=== PATIENT | male | born 1940 | race Caucasian/White ===

== ENCOUNTER → 2016-11-13 | Outpatient (CLI) | payer BC ==
[~2016-11-13] MED LIST: ASPI325T39 PO; CLOP1TAB15 PO; FLM4 PO; METO25TA3 PO; NIAC750T2 PO; NTRGSL/4 UT; TIOTCAP INH
[2016-11-13 12:23] LABS: BASO % 0.4 %; BASO ABS # 0.02 K/uL (0-0.2); COMPLETE YES; EOS % 4.5 %; HEMATOCRIT 44.8 % (42-52); IG% 0.4 %; LYMPH % 27.8 %; LYMPH ABS # 1.41 K/uL (1.2-3.4); MEAN CELL VOLUME 98.9 fL (80-100); MEAN CORPUSCULAR HGB CONC 32.4 g/dl (32-36); MEAN PLATELET VOLUME 11.2 fL (7.4-10.4); MONO % 9.3 %; NEUT % 57.6 %; PLATELET COUNT 185 K/uL (130-400); RED BLOOD COUNT 4.53 M/uL (4.7-6.1); WHITE BLOOD COUNT 5.07 K/uL (4.8-10.8)
[2016-11-13 12:37] LABS: URINE APPEARANCE CLEAR (CLEAR); URINE BILIRUBIN NEG (NEG); URINE COLOR YELLOW; URINE EPITHELIAL CELL AUTO 0-5 /lpf (0-5); URINE NITRITE NEG (NEG); UROBILINOGEN NEG (NEG); ZZUR CULT IF INDIC CLEAN CATCH NO
[2016-11-13 12:43] LABS: MANUAL MICROSCOPIC REQUIRED? NO; REVIEW REQ? YES
[2016-11-13 13:17] LABS: ESTIMATED AVERAGE GLUCOSE 114 mg/dl; HA1C FLAG Normal (Normal)
[2016-11-13 14:19] LABS: ALT/SGPT 17 U/L (12-78); AST/SGOT 17 U/L (15-37); BLOOD UREA NITROGEN 26 mg/dl (7-18); BUN/CREATININE RATIO 18.8 (10-20); CARBON DIOXIDE 30 mmol/L (21-32); CHLORIDE 106 mmol/L (98-107); GLUCOSE 97 mg/dl (70-99); POTASSIUM 4.8 mmol/L (3.5-5.1); SODIUM 140 mmol/L (136-145)
[2016-11-13 14:21] LABS: CALCIUM 9.5 mg/dl (8.5-10.1)
[2016-11-13 14:24] LABS: ALB/GLOB RATIO 1.1 (0.9-2); ALKALINE PHOSPHATASE 41 U/L (45-117)
== END | disposition home or self-care (01) ==
LOC: C.LABBFT 08:22
PROVIDERS: ATTEND Internal Medicine
DX: I25.10 Atherosclerotic heart disease of native coronary artery without angina pectoris (principal); R73.01 Impaired fasting glucose

== ENCOUNTER 2018-09-20 08:54 | Inpatient (IN) ==
--- OUTSIDE RECORDS SUMMARY | 2018-09-20 08:57 | External Medical Summary | Continuity of Care Document ---
:1940 Author Name Seymour Cortes, Provider Address Unavailable Unavailable , Care Team Providers Name Role Phone Perry Zee M.D. Unavailable [email or web address] Nazario M.D. Unavailable [email or web address] [email or web address] HOWARD M.D. 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) Cataract (366.9) (H26.9) Preoperative clearance (V72.84) (Z01.818) Atypical chest pain (786.59) (R07.89) Generalized osteoarthritis of unspecified site (715.00) (M15 .9) Inflamed seborrheic keratosis (702.11) (L82.0) Hearing loss (389.9) (H91.90) Anemia (285.9) (D64.9) Nocturia (788.43) (R35.1) Sleep apnea (780.57) (G47.30) Hypercholesterolemia (272.0) (E78.00) Chronic obstructive pulmonary disease (496) (J44.9) Carotid artery plaque (433.10) (I65.29) Atherosclerosis of [place] coronary arter y without angina pectoris (414.01) (I25.10) Aortic stenosis, moderate (424.1) (I35.0) Hypertension (401.9) (I10) Impaired fasting glucose (790.21) (R73.01) Chronic kidney disease, stage 3 (585.3) (N18.3) Functional Status Hearing loss Allergies and Adverse Reactions irbesartan (Allergy) Reaction: Fatigue Iron (Allergy) Lipitor TABS (Allergy) Niacin TABS (Allergy) Reaction: Other Penicillins (Allergy) Pravachol TABS (Allergy) Zetia TABS (Allergy) Zinc (Allergy) Zocor TABS (Allergy) Medications Aspirin Low Dose 81 MG TABS; TAKE 1 TABLET DAILY. Sophia Nazario Refills: 0 Tamsulosin HCl - 0.4 MG Oral Capsule; TAKE 1 CAPSULE Daily Sophia Bardales Start: 07-Apr-2012 Quantity: 90 Refills: 3 Nitrostat 0.4 MG Sublingual Tablet Subli ngual; TAKE DIRECTED NEEDED FOR CHEST PAIN Sophia Nazario Start: 10-Sep-2011 Quantity: 25 Refills: 6 Metoprolol Succinate ER 50 MG Oral Table t Extended Release 24 Hour; TAKE 1 AND 1/2 TABLETS DAILY. Sophia Nazario Start: 18-Feb-2018 Quantity: 135 Refills: 3 Ventolin HFA 108 (90 Base) MCG/ACT Inhal ation Aerosol Solution; Two puffs every 4-6 hours as needed for shortness of breath. You may take 2 puffs prior to activity. Sophia Howard Start: 02-May-2017 Quantity: 3 18 GM Inhaler Refills: 3 Stiolto Respimat 2.5-2.5 MCG/ACT Inhalat ion Aerosol Solution; USE 2 INHALATIONS DAILY DIRECTED Sophia Howard Start: 26-May-2018 Quantity: 48 Refills: 0 Procedures History of Thoracotomy Status: Completed History of Appendectomy Status: Complete d History of Wrist Surgery Status: Complet ed History of Hernia Repair Status: Complet ed History of Rotator Cuff Repair Status: C ompleted Immunizations Diphtheria-Tetanus Toxoids 2-5 LFU Intramuscular Injectable On: 01-May-2000 Pneumococcal polysaccharide vaccine, 23 valent On: 2006 Influenza On: 24-Feb-2009 0:00 Influenza On: 09-May-2011 13:13 Lot #: [id number], [employer] Fluzone INJ On: 16-Apr-2012 10:41 Lot #: [id number], [employer] Influenza On: 05-May-2013 13:42 Lot #: [id number], [employer] Influenza On: 30-Mar-2014 12:35 Lot #: [id number], [employer] Prevnar 13 Intramuscular Suspension On: 04-Nov-2014 9:12 Lot #: [id number], [employer] Fluzone High-Dose Intramuscular Suspension On: 29-Mar-2015 1 0:53 Lot #: [id number], [employer] Influenza On: 09-May-2016 15:03 Lot #: [id number], [employer] Fluzone High-Dose Intramuscular Suspension On: 12-Mar-2017 1 0:35 Lot #: [id number], [employer] Fluzone High-Dose 0.5 ML Intramuscular Suspension Pref illed Syringe On: 10-Mar-2018 11:23 Lot #: [id number], [employer] Family History Unknown Family Member Family history of Colon Cancer (V16.0) Status: Active C omments: Family History Family history of Hypertension (V17.49) Status: Active Comments: Family History Mother No pertinent family history (V49.89) (Z78.9) Status: Active Brother Family history of cerebrovascular accident (CVA) (V17.1) (Z8 2.3) Status: Active Social History - Smoking Status Unknown if ever smoked Former smoker Plan of Treatment Planned Encounters Appointment; Stephon Nazario M.D. Start: 06-Oct-2018 9:45 Requ est Planned Observations Planned Goals not documented Results No Known Results Results not documented Encounters Appointment; Jak Howard M.D. 07-May-2018 8:30 Encounter Diagnosis: Problem not documented Appointment; Perry Zee M.D. 02-Apr-2018 9:15 Encounter Diagnosis: Problem not documented Appointment; Stephon Nazario M.D. 10-Mar-2018 10:00 Encounter Diagnosis: Problem not documented Appointment; MANISH OLSON 10-Mar-2018 9:30 Encounter Diagnosis: Problem not documented Appointment; Ava Aguilar PA-C 18-Feb-2018 11:00 Encounter Diagnosis: Problem not documented Appointment; Ava Aguilar PA-C 10-Feb-2018 10:00 Encounter Diagnosis: Problem not documented Appointment; Ava Aguilar PA-C 24-Jan-2018 14:30 Encounter Diagnosis: Problem not documented Appointment; Ethel Nunes PA-C 26-Dec-2017 9:00 Encounter Diagnosis: Problem not documented Appointment; Ava Aguilar PA-C 19-Dec-2017 10:30 Encounter Diagnosis: Problem not documented Appointment; Ava Aguilar PA-C 18-Nov-2017 9:00 Encounter Diagnosis: Problem not documented Appointment; Jak Howard M.D. 04-Nov-2017 13:10 Encounter Diagnosis: Problem not documented Appointment; Wellness, Nurse 04-Nov-2017 12:30 Encounter Diagnosis: Problem not documented Appointment; Vascular, Studies SC1 01-Oct-2017 14:00 Encounter Diagnosis: Problem not documented Appointment; Echo/Stress, Echo/Stress 30-Sep-2017 13:00 Encounter Diagnosis: Problem not documented Appointment; Perry Zee M.D. 26-Sep-2017 9:30 Encounter Diagnosis: Problem not documented Appointment; Pulmonary, Funct Testing 26-Sep-2017 8:30 Encounter Diagnosis: Problem not documented Appointment; Stephon Nazario M.D. 09-Sep-2017 10:30 Encounter Diagnosis: Problem not documented Appointment; Jak Howard M.D. 02-May-2017 8:10 Encounter Diagnosis: Problem not documented Appointment; Perry Zee M.D. 28-Mar-2017 10:30 Encounter Diagnosis: Problem not documented Appointment; Stephon Nazario M.D. 12-Mar-2017 10:00 Encounter Diagnosis: Problem not documented Appointment; Jak Howard M.D. 13-Nov-2016 7:50 Encounter Diagnosis: Problem not documented Appointment; Perry Zee M.D. 25-Sep-2016 10:15 Encounter Diagnosis: Problem not documented Appointment; Pulmonary, Funct Testing 25-Sep-2016 9:00 Encounter Diagnosis: Problem not documented Appointment; Stephon Nazario M.D. 20-Sep-2016 11:30 Encounter Diagnosis: Problem not documented Appointment; Stephon Nazario M.D. 06-Oct-2018 9:45 Encounter Diagnosis: Problem not documented
[2018-09-20] MEDS ORDERED: ASPIRIN CHEW 324 MG PO STA (09:20)
[2018-09-20 09:29] LABS: Basophils # (auto) 0.02 K/uL (0-0.2); Basophils % (auto) 0.4 %; Eosinophils # (auto) 0.41 K/uL (0-0.5); Eosinophils % (auto) 7.3 %; Hematocrit (blood only) 42.6 % (42-52); Hemoglobin 14.3 g/dL (14.0-18.0); Immature Granulocytes # (auto) 0.02 K/uL (0.00-0.02); Immature Granulocytes % (auto) 0.4 %; Lymphocytes # (auto) 1.24 K/uL (1.2-3.4); Lymphocytes % (auto) 22.1 %; Mean Corpuscular Hgb Conc 33.6 g/dL (32-36); Mean Platelet Volume 10.7 fL (7.4-10.4); Monocytes # (auto) 0.55 K/uL (0.11-0.59); Monocytes % (auto) 9.8 %; Neutrophils # (auto) 3.36 K/uL (1.4-6.5); Platelet Count 145 K/uL (130-400); RDW Coefficient of Variation 14.2 % (11.5-14.5); RDW Standard Deviation 50.6 fL (36.4-46.3); Red Blood Count 4.39 M/uL (4.7-6.1)
--- NOTE | 2018-09-20 09:42 | XRay Report ---
XR chest 1V portable CLINICAL HISTORY: Chest Pain COMPARISON STUDY: Chest radiograph February 05, 2011. FINDINGS: There is no pneumothorax or pleural effusion. Linear left lung opacity favors atelectasis o r scarring. There is no evidence for pulmonary edema. Note is made of mild cardiomegaly. Mediastinal contours are otherwise unremarkable. IMPRESSION: No acute cardiopulmonary findings. No significant change in appearance of the chest. Electronically signed by: Fletcher Rose M.D. 09/20/2018 9:41 AM
[2018-09-20 09:44] LABS: Albumin Level 3.6 gm/dl (3.4-5.0); Calcium 9.4 mg/dl (8.5-10.1); Creatinine Clr Calc Pharmacy 47.5 ml/min; Est GFR (African American) 51.8; Est GFR (Non-African American) 44.7; Potassium 4.6 mmol/L (3.5-5.1)
[2018-09-20 10:01] LABS: Bilirubin,Total 0.6 mg/dl (0.2-1); Globulin 3.5 gm/dl (2.5-4.0); Total Protein 7.1 gm/dl (6.4-8.2); Troponin I 2.6 ng/ml (0-0.045)
--- NOTE | 2018-09-20 10:34 | History & Physical Report ---
Date of Service September 20, 2018 Assessment & Plan (1) NSTEMI (non-ST elevated myocardial infarction): admit telemetry Stat consult cardiology - Dr. Richardson and Dr. Diaz discussed patient's case - recommends plavix, ASA, heparin gtt. ED discussed case with Dr. Conway who will see patient Patient currently without chest pain since nitro this morning EKG with infero lateral ST changes Patient unable to tolerate statins due to myalgias, Patient did not take his morning metoprolol today - will order dose now. Troponin 2.6 initially, will trend (2) Coronary artery disease: History DUC to circ treatment as above (3) Hypertension: continue metoprolol (4) COPD (chronic obstructive pulmonary disease): Continue tiotropium - olodaterol inhaler (5) Sleep apnea: may use own CPAP (6) CKD (chronic kidney disease), stage III: Baseline creatinine 1.4 - at baseline Renally dose medications where possible (7) DVT prophylaxis: heparin gtt, SCDs History of Present Illness Mr. Guzman presents today for chest pain. Pain started yesterday with pressure under right armpit. This morning at 0700 he had extension of pain across chest to left shoulder and shoulder blades. Took a nitro at that time which relieved his pain and then he presented to the ED. He had associated sob, lightheadedness, denies diaphoresis or nausea. No chest pain or sob now. He has had increased cough since August with small amount of sputum but it really . 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 [employer] Famhx: Mother of old age, father had cancer Primary Care Provider: Jak Howard MD Allergies Allergy/AdvReac Type Severity Reaction Status Date / Time iron Allergy Mild CHEST PAIN Verified 09/20/18 10:30 Penicillins Allergy Mild RASH Unverified 09/20/18 10:30 zinc Allergy Mild CHEST PAIN Verified 09/20/18 10:30 ezetimibe Allergy Unknown ACHE AND Verified 09/20/18 10:30 JOINT PAIN metoprolol Allergy Unknown AT HIGHER Verified 09/20/18 10:30 DOSAGE - MUSCLES ACHES irbesartan [From Avapro] Allergy Unknown Unverified 09/20/18 10:31 atorvastatin AdvReac Mild INTOLERANT Verified 09/20/18 10:30 simvastatin AdvReac Mild INTOLERANT Verified 09/20/18 10:30 Home Medications Home Medications Medication Instructions Recorded Confirmed Type aspirin 81 mg PO DAILY 09/20/18 09/20/18 History metoprolol succinate [Toprol XL] 50 mg PO DAILY 09/20/18 09/20/18 History nitroglycerin [Nitrostat] 0.4 mg SUBLINGUAL DAILY 09/20/18 09/20/18 History tamsulosin 0.4 mg PO DAILY 09/20/18 09/20/18 History tiotropium-olodaterol [Stiolto 1 puff INHALATION DAILY 09/20/18 09/20/18 History Respimat] Past Med/Surg History Medical History Coronary artery disease (Chronic) Surgical History History of coronary artery stent placement Family History Other Family history non-contributory Social History Preferred Language: Spanish Hydrotherapist Required: No Beliefs That Will Affect Care: None marital status: Current Living Situation: Alone current occupational status: retired Other Information That Helps Us Care for You: No Feels Safe at Home: Yes Smoking Status: Former smoker Hx Alcohol Use: Yes Alcohol type: beer and wine Hx Substance Use: No Review of Systems Review of Systems: All systems reviewed & are unremarkable except as noted in HPI & below Physical Exam Physical Exam: General: no distress Eyes: normal inspection, PERLL Respiratory: chest non tender, clear to auscultation, normal breath sounds, no respiratory distress, no accessory muscle use Cardiac: regular rate and rhythm, no rub or gallop, systolic murmur LLSB II/, no edema, no jvd GI/: active bowel sounds, no abd pain or tenderness, soft, non distended Extremities: normal range of motion, normal strength, non tender Neuro/Psych: alert and oriented x 3, normal mood and affect Skin: normal color, dry Results & Data Vital Signs (Past 12 Hours) Vital Signs Temp Pulse Pulse Resp BP BP Pulse Ox 09/20/18 10:02 53 L 16 112/90 95 09/20/18 09:04 36.8 C 56 L 18 174/88 H 98 Code Status & VTE Plan Code Status full code Supervising Physician Co-Signing Physician Notes I supervised Aniyah Durbin NP on this admission. I interviewed and examined the patient independently of her, and we discussed the plan together. The plan is as written in her note except for any following changes/exceptions: 78yo M w/ hx of CAD with stent ~10 years ago now presents with chest pain convincing for ischemia. Resolved after single nitro. Troponin elevated to [address] Richardson. - Initiate DAPT - Heparin gtt - Continue beta-christelle - Trend troponins and EKGs - Echo - Plan for cath on Saturday
[2018-09-20] MEDS ORDERED: CLOPIDOGREL BISULFATE 300 MG TAB PO STA (10:58)
[2018-09-20 11:18] LABS: Partial Thromboplastin Ratio 0.9; Partial Thromboplastin Time 25.2 Seconds (21.0-31.0); Prothrombin Time 9.9 Seconds (9.0-12.0)
[2018-09-20] MEDS ORDERED: HEPARIN SOD (PORCINE) 1000 UNIT/ML 10 ML VIAL ONE (11:19)
[2018-09-20] MEDS ORDERED: HEPARIN 25000 UNIT/500 ML D5W IV ONE (11:19)
[2018-09-20] MEDS ORDERED: ONDANSETRON INJ 2 MG/ML 2 ML VIAL IV PRN (11:27)
[2018-09-20] MEDS ORDERED: ACETAMINOPHEN 325 MG TAB PO PRN (11:27)
[2018-09-20] MEDS ORDERED: POLYETHYLENE (MIRALAX) 17 GM PACK PO PRN (11:27)
--- NOTE | 2018-09-20 11:32 | Emergency Department Note ---
Entered by Clarissa Franco acting as a scribe for Rodrigo Farias MD History of Present Illness General Chief complaint: Chest Pain Stated complaint: CHEST PAIN/CARDIAC HX Time Seen by Provider: 09/20/18 09:15 Source: patient History of Present Illness Onset (ago): hour(s) (this morning) Location: chest Pain Consistency: + now resolved and + other (episode) Maximum Pain Intensity: 0 Quality: + other (chest pressure) Relieved By: + medication (nitro) Associated symptoms: + shortness of breath and + other (pain in left arm/shoulder) The patient is a 78 year old male that is presenting to the Emergency Room with complaints of an episode of chest pain that occurred this morning around 0700. The patient reports that he woke up and noticed some discomfort in his left shoulder/arm that was not resolved by a change in position. He states that he had shortness of breath when he got up and walked around. He notes that he started experiencing pressure in his chest that radiated to his right shoulder blade. He reports that he took a nitroglycerin at that time. He states that he started having a tingly and warm feeling in his bilateral arms along with a ri ght-sided headache after taking the nitro. He notes that these symptoms have since resolved and that he feels well now. He denies any pain at present. He states that the episode lasted for around 30-45 minutes. He notes that he was experiencing some chest discomfort yesterday on the right side that radiated to his right armpit. The patient reports that he has a history of heart disease and had stents placed about 10 years. He notes that he has not had to take nitro since this time and he denies that his current symptoms resemble his symptoms at that time. He states that he takes aspirin daily but notes that he has not taken any of his medications today. He denies taking any blood thinners as he was taken off Plavix one year ago. He denies any rashes or any overuse of his arms. He notes that he is scheduled to have stress tests and an EKG in 2 days. Home Medications Home Medications Medication Instructions Recorded Confirmed Type aspirin 81 mg PO DAILY 09/20/18 09/20/18 History metoprolol succinate [Toprol XL] 50 mg PO DAILY 09/20/18 09/20/18 History nitroglycerin [Nitrostat] 0.4 mg SUBLINGUAL DAILY 09/20/18 09/20/18 History tamsulosin 0.4 mg PO DAILY 09/20/18 09/20/18 History tiotropium-olodaterol [Stiolto 1 puff INHALATION DAILY 09/20/18 09/20/18 History Respimat] Allergies Allergy/AdvReac Type Severity Reaction Status Date / Time iron Allergy Mild CHEST PAIN Verified 09/20/18 10:30 Penicillins Allergy Mild RASH Unverified 09/20/18 10:30 zinc Allergy Mild CHEST PAIN Verified 09/20/18 10:30 ezetimibe Allergy Unknown ACHE AND Verified 09/20/18 10:30 JOINT PAIN metoprolol Allergy Unknown AT HIGHER Verified 09/20/18 10:30 DOSAGE - MUSCLES ACHES irbesartan [From Avapro] Allergy Unknown Unverified 09/20/18 10:31 atorvastatin AdvReac Mild INTOLERANT Verified 09/20/18 10:30 simvastatin AdvReac Mild INTOLERANT Verified 09/20/18 10:30 Past Med/Surg History Medical History Coronary artery disease (Chronic) Surgical History History of coronary artery stent placement Family History Other Family history non-contributory Social History Preferred Language: [place] 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 and A total of 10 systems reviewed and were otherwise negative Physical Exam Vital Signs Vital Signs - 24 hr 09/20/18 09:04 09/20/18 10:02 09/20/18 10:57 Temperature 36.8 C Temperature Source Oral Sepsis Recent Fever Within 48 Hours No Sepsis New/Unexplained Change in Mental Status No Sepsis Action Taken by Nursing No Action Required Pulse Rate 56 L Pulse Rate [Apical] 53 L 50 L Pulse Rhythm [Apical] Pulse Strength [Apical] Respiratory Rate 18 16 16 Respiratory Effort / Characteristics Respiratory Depth Respiratory Pattern Blood Pressure 174/88 H Blood Pressure [Right Arm] 112/90 149/87 H Blood Pressure Mean 116 Blood Pressure Mean [Right Arm] 97 107 Blood Pressure Position Sitting Blood Pressure Position [Right Arm] Pulse Oximetry 98 95 95 Oxygen Delivery Method Room Air Room Air Room Air 09/20/18 12:06 09/20/18 12:08 09/20/18 12:10 Temperature 36.8 C 36.8 C Temperature Source Oral Oral Sepsis Recent Fever Within 48 Hours Sepsis New/Unexplained Change in Mental Status Sepsis Action Taken by Nursing Pulse Rate 50 L Pulse Rate [Apical] 51 L 51 L Pulse Rhythm [Apical] Regular Regular Pulse Strength [Apical] Normal Normal Respiratory Rate 18 Respiratory Effort / Characteristics Non-Labored Non-Labored Respiratory Depth Normal Normal Respiratory Pattern Regular Regular Blood Pressure Blood Pressure [Right Arm] 177/87 H 177/87 H Blood Pressure Mean Blood Pressure Mean [Right Arm] 117 117 Blood Pressure Position Blood Pressure Position [Right Arm] Sitting Pulse Oximetry 96 96 Oxygen Delivery Method Room Air Room Air 09/20/18 15:20 Temperature 36.5 C Temperature Source Oral Sepsis Recent Fever Within 48 Hours Sepsis New/Unexplained Change in Mental Status Sepsis Action Taken by Nursing Pulse Rate Pulse Rate [Apical] 50 L Pulse Rhythm [Apical] Pulse Strength [Apical] Respiratory Rate 18 Respiratory Effort / Characteristics Respiratory Depth Respiratory Pattern Blood Pressure Blood Pressure [Right Arm] 173/91 H Blood Pressure Mean Blood Pressure Mean [Right Arm] 118 Blood Pressure Position Blood Pressure Position [Right Arm] Lying Pulse Oximetry 96 Oxygen Delivery Method Room Air General: Non-ill appearing older male in no acute distress. HEENT: Normal cephalic atraumatic. Pupils are equal round and reactive to light. Extraocular movements are intact. Oropharynx is pink with moist mucous membranes. No swelling of the mouth lips or tongue. Neck: Supple with a midline trachea. No meningeal signs or stiffness, no JVD or bruits. No Stridor. Chest: Clear to auscultation bilaterally. No wheezes or rhonchi. No increased work of breathing. Heart: regular rate and rhythm. Abdomen: Soft nontender, nondistended without rebound guarding or rigidity. Extremities: No cyanosis clubbing or edema. No calf tenderness or asymmetry Spine/Back. Non tender to palpation. No CVA tenderness Skin: Good turgor without rashes. Neurologic exam: Cranial nerves two through 12 are intact. Motor and sensation are intact and symmetrical throughout. Course 0917:The patient was evaluated in room B10. A complete history and physical examination was performed. 0949: I discussed the patient's case with Dr. Wynn, Cardiology, who will evaluate the patient and determine a treatment plan. 1006: I discussed the patient's case with Dr. Diaz, [facility] Hospitalist, who will evaluate the patient for further care. 1015: Upon reevaluation, the patient is resting comfortably. I discussed laboratory and radiographic results with the patient. He verbalized agreement of the treatment plan. The patient will be evaluated for further management and care. Consultations Consultation #1: I discussed the patient's case with Dr. Wynn, Cardiology, who will evaluate the patient and determine a treatment plan. Time: 09:49 Consultation #2: I discussed the patient's case with Dr. Diaz [facility] Hospitalis t, who will evaluate the patient for further care. Time: 10:06 Administered Medications Heparin Sodium/Dextrose (Heparin Sodium/Dextrose) 25,000 units in 500 mls @ 29 mls/hr IV .[id number] [facility]; Protocol Stop: 10/20/18 12:29 Last Admin: 09/20/18 12:32 Dose: 1,450 units/hr, 29 mls/hr Documented by: [id number] Cosigned by: [id number] Metoprolol Succinate (Toprol Xl) 75 mg PO DAILY [facility] Stop: 10/20/18 11:59 Last Admin: 09/20/18 13:21 Dose: 75 mg Documented by: [id number] Discontinued Medications Aspirin (Aspirin) 324 mg PO NOW STA Stop: 09/20/18 09:21 Last Admin: 09/20/18 10:00 Dose: 324 mg Documented by: [id number] Clopidogrel Bisulfate (Plavix) 300 mg PO NOW STA Stop: 09/20/18 10:59 Last Admin: 09/20/18 11:26 Dose: 300 mg Documented by: [id number] Heparin Sodium (Porcine) (Heparin Iv Bolus) Confirm Administered Dose 10,000 units .ROUTE .[facility] Stop: 09/20/18 11:20 Last Admin: 09/20/18 11:28 Dose: 7,000 units Documented by: [id number] Cosigned by: [id number] Heparin Sodium/Dextrose () 1 ea IV NOW STA; Protocol Stop: 09/20/18 10:55 Last Admin: 09/20/18 12:31 Dose: 1 ea Documented by: [id number] Heparin Sodium/Dextrose (Heparin Sodium/Dextrose) Confirm Administered Dose 25,000 units IV .[facility]-MED ONE Stop: 09/20/18 11:20 Last Admin: 09/20/18 11:28 Dose: 1,450 units Documented by: [id number] Cosigned by: [id number] Perflutren Lipid Microsphere (Definity) 2 ml IV ONCE ONE Stop: 09/20/18 13:45 Last Admin: 09/20/18 13:44 Dose: 2 ml Documented by: [id number] Medical Decision Making Differential Diagnosis Differential Diagnosis: Etiologies such as acute coronary syndrome, PE, musculoskeletal, electrolyte or metabolic abnormalities as well as others were considered. Medical Records Attestation: I reviewed the patient's medical records. Home Medications Current Medication List: was personally reviewed by me Laboratory Data Attestation: I reviewed the patient's lab results. Result diagrams: 09/20/18 09:14 09/20/18 09:14 Lab Results 09/20/18 09/20/18 09/20/18 Range/Units 09:14 09:14 09:14 WBC 5.60 (4.8-10.8) K/uL RBC 4.39 L (4.7-6.1) M/uL Hgb 14.3 (14.0-18.0) g/dL Hct 42.6 (42-52) % MCV 97.0 (80-100) fL MCH 32.6 (25-34) pg MCHC 33.6 (32-36) g/dL RDW Std Deviation 50.6 H (36.4-46.3) fL RDW Coeff of Yolande 14.2 (11.5-14.5) % Plt Count 145 (130-400) K/uL MPV 10.7 H (7.4-10.4) fL Immature Gran % (Auto) 0.4 % Neut % (Auto) 60.0 % Lymph % (Auto) 22.1 % [place] % (Auto) 9.8 % Eos % (Auto) 7.3 % Baso % (Auto) 0.4 % Immature Gran # (Auto) 0.02 (0.00-0.02) K/uL Neut # (Auto) 3.36 (1.4-6.5) K/uL Lymph # (Auto) 1.24 (1.2-3.4) K/uL [place] # (Auto) 0.55 (0.11-0.59) K/uL Eos # (Auto) 0.41 (0-0.5) K/uL Baso # (Auto) 0.02 (0-0.2) K/uL PT 9.9 (9.0-12.0) Seconds INR 1.0 (0.9-1.1) APTT 25.2 (21.0-31.0) Seconds PTT Ratio 0.9 Sodium 142 (136-145) mmol/L Potassium 4.6 (3.5-5.1) mmol/L Chloride 110 H (98-107) mmol/L Carbon Dioxide 27 (21-32) mmol/L Anion Gap 5.0 (3-11) BUN 19 H (7-18) mg/dl Creatinine 1.48 H (0.6-1.4) mg/dl Est Cr Clr Drug Dosing 47.5 ml/min Est GFR ( Amer) 51.8 Est GFR (Non-Af Amer) 44.7 BUN/Creatinine Ratio 13.0 (10-20) Glucose 101 H (70-99) mg/dl Calcium 9.4 (8.5-10.1) mg/dl Total Bilirubin 0.6 (0.2-1) mg/dl AST 30 (15-37) U/L ALT 19 (12-78) U/L Alkaline Phosphatase 41 L (45-117) U/L POC Troponin I (0-0.045) ng/ml Troponin I 2.600 H* (0-0.045) ng/ml Total Protein 7.1 (6.4-8.2) gm/dl Albumin 3.6 (3.4-5.0) gm/dl Globulin 3.5 (2.5-4.0) gm/dl Albumin/Globulin Ratio 1.0 (0.9-2) Lipase 165 (73-393) U/L 09/20/18 Range/Units 09:25 WBC (4.8-10.8) K/uL RBC (4.7-6.1) M/uL Hgb (14.0-18.0) g/dL Hct (42-52) % MCV (80-100) fL MCH (25-34) pg MCHC (32-36) g/dL RDW Std Deviation (36.4-46.3) fL RDW Coeff of Yolande (11.5-14.5) % Plt Count (130-400) K/uL MPV (7.4-10.4) fL Immature Gran % (Auto) % Neut % (Auto) % Lymph % (Auto) % [place] % (Auto) % Eos % (Auto) % Baso % (Auto) % Immature Gran # (Auto) (0.00-0.02) K/uL Neut # (Auto) (1.4-6.5) K/uL Lymph # (Auto) (1.2-3.4) K/uL [place] # (Auto) (0.11-0.59) K/uL Eos # (Auto) (0-0.5) K/uL Baso # (Auto) (0-0.2) K/uL PT (9.0-12.0) Seconds INR (0.9-1.1) APTT (21.0-31.0) Seconds PTT Ratio Sodium (136-145) mmol/L Potassium (3.5-5.1) mmol/L Chloride (98-107) mmol/L Carbon Dioxide (21-32) mmol/L Anion Gap (3-11) BUN (7-18) mg/dl Creatinine (0.6-1.4) mg/dl Est Cr Clr Drug Dosing ml/min Est GFR ( Amer) Est GFR (Non-Af Amer) BUN/Creatinine Ratio (10-20) Glucose (70-99) mg/dl Calcium (8.5-10.1) mg/dl Total Bilirubin (0.2-1) mg/dl AST (15-37) U/L ALT (12-78) U/L Alkaline Phosphatase (45-117) U/L POC Troponin I 2.08 H (0-0.045) ng/ml Troponin I (0-0.045) ng/ml Total Protein (6.4-8.2) gm/dl Albumin (3.4-5.0) gm/dl Globulin (2.5-4.0) gm/dl Albumin/Globulin Ratio (0.9-2) Lipase (73-393) U/L Imaging Data Radiologist's Impression: Radiology results as stated below per my review and the radiologist's interpretation: XR chest 1V portable CLINICAL HISTORY: Chest Pain COMPARISON STUDY: Chest radiograph February 05, 2011. FINDINGS: There is no pneumothorax or pleural effusion. Linear left lung opacity favors atelectasis or scarring. There is no evidence for pulmonary edema. Note is made of mild cardiomegaly. Mediastinal contours are otherwise unremarkable. IMPRESSION: No acute cardiopulmonary findings. No significant change in appearance of the chest. Electronically signed by: Fletcher Rose M.D. 09/20/2018 9:41 AM ECG Data Attestation: I personally reviewed and interpreted this ECG as follows: Indication: chest pain Rhythm: normal sinus Findings: + other (inferior biphasic t waves) Comparison ECG Date: from (04/27/2011) Change: the following changes noted (biphasic t waves) Blood Pressure Blood Pressure Findings: Normal blood pressure MDM Narrative This patient comes in as described above. He was placed in room B 10. he has a history of coronary disease and has not had nitroglycerin usage for many years comes in after having an episode of chest pain that was severe this morning. it lasted about 20 to 30 minutes and he took a nitro felt sick for a minute and got better. There is associated nausea and shortness of breath when he had the chest pain. he also had some vague right-sided chest pain last evening. Today was bilateral. He is asymptomatic at present and looks well. IV access established was ordered aspirin 324 mg chewable. he has not yet taken his aspirin today. he did come in by private vehicle. His initial EKG shows some nonspecific ST abnormality with biphasic T waves inferiorly and some possible mild depression in V3 and 4. I did a subsequent EKG is no change or progression compared to EKG #1. his troponin was elevated to greater than 2 however he is been asymptomatic and pain-free during his entire visit. chest x-ray was unremarkable. he has some chronic renal insufficiency seen on his blood work. I did consult Dr. Flores and as I was concerned that the patient had an elevated troponin and some EKG changes but at this point he does not meet criteria for acute STEMI or acute cath and again is asymptomatic. I also consulted the [facility] hospitalist to see him for these measures. He will be admitted for further cardiac evaluation and work-up. Impression & Plan Unstable angina, Chest pain, Elevated troponin Discharge Plan Visit Data *Final* Discharge Date/Time: 09/20/18 11:13 Chief Complaint: Chest Pain Stated Complaint: CHEST PAIN/CARDIAC HX ED Provider: Rodrigo Farias Discharge Problem: Unstable angina, Chest pain, Elevated troponin Patient Disposition: Admitted As Inpatient Discharge Instructions Interventions: ED Discharge Assessment Last Done: 09/20/18 11:13 Discharge Problem: Chest pain Qualifiers: Chest pain type: unspecified Qualified Code(s): R07.9 - Chest pain, unspecified The scribe's documentation has been prepared under my direction and personally reviewed by me in its entirety. I confirm that the note above accurately reflects all work, treatment, procedures, and medical decision making performed by me.
--- NOTE | 2018-09-20 12:10 | Cardiology Consultation ---
Date of Consultation September 20, 2018 Assessment & Plan (1) Chest pain: He presents with several episodes of chest discomfort this morning which are highly suspicious for angina, they occurred at rest which would be consistent with unstable angina. He has not had these symptoms since stent placement, he did take a nitroglycerin which she has never used before. Ultimately the discomfort resolved before he came into the emergency room but was present for perhaps several hours including when he first got up at 430 or 5 in the morning and initially had the discomfort. Additionally he had some atypical discomfort the evening before, it does not sound anginal but it is unusual for him to have that discomfort. I believe the discomfort this morning was ischemic. (2) Elevated troponin: His troponin is elevated to 2.8 on arrival this morning. He does not have an ST segment elevation myocardial infarction, so this could be demand ischemia or a non-ST segment elevation myocardial infarction. Since his pain was relieved following the nitroglycerin he was admitted for conservative management for the weekend, including increase in his platelet inhibitors in addition of an anticoagulant. I would like to see the trend of his troponin but almost certainly this represents some type of progression of coronary artery disease. (3) Coronary artery disease: He has known coronary artery disease and stent placement but has not had problems with angina and has not had exertional symptoms recently. Most likely he has progression of disease. He has been treated for it with aspirin, he lists intolerances to most of the statin agents so he is not on a statin. As long as he does not have recurrent symptoms to suggest an unstable pattern we will plan on catheterization on Saturday. History of Present Illness Reason for Consultation: Chest discomfort Attending Physician: Willi Diaz MD History of Present Illness This is a very pleasant 78-year-old gentleman who has a history of hypercholesterolemia, hypertension, moderate aortic stenosis as well as atherosclerosis involving the carotid arteries (although not severe), subclavian artery and coronary artery disease. His coronary artery disease history includes a non-ST elevation myocardial infarction March 2010 where he had a stent placed in the proximal circumflex for a 95% stenosis. Subsequently his left ventricular function was slightly diminished at about 50%. By September 2017 he had normal left ventricular function, moderate aortic stenosis with a valve area 1.2 cm. He is actually scheduled for routine echocardiography September 22, 2018 to follow his valve. He presented to the emergency room today with chest discomfort starting at around 430 or 5:00 AM this morning, he woke up not feeling right, walked out to the kitchen and was quite short of breath and had to go back to his room and put on his BiPAP machine. This was unusual for him. This happened again at 7 AM this morning. He describes discomfort in his left shoulder and arm, associated with shortness of breath and a pressure sensation in his chest. He took a nitroglycerin, that did not resolve the symptoms immediately although they did resolve before he came into the emergency room. He did have some atypical discomfort the day before, this was right-sided with radiation to his right arm. In the emergency room his troponin was elevated to 2.6, his electrocardiogram showed some ST depression which is more nonspecific than diagnostic of ischemia and no ST elevation. By then his symptoms had resolved however. Allergies Allergy/AdvReac Type Severity Reaction Status Date / Time iron Allergy Mild CHEST PAIN Verified 09/20/18 10:30 Penicillins Allergy Mild RASH Unverified 09/20/18 10:30 zinc Allergy Mild CHEST PAIN Verified 09/20/18 10:30 ezetimibe Allergy Unknown ACHE AND Verified 09/20/18 10:30 JOINT PAIN metoprolol Allergy Unknown AT HIGHER Verified 09/20/18 10:30 DOSAGE - MUSCLES ACHES irbesartan [From Avapro] Allergy Unknown Unverified 09/20/18 10:31 atorvastatin AdvReac Mild INTOLERANT Verified 09/20/18 10:30 simvastatin AdvReac Mild INTOLERANT Verified 09/20/18 10:30 Home Medications Home Medications Medication Instructions Recorded Confirmed Type aspirin 81 mg PO DAILY 09/20/18 09/20/18 History metoprolol succinate [Toprol XL] 50 mg PO DAILY 09/20/18 09/20/18 History nitroglycerin [Nitrostat] 0.4 mg SUBLINGUAL DAILY 09/20/18 09/20/18 History tamsulosin 0.4 mg PO DAILY 09/20/18 09/20/18 History tiotropium-olodaterol [Stiolto 1 puff INHALATION DAILY 09/20/18 09/20/18 History Respimat] Patient History Medical History Coronary artery disease (Chronic) Surgical History History of coronary artery stent placement Family History Other Family history non-contributory Social History Preferred Language: Welsh marital status: Current Living Situation: Spouse current occupational status: retired Feels Safe at Home: Yes Review of Systems Review of Systems: All systems reviewed & are unremarkable except as noted in HPI & below Physical Exam Physical Exam: Constitutional: Alert, cooperative and in no distress. HEENT: Unremarkable Neck: No jugular venous distention, carotid pulses are normal and equal bilaterally without bruits. Pulmonary: Clear to auscultation bilaterally. Cardiac: Regular rhythm with a grade 3/6 crescendo decrescendo murmur at the base, no gallop or rub. Abdomen: Soft, nontender with normal bowel sounds. Extremities: No edema. Distal pulses intact. Neurologic: No focal findings. Gait is steady. Skin: No rash, ecchymoses or petechiae. Results & Data Vital Signs (Past 12 Hours) Vital Signs Temp Pulse Pulse Resp BP BP Pulse Ox 09/20/18 12:06 36.8 C 51 L 18 177/87 H 96 09/20/18 10:57 50 L 16 149/87 H 95 09/20/18 10:02 53 L 16 112/90 95 09/20/18 09:04 36.8 C 56 L 18 174/88 H 98 Diagnostic Findings His electrocardiogram on arrival shows sinus bradycardia at 50 bpm with LVH and some ST-T abnormalities which could be from LVH or possibly ischemic but there is no consistent ST depression and there is no ST elevation. (1) Chest pain Chest pain type: unspecified Qualified Code(s): R07.9 - Chest pain, unspecified
[2018-09-20] MEDS: Heparin Adult STANDARD Wt-Based Dextrose 5% 25,000 units/500 mL IV SCH (12:32)
[2018-09-20] MEDS: METOPROLOL SUCC 50MG EXT REL TAB PO SCH (13:21)
[2018-09-20] MEDS ORDERED: PERFLUTREN LIPID MICROSPHERE (DEFINITY) IV ONE (13:44)
[2018-09-20 17:58] LABS: Partial Thromboplastin Ratio 3.9
[2018-09-20 18:03] LABS: Partial Thromboplastin Time 105.6 Seconds (21.0-31.0)
[2018-09-21 00:21] LABS: Partial Thromboplastin Ratio 2.1
[2018-09-21 00:32] LABS: Partial Thromboplastin Time 57.8 Seconds (21.0-31.0)
[2018-09-21] MEDS: Heparin Adult STANDARD Wt-Based Dextrose 5% 25,000 units/500 mL IV SCH (06:40)
[2018-09-21 06:41] LABS: Hematocrit (blood only) 41.2 % (42-52); Hemoglobin 13.9 g/dL (14.0-18.0); Mean Corpuscular Hgb Conc 33.7 g/dL (32-36); Mean Corpuscular Volume 95.8 fL (80-100); Mean Platelet Volume 11.2 fL (7.4-10.4); Platelet Count 150 K/uL (130-400); RDW Coefficient of Variation 14.4 % (11.5-14.5); RDW Standard Deviation 50.5 fL (36.4-46.3); White Blood Count 6.15 K/uL (4.8-10.8)
[2018-09-21 07:02] LABS: Partial Thromboplastin Ratio 2.3
[2018-09-21 07:07] LABS: Partial Thromboplastin Time 61.2 Seconds (21.0-31.0)
[2018-09-21 07:16] LABS: BUN Creatinine Ratio 14.9 (10-20); Calcium 9.2 mg/dl (8.5-10.1); Creatinine Clr Calc Pharmacy 50.2 ml/min; Est GFR (African American) 55.4; Est GFR (Non-African American) 47.8
[2018-09-21] MEDS: METOPROLOL SUCC 50MG EXT REL TAB PO SCH ×3 (07:20→09:26)
[2018-09-21] MEDS: CLOPIDOGREL BISULFATE 75 MG TAB PO SCH (08:31)
[2018-09-21] MEDS: TAMSULOSIN HCL 0.4 MG CAP PO SCH (08:32)
[2018-09-21] MEDS: ASPIRIN 81 MG ECTAB PO SCH (08:32)
[2018-09-21] MEDS ORDERED: NITROGLYCERIN SL 0.4 MG/TAB TAB SL SCH (09:00)
[2018-09-21] MEDS ORDERED: NITROGLYCERIN SL 0.4 MG/TAB TAB SL PRN (09:06)
--- NOTE | 2018-09-21 09:14 | Cardiology Progress Note ---
Date of Service September 21, 2018 Assessment & Plan (1) Chest pain: He presents with several episodes of chest discomfort this morning which are highly suspicious for angina, they occurred at rest which would be consistent with unstable angina. He had not had these symptoms since stent placement, he did take a nitroglycerin which he has never used before. Ultimately the discomfort resolved before he came into the emergency room but was present for perhaps several hours including when he first got up at 430 or 5 in the morning and initially had the discomfort. Additionally he had some atypical discomfort the evening before, it does not sound anginal but it is unusual for him to have that discomfort. His troponin has climbed consistent with a non-ST segment elevation myocardial infarction. I believe the discomfort was due to myocardial ischemia. (2) Elevated troponin: His troponin was elevated to 2.8 on arrival yesterday, that has climbed to 11.3 late last evening. He does not have an ST segment elevation myocardial infarction, so this could be demand ischemia but seems more consistent with a non-ST segment elevation myocardial infarction. Since his pain was relieved following the nitroglycerin he was admitted for conservative management for the weekend, including increase in his platelet inhibitors and addition of an anticoagulant. He will need catheterization for coronary evaluation and probable intervention. (3) Coronary artery disease: He has known coronary artery disease and stent placement but has not had problems with angina and has not had exertional symptoms until the day before admission. Most likely he has progression of disease. He has been maintained on aspirin, he lists intolerances to most of the statin agents so he is not on a statin. As long as he does not have recurrent symptoms to suggest an unstable pattern we will plan on catheterization on Saturday. I discussed this with him and he is agreeable. (4) Bradycardia: He has sinus bradycardia with a heart rate which is often in the 40s. He is on metoprolol succinate, 75 mg daily, and has been on 50 mg at home for some time I believe. I am going to reduce it back to 50 mg even though may be beneficial for his angina, we can give him additional doses if needed for recurrent symptoms but bradycardia may not be beneficial either to that extent. Subjective He is feeling well this morning, he has had no further chest discomfort since admission. He is bradycardic but has no complaints of lightheadedness or dizziness. No shortness of breath. Physical Exam Physical Exam: Constitutional: Alert, cooperative and in no distress. Pulmonary: Clear to auscultation bilaterally. Cardiac: Regular rhythm with a grade 2/6 crescendo decrescendo murmur, no gallop or rub. Abdomen: Soft, nontender with normal bowel sounds. Extremities: No edema. Skin: No rash, ecchymoses or petechiae. Results & Data Vital Signs (Past 12 Hours) Vital Signs Temp Pulse Pulse Resp BP Pulse Ox 09/21/18 06:50 36.8 C 52 L 18 162/69 H 96 09/21/18 03:20 37 C 54 L 16 177/82 H 96 09/21/18 00:30 53 L 09/20/18 23:19 37.1 C 52 L 19 179/94 H 92 Diagnostic Findings Telemetry: Sinus rhythm and sinus bradycardia, heart rates in the 40s at times. No tachycardia. (1) Chest pain Chest pain type: unspecified Qualified Code(s): R07.9 - Chest pain, unspecified
--- NOTE | 2018-09-21 10:57 | Hospitalist Progress Note ---
Date of Service September 21, 2018 Assessment & Plan (1) NSTEMI (non-ST elevated myocardial infarction): Consulted cardiology - will have cath Saturday, npo after mn Patient currently without chest pain since nitro this morning EKG with infero lateral ST changes on admission Patient unable to tolerate statins due to myalgias, Troponin 2.6 on presentation to ED, peaked at 11 and trended down Continue heparin gtt, plavix, asa, metoprolol (2) Coronary artery disease: History DUC to circ treatment as above (3) Hypertension: continue metoprolol (4) COPD (chronic obstructive pulmonary disease): Continue tiotropium - olodaterol inhaler (5) Sleep apnea: may use own CPAP (6) CKD (chronic kidney disease), stage III: Baseline creatinine 1.4 - at baseline Renally dose medications where possible (7) DVT prophylaxis: heparin gtt, SCDs Subjective Mr. Guzman did well over the night, no chest pain. He has no complaints this morning Review of Systems Review of Systems: All systems reviewed & are unremarkable except as noted in HPI & below Physical Exam Physical Exam: General: no distress Eyes: normal inspection, PERLL Respiratory: chest non tender, clear to auscultation, normal breath sounds, no respiratory distress, no accessory muscle use Cardiac: regular rate and rhythm, no rub or gallop, systolic murmur, no edema, no jvd GI/: active bowel sounds, no abd pain or tenderness, soft, non distended Extremities: normal range of motion, normal strength, non tender Neuro/Psych: alert and oriented x 3, normal mood and affect Skin: normal color, dry Results & Data Vital Signs (Past 12 Hours) Vital Signs Temp Pulse Pulse Resp BP Pulse Ox 09/21/18 06:50 36.8 C 52 L 18 162/69 H 96 09/21/18 03:20 37 C 54 L 16 177/82 H 96 09/21/18 00:30 53 L 09/20/18 23:19 37.1 C 52 L 19 179/94 H 92
[2018-09-21] MEDS ORDERED: HydrALAZINE HCL 20 MG/ML VIAL IV STA (21:58)
[2018-09-22] MEDS: Heparin Adult STANDARD Wt-Based Dextrose 5% 25,000 units/500 mL IV SCH (01:43)
[2018-09-22 05:34] LABS: Hematocrit (blood only) 44.5 % (42-52); Hemoglobin 15.2 g/dL (14.0-18.0); Mean Corpuscular Hgb Conc 34.2 g/dL (32-36); Mean Corpuscular Volume 95.1 fL (80-100); Platelet Count 166 K/uL (130-400); RDW Coefficient of Variation 14.2 % (11.5-14.5); RDW Standard Deviation 49.7 fL (36.4-46.3); Red Blood Count 4.68 M/uL (4.7-6.1)
[2018-09-22 05:57] LABS: Partial Thromboplastin Time 55.5 Seconds (21.0-31.0)
[2018-09-22 06:03] LABS: BUN Creatinine Ratio 13.8 (10-20); Calcium 9.1 mg/dl (8.5-10.1); Creatinine Clr Calc Pharmacy 43.5 ml/min; Est GFR (African American) 48.6; Est GFR (Non-African American) 41.9
[2018-09-22] MEDS: CLOPIDOGREL BISULFATE 75 MG TAB PO SCH (08:15)
[2018-09-22] MEDS: METOPROLOL SUCC 50MG EXT REL TAB PO SCH (08:15)
[2018-09-22] MEDS: TAMSULOSIN HCL 0.4 MG CAP PO SCH (08:15)
[2018-09-22] MEDS: ASPIRIN 81 MG ECTAB PO SCH (08:15)
[2018-09-22] MEDS ORDERED: NiCARDipine HCL INJ 2.5 MG/ML 10 ML AMP ONE (12:02)
[2018-09-22] MEDS ORDERED: fentaNYL citrate 100 MCG/2 ML VIAL ONE ×2 (12:02→14:38)
[2018-09-22] MEDS ORDERED: NITROGLYCERIN/D5W 100MCG/ML 20ML SYR ONE (12:02)
[2018-09-22] MEDS ORDERED: HEPARIN (PORCINE) 1000 UNIT/ML 10 ML (CATH LAB USE ONLY) ONE (12:02)
[2018-09-22] MEDS ORDERED: MIDAZOLAM HCL 1 MG/ML 2ML VIAL ONE ×3 (12:02→14:40)
[2018-09-22] MEDS ORDERED: ATROPINE SULFATE 0.1 MG/ML 10ML SYR IV ONE (14:08)
[2018-09-22] MEDS ORDERED: NOREPINEPHRINE BITARTRATE 1 MG/ML 4 ML VIAL (CATH LAB USE ONLY) ONE (14:13)
[2018-09-22] MEDS ORDERED: EPTIFIBATIDE 2 MG/ML 10 ML VIAL (CATH LAB USE ONLY) ONE (14:35)
[2018-09-22] MEDS ORDERED: ONDANSETRON INJ 2 MG/ML 2 ML VIAL ONE (14:45)
[2018-09-22] MEDS ORDERED: ADENOSINE IV SOLN 3 MG/ML 2 ML VIAL IV ONE (15:01)
[2018-09-22] MEDS ORDERED: EPTIFIBATIDE 0.75 MG/ML 75MG VIAL (CATH LAB USE ONLY) ONE (15:08)
[2018-09-22] MEDS ORDERED: CLOPIDOGREL BISULFATE 300 MG TAB ONE (15:14)
--- NOTE | 2018-09-22 15:27 | Cardiology Progress Note ---
Date of Service September 22, 2018 Assessment & Plan (1) NSTEMI (non-ST elevated myocardial infarction): 2. Chronic renal insufficiency 3. COPD Discussed cardiac catheterization with patient including risk, benefits, alternatives and patient willing to proceed. Plan to perform via right radial artery. Further recommendations pending study findings. Subjective Feeling well. No chest pain. Review of Systems Review of Systems: All systems reviewed & are unremarkable except as noted in HPI & below Physical Exam Physical Exam: General: Comfortable, no acute distress Eyes: Sclerae anicteric, extraocular movements intact HENT: Oropharynx clear mucous membranes moist Lungs: Clear to auscultation bilaterally, no rhonchi or wheezes Cardiac: Regular rate and rhythm, no murmurs, rubs or gallops. Vascular: 2+ radial Abdomen: Soft, nontender, nondistended, positive bowel sounds. Extremities: Well perfused, no peripheral edema Skin: No rashes or lesions. Neuro: Nonfocal Psych: Alert orient x3, normal affect and mood Results & Data Vital Signs (Past 12 Hours) Vital Signs Temp Pulse Resp BP BP Pulse Ox 09/22/18 11:49 36.7 C 62 16 176/90 H 96 09/22/18 07:01 37.1 C 62 18 133/80 95 09/22/18 03:43 36.9 C 69 18 122/83 96
--- NOTE | 2018-09-22 15:28 | Pre Anesthesia Assessment ---
Date of Service September 22, 2018 Pre Sedation Assessment Vital Signs Temp Pulse Resp BP BP Pulse Ox 09/22/18 11:49 36.7 C 62 16 176/90 H 96 09/22/18 07:01 37.1 C 62 18 133/80 95 09/22/18 03:43 36.9 C 69 18 122/83 96 09/21/18 23:04 36.8 C 63 18 183/91 H 95 09/21/18 21:50 60 211/101 H 09/21/18 19:07 36.9 C 58 L 18 198/89 H 93 09/21/18 16:14 169/91 H Cardiovascular RRR, no murmur, no edema Respiratory normal respiratory effort, lungs clear to auscultation Pre-Sedation Airway Assessment Smoking Status: Former smoker Hx Sleep Apnea: No Hx Difficult Intubation: No Short, Thick Neck: No Thyromental Distance: > or= 3.5 Finger Breadths Oral Cavity: + WNL Mallampati Class: III ASA: ASA3 NPO Status Date of Last Intake of Fluids: 09/21/18 Time of Last Intake of Fluids: 19:00 Date of Last Intake of Solid Food: 09/21/18 Time of Last Intake of Solid Foods: 19:00 Procedure Planning Contraindications for Sedation: none Current Medications Reviewed: Yes Notes The planned sedation has been discussed with the patient. Informed Consent was obtained. I have identified the patient, determined the appropriateness of sedation and have assessed the patient immediately prior to the procedure. All medicine(s) and interventions are by my order.
--- NOTE | 2018-09-22 15:28 | Post Anesthesia Assessment ---
Date of Service September 22, 2018 Post Sedation Assessment Vital Signs Temp Pulse Resp BP BP Pulse Ox 09/22/18 11:49 36.7 C 62 16 176/90 H 96 09/22/18 07:01 37.1 C 62 18 133/80 95 09/22/18 03:43 36.9 C 69 18 122/83 96 09/21/18 23:04 36.8 C 63 18 183/91 H 95 09/21/18 21:50 60 211/101 H 09/21/18 19:07 36.9 C 58 L 18 198/89 H 93 09/21/18 16:14 169/91 H Recovery Score Activity: Moves 4 extremities Respiration: Deep Breath/Cough Circulation: +/-20% PreAnes Value Consciousness: Fully Awake Oxygen Saturation: O2 needed for >90% Discharge Sedation Level of Care: Fast Track Phase II Post Sedation Plan On clinical assessment, the patient appears to have tolerated the sedation without complications. Patient is recovering as anticipated. Patient will continue to be monitored by nursing and may be discharged when sedation discharge criteria are met per below protocol. Upon Completions of procedure and additional 15 minutes continue every 5 minute vital signs and the P.A.R. score; then discharge to a Phase I or Fast Track to Phase II per the following guidelines: * Discharge Patient to appropriate Phase II area if PAR is 8 or greater or return to pre- procedure baseline. The post - procedure orders will be as directed. * If PAR score is less than 8 or not return to pre-procedure baseline then patient will follow Phase I monitoring till PAR is reached for Phase II. The Phase I may be done in procedure room or may call to secure a Phase I area. * If naloxone or flumazenil are used for reversal, hold in Phase I for continued monitoring from when last reversal dose was given for a minimum of 60 minutes or longer pending the nurse and/or physician discretion of patient condition before discharge to Phase II. Please call the Sedation Physician to re-evaluate and complete post-note for discharge to Phase II area. Do NOT discharge from procedure sedation or Phase 1 until post- sedation evaluation note is complete by procedure /sedation MD Sedation Discharge Instructions to be given to the patient at discharge to home.
[2018-09-22] MEDS ORDERED: EPTIFIBATIDE BOLUS/DRIP IV STA (15:47)
[2018-09-22] MEDS ORDERED: ONDANSETRON INJ 2 MG/ML 2 ML VIAL IV PRN (15:47)
--- NOTE | 2018-09-22 15:47 | Cardiac Catheterization ---
Cardiac Cath Procedure Full Procedure Date September 22, 2018 Pre-Procedure Diagnosis Pre-Procedure Diagnosis: Non STEMI AUC Score AUC Score: 8 Post-Procedure Diagnosis Post-Procedure Diagnosis: Severe CAD, Successful PCI and Normal Intracardiac Pressures Procedure(s) Performed Procedure(s) Performed: Coronary Angiography, Left Heart Cath, Drug Eluting Stent and IVUS Machinery Rigger Jak Richardson MD Statistical Geneticist(s) [place] Estimated Blood Loss Estimated Blood Loss: 10 Medication(s) Medication(s): Adenosine, Atropine, Clopidogrel, Fentanyl, Heparin, Integrilin, Lidocaine 1%, Nicardipine, Nitroglycerin, Norepinephrine and Versed Summary of Findings Indication: High risk NSTEMI Access: 6 Fr right radial artery Catheters: [place], AR-1 guide Findings: LM -Short, no significant disease LAD -moderate caliber, calcified, mild diffuse proximal disease, focal 90% earlymid segment disease, late mid to distal diffuse mild disease prior to vessel wraps around apex Circumflex -moderate caliber, proximal mid luminal irregularities OM 2 with diffuse 30% proximal disease RCA -large caliber vessel, 30% proximal disease ectatic mid segment disease before 40 to 50% stenosis, distal RCA with 99% stenosis, right PDA with 30% ostial stenosis LVEDP -2 -- PCI -- Antithrombotic therapy: Heparin, clopidogrel, Integrilin Procedure: RCA cannulated with AR-1 guide Cotton Machine Operator 50 wire passed across lesion into right PDA Distal RCA lesion predilated with 2.5 compliant balloon Post balloon inflation dissection noted and distal vessel extending to PDA Wire position lost and rewired into PDA with intraluminal position confirmed via injection through OTW balloon Initial distal RCA lesion stented with 3.5 x 22 mm Dion DUC Compromised flow, with resulting chest pain, ST elevations. Second DUC (2.5 x 26 [place]) placed from distal aspect of first stent into right PDA Flow still limited and concern for dissection extending into PDA. Third DUC placed from distal aspect of second stent into mid PDA (2.25 x 15 [place]). Persistent symptomatic EMMANUEL I flow Midsegment with hazy stenosis and stented with 4.0 x 18 mm Dion IVUS used to assess stent expansion and for residual dissection. No residual dissection in right PDA or proximal to mid segment stent. Distal RCA stent in the PDA underexpanded. PDA, distal RCA stents postdilated with 3.0 NC. IC vasodilators administered including nitro, nicardipine, adenosine. Also given IC Integrilin. Post procedure stents well expanded, EMMANUEL II-III flow in PDA and PLB. Residual ST elevations on monitoring but chest pain-free. Arterial Closure: TR band Summary: 1. Severe 2 vessel coronary artery disease -99% distal RCA stenosis 90% mid LAD 2. Normal intracardiac filling pressure 3. Successful PCI of distal RCA complicated by vessel dissection after initial angioplasty eventually requiring 4 overlapping drug-eluting stents (4.0 x 18, 3.5 x 22, 2.5 x 26, 2.25 x 15 [place]). 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 Cardiac Status Clinical evaluation leading to the procedure CAD Presenation: Non STEMI Anginal Classification: CCS IV Heart Failure: No Cardiogenic Shock within 24 Hours: No Cardiac Arrest within 24 Hours: No Imaging Studies Past 6 Months: Yes Stress Studies Past 6 Months: No Diagnostic Physicians Name: Jak Richardson MD Status: Elective Closure Device Percutaneous Entry Location: Radial Closure Device: Radial Band Recommendations: PCI without planned CABG PCI Indication: PCI for high risk Non-ELIZABETH Lesion Segment Name: distal RCA Culprit Artery: Yes Stenosis Prior to Rx (%): 99 Chronic Total Occlusion: No IVUS: No FFR: No Pre-Procedure EMMANUEL Flow: 3 Previously Treated Lesion: No Lesion Complexity: Non-High/Non-C Lesion Length (mm): 18 Thrombus Present: Yes Bifurcation Lesion: No Guidewire Across Lesion: Stenosis Post-Procedure (%): 0 Post-Procedure EMMANUEL Flow: 3 Devices(s) Deployed: Yes Yes Intraprocedure Events Significant Disection: No Perforation: No
--- NOTE | 2018-09-22 15:58 | Hospitalist Progress Note ---
Date of Service September 22, 2018 Assessment & Plan (1) NSTEMI (non-ST elevated myocardial infarction): Consulted cardiology - cardiac cath findings: 1. Severe 2 vessel coronary artery disease -99% distal RCA stenosis 90% mid LAD 2. Normal intracardiac filling pressure 3. Successful PCI of distal RCA complicated by vessel dissection after initial angioplasty eventually requiring 4 overlapping drug-eluting stents (4.0 x 18, 3.5 x 22, 2.5 x 26, 2.25 x 15 [place]). 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 Continue Integrilin for 3 hours Continue dual-antiplatelet therapy for at least one year Continue statin, and ASCVD risk factor modification Plan for staged PCI of mid LAD likely as an outpatient next week Troponin 2.6 on presentation to ED, peaked at 11 and trended down (2) Coronary artery disease: History DUC to circ treatment as above (3) Hypertension: continue metoprolol (4) COPD (chronic obstructive pulmonary disease): Continue tiotropium - olodaterol inhaler (5) Sleep apnea: may use own CPAP (6) CKD (chronic kidney disease), stage III: Baseline creatinine 1.4 - at baseline Renally dose medications where possible (7) DVT prophylaxis: , SCDs Spent 35 minutes in management, this included chart review Subjective 78 yo male reports feeling better. He has no complaints. He denies any feeling of palpatations, nausea, vomiting, chest pain. Patient reports that he had cardiac cath and is just tired. Review of Systems Review of Systems: All systems reviewed & are unremarkable except as noted in HPI & below Physical Exam Physical Exam: General: no distress Eyes: normal inspection, PERLL Respiratory: chest non tender, clear to auscultation, normal breath sounds, no respiratory distress, no accessory muscle use Cardiac: regular rate and rhythm, no rub or gallop, systolic murmur, no edema, no jvd GI/: active bowel sounds, no abd pain or tenderness, soft, non distended Extremities: normal range of motion, normal strength, non tender Neuro/Psych: alert and oriented x 3, normal mood and affect Skin: normal color, dry Results & Data Vital Signs (Past 12 Hours) Vital Signs Temp Pulse Resp BP Pulse Ox 09/22/18 11:49 36.7 C 62 16 176/90 H 96 09/22/18 07:01 37.1 C 62 18 133/80 95
[2018-09-22] MEDS ORDERED: SODIUM CHLORIDE 0.9% 1000ML 1,000 ML IV SCH (16:00)
[2018-09-22] MEDS ORDERED: EPTIFIBATIDE 75 MG/100 ML VIAL IV SCH (16:15)
[2018-09-22] MEDS ORDERED: SODIUM CHLORIDE 0.65% NA SOLN 45 ML (OCEAN) PRN (20:19)
[2018-09-23 06:05] LABS: Hematocrit (blood only) 39.4 % (42-52); Hemoglobin 13.8 g/dL (14.0-18.0); Mean Corpuscular Volume 94.3 fL (80-100); Mean Platelet Volume 10.8 fL (7.4-10.4); Platelet Count 165 K/uL (130-400); RDW Coefficient of Variation 14.3 % (11.5-14.5); Red Blood Count 4.18 M/uL (4.7-6.1); White Blood Count 9.31 K/uL (4.8-10.8)
[2018-09-23 06:26] LABS: BUN Creatinine Ratio 17.3 (10-20); Calcium 8.5 mg/dl (8.5-10.1); Creatinine Clr Calc Pharmacy 47.1 ml/min; Est GFR (African American) 52.6; Est GFR (Non-African American) 45.4; Potassium 3.9 mmol/L (3.5-5.1)
[2018-09-23] MEDS: CLOPIDOGREL BISULFATE 75 MG TAB PO SCH (08:11)
[2018-09-23] MEDS: METOPROLOL SUCC 50MG EXT REL TAB PO SCH (08:11)
[2018-09-23] MEDS: TAMSULOSIN HCL 0.4 MG CAP PO SCH (08:11)
[2018-09-23] MEDS: ASPIRIN 81 MG ECTAB PO SCH (08:12)
--- NOTE | 2018-09-23 09:00 | Cardiology Progress Note ---
Date of Service September 23, 2018 Assessment & Plan (1) NSTEMI (non-ST elevated myocardial infarction): 2. Chronic renal insufficiency 3. COPD 4. NSVT Patient post procedure day 1 post PCI to RCA complicated by coronary dissection/slow reflow requiring 4 DUC. He is chest pain free today and feeling well walking halls. NSVT on monitor this morning. BP above goal. Renal function stable With new NSVT this morning would continue to watch overnight and increase beta- christelle. If continued NSVT would plan to intervene on LAD tomorrow. If electrically stable than could go home tomorrow and schedule staged PCI of LAD next week. -- Continue DAPT with ASA/Clopidogrel -- Increase toprol to 100mg daily -- start losartan 25mg daily -- discuss PCSK9 inhibitor as an outpatient. ADDENDUM: Electrically stable during day. No recurrent chest pain. Discussed with patient and family and they would like to proceed with staged PCI of LAD tomorrow assuming renal funciton remains stable. Please keep patient NPO past midnight. Subjective Up walking halls this morning. Some shortness of breath after finishing walking. No chest pain. Tele reviewed -- NSVT 8-10 beats this morning. Review of Systems Review of Systems: All systems reviewed & are unremarkable except as noted in HPI & below Physical Exam Eyes: PERRL, conjunctivae normal, anicteric sclerae ENMT: Mallampati Class: III Respiratory: normal respiratory effort, lungs clear to auscultation Cardiovascular: RRR, no murmur, no edema right radial artery - no hematoma, ecchymosis. intact pulses Skin: no rashes, warm and dry Neurologic: no focal motor deficits Psychiatric: A+Ox3, euthymic affect Results & Data Vital Signs (Past 12 Hours) Vital Signs Temp Pulse Pulse Pulse Resp BP Pulse Ox 09/23/18 06:57 37.0 C 72 16 155/93 H 94 09/23/18 04:31 36.6 C 69 21 152/92 H 93 09/23/18 02:10 63 09/22/18 23:18 36.8 C 71 17 160/83 H 92
[2018-09-23] MEDS ORDERED: METOPROLOL SUCC 50MG EXT REL TAB PO ONE (09:04)
[2018-09-23] MEDS: LOSARTAN POTASSIUM 25 MG TAB PO SCH (11:06)
--- NOTE | 2018-09-23 21:33 | Hospitalist Progress Note ---
Date of Service September 23, 2018 Assessment & Plan (1) NSTEMI (non-ST elevated myocardial infarction): Consulted cardiology - cardiac cath findings: 1. Severe 2 vessel coronary artery disease -99% distal RCA stenosis 90% mid LAD 2. Normal intracardiac filling pressure 3. Successful PCI of distal RCA complicated by vessel dissection after initial angioplasty eventually requiring 4 overlapping drug-eluting stents (4.0 x 18, 3.5 x 22, 2.5 x 26, 2.25 x 15 [place]). Recommendations: To PCU for continued monitoring Continue dual-antiplatelet therapy for at least one year Continue statin, and ASCVD risk factor modification Plan for staged PCI of mid LAD likely in AM if patient continues to have NSVT. Will continue to monitor. Troponin 2.6 on presentation to ED, peaked at 11 and trended down (2) Coronary artery disease: History DUC to circ treatment as above (3) Hypertension: continue metoprolol (4) COPD (chronic obstructive pulmonary disease): Continue tiotropium - olodaterol inhaler (5) Sleep apnea: may use own CPAP (6) CKD (chronic kidney disease), stage III: Baseline creatinine 1.4 - at baseline Renally dose medications where possible (7) DVT prophylaxis: , SCDs Spent 25 minutes in management, this included chart review Subjective Patient reports feeling well. PATIENT HAS NO NEW COMPLAINTS. Overnight, patient appeared to have episodes of NSVT. Patient currently asymptomatic. Review of Systems Review of Systems: All systems reviewed & are unremarkable except as noted in HPI & below Physical Exam Physical Exam: General: no distress Eyes: normal inspection, PERLL Respiratory: chest non tender, clear to auscultation, normal breath sounds, no respiratory distress, no accessory muscle use Cardiac: regular rate and rhythm, no rub or gallop, systolic murmur, no edema, no jvd GI/: active bowel sounds, no abd pain or tenderness, soft, non distended Extremities: normal range of motion, normal strength, non tender Neuro/Psych: alert and oriented x 3, normal mood and affect Skin: normal color, dry Results & Data Vital Signs (Past 12 Hours) Vital Signs Temp Pulse Resp BP Pulse Ox 09/23/18 19:28 36.7 C 74 20 152/87 H 95 09/23/18 15:20 36.7 C 73 20 164/94 H 94 09/23/18 10:38 36.9 C 70 19 154/86 H 93
[2018-09-24 06:06] LABS: Hematocrit (blood only) 40.7 % (42-52); Hemoglobin 13.8 g/dL (14.0-18.0); Mean Corpuscular Hgb Conc 33.9 g/dL (32-36); Mean Corpuscular Volume 95.8 fL (80-100); Mean Platelet Volume 11.1 fL (7.4-10.4); Platelet Count 158 K/uL (130-400); RDW Coefficient of Variation 14.4 % (11.5-14.5); RDW Standard Deviation 51.1 fL (36.4-46.3); Red Blood Count 4.25 M/uL (4.7-6.1); White Blood Count 9.38 K/uL (4.8-10.8)
[2018-09-24 06:44] LABS: Calcium 8.7 mg/dl (8.5-10.1); Creatinine Clr Calc Pharmacy 44.4 ml/min; Est GFR (African American) 49.4; Est GFR (Non-African American) 42.6
[2018-09-24] MEDS: LOSARTAN POTASSIUM 25 MG TAB PO SCH (07:43)
[2018-09-24] MEDS: ASPIRIN 81 MG ECTAB PO SCH (07:44)
[2018-09-24] MEDS: TAMSULOSIN HCL 0.4 MG CAP PO SCH (07:44)
[2018-09-24] MEDS: CLOPIDOGREL BISULFATE 75 MG TAB PO SCH (07:44)
[2018-09-24] MEDS: METOPROLOL SUCC 50MG EXT REL TAB PO SCH (07:44)
--- NOTE | 2018-09-24 10:40 | Cardiology Progress Note ---
Date of Service September 24, 2018 Assessment & Plan (1) NSTEMI (non-ST elevated myocardial infarction): 2. Chronic renal insufficiency 3. COPD 4. NSVT Patient post procedure day 2 following PCI to RCA complicated by coronary dissection/slow reflow requiring 4 DUC. Feeling well today. No recurrent chest pain. Electrically stable. -- plan for staged PCI of LAD later today. -- continue DAPT with ASA/Clopidogrel -- continue losartan, toprol -- discuss PCSK9 inhibitor as an outpatient. Subjective Feeling well. No chest pain overnight. Slept well. Telemetry unremarkable. Review of Systems Review of Systems: All systems reviewed & are unremarkable except as noted in HPI & below Physical Exam Constitutional: WD/WN, vitals as above Eyes: PERRL, conjunctivae normal, anicteric sclerae ENMT: Mallampati Class: III Respiratory: normal respiratory effort, lungs clear to auscultation Cardiovascular: RRR, no murmur, no edema right radial artery - no hematoma. pulse intact Gastrointestinal (Abdomen): normal bowel sounds, soft, nontender, no hepatosplenomegaly Skin: no rashes, warm and dry Neurologic: no focal motor deficits Psychiatric: A+Ox3, euthymic affect Results & Data Vital Signs (Past 12 Hours) Vital Signs Temp Pulse Resp BP BP Pulse Ox 09/24/18 06:56 37.2 C 67 16 149/85 H 94 09/24/18 03:32 37.4 C 68 16 130/82 93 09/23/18 23:15 36.7 C 74 18 133/68 95
[2018-09-24] MEDS ORDERED: MIDAZOLAM HCL 1 MG/ML 2ML VIAL ONE (11:51)
[2018-09-24] MEDS ORDERED: HEPARIN (PORCINE) 1000 UNIT/ML 10 ML (CATH LAB USE ONLY) ONE (11:52)
[2018-09-24] MEDS ORDERED: fentaNYL citrate 100 MCG/2 ML VIAL ONE (11:52)
[2018-09-24] MEDS ORDERED: NITROGLYCERIN/D5W 100MCG/ML 20ML SYR ONE (11:52)
[2018-09-24] MEDS ORDERED: NiCARDipine HCL INJ 2.5 MG/ML 10 ML AMP ONE (11:52)
--- NOTE | 2018-09-24 13:05 | Pre Anesthesia Assessment ---
Date of Service September 24, 2018 Pre Sedation Assessment Vital Signs Temp Pulse Resp BP BP Pulse Ox 09/24/18 10:42 37.2 C 71 20 152/84 H 94 09/24/18 06:56 37.2 C 67 16 149/85 H 94 09/24/18 03:32 37.4 C 68 16 130/82 93 09/23/18 23:15 36.7 C 74 18 133/68 95 09/23/18 19:28 36.7 C 74 20 152/87 H 95 09/23/18 15:20 36.7 C 73 20 164/94 H 94 Cardiovascular RRR, no murmur, no edema Respiratory normal respiratory effort, lungs clear to auscultation no vesicular breath sounds Pre-Sedation Airway Assessment Smoking Status: Former smoker Hx Sleep Apnea: No Hx Difficult Intubation: No Short, Thick Neck: No Thyromental Distance: > or= 3.5 Finger Breadths Oral Cavity: + WNL Mallampati Class: III ASA: ASA3 NPO Status Date of Last Intake of Fluids: 09/21/18 Time of Last Intake of Fluids: 19:00 Date of Last Intake of Solid Food: 09/21/18 Time of Last Intake of Solid Foods: 19:00 Procedure Planning Contraindications for Sedation: none Current Medications Reviewed: Yes Notes The planned sedation has been discussed with the patient. Informed Consent was obtained. I have identified the patient, determined the appropriateness of sedation and have assessed the patient immediately prior to the procedure. All medicine(s) and interventions are by my order.
--- NOTE | 2018-09-24 13:05 | Post Anesthesia Assessment ---
Date of Service September 24, 2018 Post Sedation Assessment Vital Signs Temp Pulse Resp BP BP Pulse Ox 09/24/18 10:42 37.2 C 71 20 152/84 H 94 09/24/18 06:56 37.2 C 67 16 149/85 H 94 09/24/18 03:32 37.4 C 68 16 130/82 93 09/23/18 23:15 36.7 C 74 18 133/68 95 09/23/18 19:28 36.7 C 74 20 152/87 H 95 09/23/18 15:20 36.7 C 73 20 164/94 H 94 Recovery Score Activity: Moves 4 extremities Respiration: Deep Breath/Cough Circulation: +/-20% PreAnes Value Consciousness: Fully Awake Oxygen Saturation: O2 needed for >90% Post Sedation Plan On clinical assessment, the patient appears to have tolerated the sedation without complications. Patient is recovering as anticipated. Patient will continue to be monitored by nursing and may be discharged when sedation discharge criteria are met per below protocol. Upon Completions of procedure and additional 15 minutes continue every 5 minute vital signs and the P.A.R. score; then discharge to a Phase I or Fast Track to Phase II per the following guidelines: * Discharge Patient to appropriate Phase II area if PAR is 8 or greater or return to pre- procedure baseline. The post - procedure orders will be as directed. * If PAR score is less than 8 or not return to pre-procedure baseline then patient will follow Phase I monitoring till PAR is reached for Phase II. The Phase I may be done in procedure room or may call to secure a Phase I area. * If naloxone or flumazenil are used for reversal, hold in Phase I for continued monitoring from when last reversal dose was given for a minimum of 60 minutes or longer pending the nurse and/or physician discretion of patient condition before discharge to Phase II. Please call the Sedation Physician to re-evaluate and complete post-note for discharge to Phase II area. Do NOT discharge from procedure sedation or Phase 1 until post- sedation evaluation note is complete by procedure /sedation MD Sedation Discharge Instructions to be given to the patient at discharge to home.
--- NOTE | 2018-09-24 13:07 | Cardiac Catheterization ---
Cardiac Cath Procedure Full Procedure Date September 24, 2018 Pre-Procedure Diagnosis Pre-Procedure Diagnosis: Non STEMI AUC Score AUC Score: 7 Post-Procedure Diagnosis Post-Procedure Diagnosis: Severe CAD and Successful PCI Procedure(s) Performed Procedure(s) Performed: Coronary Angiography and Drug Eluting Stent Scrap Iron Loader Jak Richardson MD Hanging Flags Decorator(s) Chandana Estimated Blood Loss Estimated Blood Loss: 10 Medication(s) Medication(s): Atropine, Clopidogrel, Fentanyl, Heparin, Lidocaine 1%, Nicardipine, Nitroglycerin and Versed Summary of Findings Indication: Staged PCI of LAD Access: 6 Fr right radial artery Catheters: EBU 3.5 guide Findings: Full details of patient's diagnostic angiography please see cath report dictated from five 10/2018. Briefly patient found to have severe two-vessel disease and previously underwent PCI with 4 drug-eluting stents to his proximal to dista l/right PDA. Patient brought back today for staged PCI of LAD 90% stenosis. -- PCI -- Antithrombotic therapy: Heparin, clopidogrel Procedure: Left main cannulated with EBU 3.75 guide BMW wire passed into distal LAD Mid LAD dilated with 2.5 compliant balloon Mid LAD stented with 3.5 x 18 mm [place] drug-eluting stent Stent postdilated with 3.5 NC balloon IC vasodilators administered for vasospasm Post procedure stents well expanded, EMMANUEL-3 flow and no apparent coronary complications Arterial Closure: TR band Summary: 1. Successful PCI of mid LAD with single drug-eluting stent (3.5 x 18 mm [place]). Recommendations: To PCU for continued monitoring Continue doing to platelet therapy for at least one year Continue statin, and ASCVD risk factor modification Hemodynamics Rest Ao:: 106/62/82 Final Ao: 101/59/77 LV: -- Recommendations Recommendations: PCI without planned CABG Specimens Specimens: None Radiation Exposure (mGy) 1758 Contrast (mls) 125 Fluids (cc crystalloids) Fluids (cc crystalloids): 90 Drains Drains: None Anesthesia Moderate Procedural Complication(s) None Disposition PCU ACC Data: Transitional Nurse Cardiac Status Clinical evaluation leading to the procedure CAD Presenation: Non STEMI Anginal Classification: CCS IV Heart Failure: No Cardiogenic Shock within 24 Hours: No Cardiac Arrest within 24 Hours: No Imaging Studies Past 6 Months: Yes Stress Studies Past 6 Months: No Diagnostic Physicians Name: Jak Richardson MD Status: Elective Closure Device Percutaneous Entry Location: Radial Closure Device: Radial Band Recommendations: PCI without planned CABG PCI Indication: Staged PCI Lesion Segment Name: mid LAD Culprit Artery: No Stenosis Prior to Rx (%): 90 Chronic Total Occlusion: No IVUS: No FFR: No Pre-Procedure EMMANUEL Flow: 3 Previously Treated Lesion: No Lesion Complexity: Non-High/Non-C Lesion Length (mm): 12 Thrombus Present: No Bifurcation Lesion: No Guidewire Across Lesion: Stenosis Post-Procedure (%): 0 Post-Procedure EMMANUEL Flow: 3 Devices(s) Deployed: Yes Yes Intraprocedure Events Significant Disection: No Perforation: No
[2018-09-24] MEDS ORDERED: SODIUM CHLORIDE 0.9% 1000ML 1,000 ML IV SCH (13:30)
--- NOTE | 2018-09-24 23:09 | Hospitalist Progress Note ---
Date of Service September 24, 2018 Assessment & Plan (1) NSTEMI (non-ST elevated myocardial infarction): Consulted cardiology - cardiac cath findings: 1. Severe 2 vessel coronary artery disease -99% distal RCA stenosis 90% mid LAD 2. Normal intracardiac filling pressure 3. Successful PCI of distal RCA complicated by vessel dissection after initial angioplasty eventually requiring 4 overlapping drug-eluting stents (4.0 x 18, 3.5 x 22, 2.5 x 26, 2.25 x 15 [place]). 4. staged PCI of LAD today afternoon. Recommendations:3 To PCU for continued monitoring Continue doing to platelet therapy for at least one year Continue statin, and ASCVD risk factor modification Troponin 2.6 on presentation to ED, peaked at 11 and trended down (2) Coronary artery disease: History DUC to circ treatment as above (3) Hypertension: continue metoprolol (4) COPD (chronic obstructive pulmonary disease): Continue tiotropium - olodaterol inhaler (5) Sleep apnea: may use own CPAP (6) CKD (chronic kidney disease), stage III: Baseline creatinine 1.4 - at baseline Renally dose medications where possible (7) DVT prophylaxis: , SCDs Spent 25 minutes in management Subjective 78 yo male reports feeling well. He had the second cath done today which was successful. He has no new complaints at this moment and is curious about being discharged. Review of Systems Review of Systems: All systems reviewed & are unremarkable except as noted in HPI & below Physical Exam Physical Exam: General: no distress Eyes: normal inspection, PERLL Respiratory: chest non tender, clear to auscultation, normal breath sounds, no respiratory distress, no accessory muscle use Cardiac: regular rate and rhythm, no rub or gallop, systolic murmur, no edema, no jvd GI/: active bowel sounds, no abd pain or tenderness, soft, non distended Extremities: normal range of motion, normal strength, non tender Neuro/Psych: alert and oriented x 3, normal mood and affect Skin: normal color, dry Results & Data Vital Signs (Past 12 Hours) Vital Signs Temp Pulse Resp BP Pulse Ox 09/24/18 19:01 36.8 C 74 18 143/78 H 94 09/24/18 16:09 36.6 C 68 16 131/77 95 09/24/18 13:24 36.6 C 72 16 134/67 94
[2018-09-25] MEDS: CLOPIDOGREL BISULFATE 75 MG TAB PO SCH (08:13)
[2018-09-25] MEDS: METOPROLOL SUCC 50MG EXT REL TAB PO SCH (08:13)
[2018-09-25] MEDS: LOSARTAN POTASSIUM 25 MG TAB PO SCH (08:14)
[2018-09-25] MEDS: ASPIRIN 81 MG ECTAB PO SCH (08:14)
[2018-09-25] MEDS: TAMSULOSIN HCL 0.4 MG CAP PO SCH (08:14)
--- NOTE | 2018-09-25 08:30 | Cardiology Progress Note ---
Date of Service September 25, 2018 Assessment & Plan (1) NSTEMI (non-ST elevated myocardial infarction): 2. Chronic renal insufficiency 3. COPD 4. NSVT 5. Multivessel coronary disease Patient doing well following staged PCI of LAD yesterday afternoon. He is chest pain-free, hemodynamically and electrically stable. No apparent accessory complications. From a cardiac standpoint okay for discharge today. Home on following cardiac meds -- Clopidogrel 75 mg daily -- Aspirin 81 mg daily -- Toprol XL 100mg daily -- Losartan 25 mg daily Follow-up as scheduled with Dr. Nazario. Discuss PCSK9 inhibitor, cardiac rehab as an outpatient. Subjective Feeling well. No chest pain overnight. Slept well. Telemetry unremarkable. Review of Systems Review of Systems: All systems reviewed & are unremarkable except as noted in HPI & below Physical Exam Constitutional: WD/WN, vitals as above Eyes: PERRL, conjunctivae normal, anicteric sclerae Respiratory: normal respiratory effort, lungs clear to auscultation Cardiovascular: RRR, no murmur, no edema Heart Sounds: no murmur Extremities: no edema Right radial artery access site with no ecchymosis, hematoma. Distal pulse and sensation intact. Gastrointestinal (Abdomen): normal bowel sounds, soft, nontender, no hepatosplenomegaly Psychiatric: A+Ox3, euthymic affect Results & Data Vital Signs (Past 12 Hours) Vital Signs Temp Pulse Pulse Resp BP Pulse Ox 09/25/18 07:00 37.0 C 72 18 143/95 H 94 09/25/18 03:25 37.1 C 71 16 142/87 H 94 09/24/18 23:19 37.1 C 70 16 121/72 95
--- NOTE | 2018-10-02 09:38 | Discharge Summary ---
Date of Service September 25, 2018 Admission HPI Per Admitting Provider Mr. Guzman presents today for chest pain. Pain started yesterday with pressure under right armpit. This morning at 0700 he had extension of pain across chest to left shoulder and shoulder blades. Took a nitro at that time which relieved his pain and then he presented to the ED. He had associated sob, lightheadedness, denies diaphoresis or nausea. No chest pain or sob now. He has had increased cough since August with small amount of sputum but it really . 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 [employer] Famhx: Mother of old age, father had cancer Principal Diagnosis NSTEMI Discharge Exam General: no distress Eyes: normal inspection, PERLL Respiratory: chest non tender, clear to auscultation, normal breath sounds, no respiratory distress, no accessory muscle use Cardiac: regular rate and rhythm, no rub or gallop, systolic murmur, no edema, no jvd GI/: active bowel sounds, no abd pain or tenderness, soft, non distended Extremities: normal range of motion, normal strength, non tender Neuro/Psych: alert and oriented x 3, normal mood and affect Skin: normal color, dry Discharge Data Allergies Allergy/AdvReac Type Severity Reaction Status Date / Time iron Allergy Mild CHEST PAIN Verified 09/20/18 10:30 Penicillins Allergy Mild RASH Unverified 09/20/18 10:30 zinc Allergy Mild CHEST PAIN Verified 09/20/18 10:30 ezetimibe Allergy Unknown ACHE AND Verified 09/20/18 10:30 JOINT PAIN metoprolol Allergy Unknown AT HIGHER Verified 09/20/18 10:30 DOSAGE - MUSCLES ACHES irbesartan [From Avapro] Allergy Unknown Unverified 09/20/18 10:31 atorvastatin AdvReac Mild INTOLERANT Verified 09/20/18 10:30 simvastatin AdvReac Mild INTOLERANT Verified 09/20/18 10:30 Consultations 09/20/18 09:52 Consult Cardiology Stat ED Decision to Admit Stat 09/22/18 15:50 Consult Cardiac Rehabilitation Routine Procedures Performed Operation Date: 09/22/18 09:30 Actual Procedures p Cath, Left with Cors and Vent - Marcellus Richardson MD s Drug Eluting Stent SGl Vessel - Marcellus Richardson MD s IVUS Coronary Single Vessel - Marcellus Richardson MD s Cineradiography w/Routine Exam - Marcellus Richardson MD Operation Date: 09/24/18 11:00 Actual Procedures p Drug Eluting Stent SGl Vessel - Marcellus Richardson MD Ordered Studies 09/22/18 06:56 CL Cath Imgs for PACS use only Routine 09/22/18 15:53 CL IVUS Coronary Single Vessel Routine 09/24/18 07:25 CL Cath Imgs for PACS use only Stat Hospital Course (1) NSTEMI (non-ST elevated myocardial infarction): Consulted cardiology - cardiac cath findings: 1. Severe 2 vessel coronary artery disease -99% distal RCA stenosis 90% mid LAD 2. Normal intracardiac filling pressure 3. Successful PCI of distal RCA complicated by vessel dissection after initial angioplasty eventually requiring 4 overlapping drug-eluting stents (4.0 x 18, 3.5 x 22, 2.5 x 26, 2.25 x 15 [place]). 4. staged PCI of LAD today afternoon. Patient doing well following staged PCI of LAD yesterday afternoon. He is chest pain-free, hemodynamically and electrically stable. No apparent accessory complications. From a cardiac standpoint okay for discharge today. Home on following cardiac meds -- Clopidogrel 75 mg daily -- Aspirin 81 mg daily -- Toprol XL 100mg daily -- Losartan 25 mg daily Follow-up as scheduled with Dr. Nazario. Discuss PCSK9 inhibitor, cardiac rehab as an outpatient. Troponin 2.6 on presentation to ED, peaked at 11 and trended down (2) Coronary artery disease: History DUC to circ treatment as above (3) Hypertension: continue metoprolol (4) COPD (chronic obstructive pulmonary disease): Continue tiotropium - olodaterol inhaler (5) Sleep apnea: may use own CPAP (6) CKD (chronic kidney disease), stage III: Baseline creatinine 1.4 - at baseline Renally dose medications where possible (7) DVT prophylaxis: , SCDs Total Time Total Time Spent Total Time Spent (In Minutes): 32 Total Time Includes: Examination of the Patient, Discharge Planning and Medication Reconciliation Discharge Plan Discharge Items Patient Disposition: Home - Self-Care Reason For Visit: CHEST PAIN Discharge Diagnosis: Chest Pain Discharge Goals: Decrease discomfort Activity: Resume your previous activity Non-emergency contact: Primary Care Provider Call non-emergency contact if: you have any medication questions Follow-up/Referrals: Marcellus Howard MD [Primary Care Provider] - 10/07/18 3:00 pm (Please, follow up at Dr. Howard's office with his blacksmith assistant, Xin Vick PA-C, on SaturdayOctober 07 at 3:00 pm. *If you need to change this appointment, call the office at [phone]. ) Stephon Nazario Jr, MD, [facility] [Family Provider] - 10/06/18 9:45 am (Please, follow up at [facility] Cardiology Office with Dr. Nazario on SaturdayOctober 06 at 9:45 am. *If you need to change this appointment, call the office at [phone].) Diet: Heart Healthy Addtl Provider Instructions: Followup with PCP in 1-2 weeks. Followup with Cardio in 2-4 weeks. Prescriptions: New metoprolol succinate 50 mg Tablet Extended Release 24 Hr 100 mg PO QAM Qty: 60 RF: 0 clopidogrel 75 mg Tablet 75 mg PO QAM Qty: 30 RF: 0 losartan 25 mg Tablet 25 mg PO QAM Qty: 30 RF: 0 Continued tamsulosin 0.4 mg capsule 0.4 mg PO DAILY RF: 0 Stiolto Respimat 2.5-2.5 mcg/actuation mist 1 puff inhalation DAILY RF: 0 aspirin 81 mg Tablet,Delayed Release (Dr/Ec) 81 mg PO DAILY RF: 0 nitroglycerin [Nitrostat] 0.4 mg Tablet, Sublingual 0.4 mg sublingual DAILY RF: 0 Discontinued metoprolol succinate [Toprol XL] 50 mg tablet extended release 24 hr 50 mg PO DAILY RF: 0 Stand-Alone Forms: Call Back Authorization, [facility] Discharge Orders: Discharge Order (Routine); Ordered 09/25/18 Ordered By: Devendra Brandon Admission Data Admit Date/Time: 09/20/18 10:54 Attending Provider: Devendra Brandon Admit Provider: Willi Diaz Primary Care Provider: Marcellus Howard Other Providers: Konstantin Wynn ; Aniyah Durbin ; Marcellus Richardson Service: Telemetry Other Interventions: Discharge Summary Assessment (RN) Last Done: 09/25/18 11:21 DC Date/Time DO NOT enter until pt leaves facility: 09/25/18 12:20
== END 2018-09-25 12:20 | disposition home or self-care (01) | DRG 246 ==
LOC: ED 08:54 → SUATTDRO 10:54 → 2E 10:54
DX: I25.2 Old myocardial infarction; Z79.82 Long term (current) use of aspirin; G47.30 Sleep apnea, unspecified; R00.1 Bradycardia, unspecified; Z88.0 Allergy status to penicillin; I47.2 Ventricular tachycardia; J44.9 Chronic obstructive pulmonary disease, unspecified; N18.3 Chronic kidney disease, stage 3 (moderate); Z87.891 Personal history of nicotine dependence; I12.9 Hypertensive chronic kidney disease with stage 1 through stage 4 chronic kidney disease, or unspecified chronic kidney disease; I25.10 Atherosclerotic heart disease of native coronary artery without angina pectoris; Z88.8 Allergy status to other drugs, medicaments and biological substances; I21.4 Non-ST elevation (NSTEMI) myocardial infarction; Z95.5 Presence of coronary angioplasty implant and graft; Z79.899 Other long term (current) drug therapy; I25.42 Coronary artery dissection

== ENCOUNTER 2022-09-02 02:13 | Inpatient (IN) ==
[2022-09-02] MEDS ORDERED: ASPIRIN CHEW 324 MG PO STA (02:31)
[2022-09-02] MEDS ORDERED: NITROGLYCERIN 2% OINTMENT 30GM TUBE EXT STA (02:31)
[2022-09-02 02:55] LABS: Basophils # (auto) 0.03 K/uL (0-0.2); Basophils % (auto) 0.5 %; Eosinophils # (auto) 0.27 K/uL (0-0.50); Eosinophils % (auto) 4.3 %; Hematocrit (blood only) 44.6 % (42.0-52.0); Hemoglobin 14.7 g/dl (14.0-18.0); Immature Granulocytes # (auto) 0.02 K/uL (0.01-0.20); Immature Granulocytes % (auto) 0.3 %; Lymphocytes # (auto) 1.67 K/uL (1.2-3.4); Lymphocytes % (auto) 26.8 %; Mean Corpuscular Hemoglobin 32.5 pg (25.0-34.0); Mean Corpuscular Volume 98.5 fL (80.0-100.0); Mean Platelet Volume 10.9 fL (9.4-12.4); Neutrophils # (auto) 3.73 K/uL (1.40-6.50); Neutrophils % (auto) 60.1 %; Platelet Count 152 K/uL (130-400); RDW Coefficient of Variation 13.2 % (11.5-14.5); RDW Standard Deviation 48.2 fL (36.4-46.3); Red Blood Count 4.53 M/uL (4.70-6.10); White Blood Count 6.22 K/ul (4.8-10.8)
[2022-09-02 03:09] LABS: Albumin Globulin Ratio 1.3 (0.9-2); Albumin Level 3.9 gm/dl (3.4-5.0); BUN Creatinine Ratio 16.3 (10-20); Bilirubin,Total 0.5 mg/dl (0.2-1.0); Calcium 9.7 mg/dl (8.6-10.3); Est GFR (African American) 45.8 ml/min; Est GFR (Non-African American) 39.5 ml/min; Globulin 2.9 gm/dl (2.5-4.0); Potassium 4.4 mmol/L (3.5-5.1); Total Protein 6.8 gm/dl (6.0-8.3)
[2022-09-02 03:20] LABS: Troponin I High Sensitivity 86.9 pg/ml (0-20)
[2022-09-02] MEDS ORDERED: Heparin IV Adult Wt-Based Low-Dose WITH Bolus Protocol IV STA (03:21)
[2022-09-02] MEDS ORDERED: HEPARIN SOD (PORCINE) 1000 UNIT/ML IV ONE ×2 (03:37→03:45)
[2022-09-02] MEDS: HEPARIN SODIUM/DEXTROSE 25,000 UNITS/500 ML BAG IV SCH (03:45)
[2022-09-02 03:48] LABS: Partial Thromboplastin Ratio 0.9; Partial Thromboplastin Time 25.9 Seconds (21.0-31.0); Prothrombin Time 10.3 Seconds (9.0-12.0)
--- NOTE | 2022-09-02 04:35 | History & Physical Report ---
Date of Service September 02, 2022 Assessment & Plan (1) NSTEMI (non-ST elevated myocardial infarction): Plan: 82-year-old man with history of coronary artery disease ([place] x2 s/p DUC in 2010 at proximal LCx, DUC x3 in 2019 at distal RCA, right PDA, mid PDA), moderate ao rtic stenosis, hypertension, hypercholesterolemia, COPD, and BPH who presented today with chest pain and admitted for management, further work-up of presumed NSTEMI. Elevated troponin/NSTEMI/chest pain/CAD -History of aortic stenosis, CAD (2 NSTEMIs, both revealing >90% stenosis during cath) s/p DUC x4. -Squeezing chest pain with radiation to scapula, troponin 86.9 on admission. Chest pain resolved with SL nitro tablets prior to arrival at the hospital. -EMMANUEL score = 5 points (age, hypertension, hypercholesterolemia, ASA use, 2 anginal episodes, positive troponin). -S/p aspirin 325 mg, Nitro-Bid 2%, low-dose IV heparin with bolus in the ED. -Differential diagnosis also includes gastritis/reflux. * Admit to MedSurg telemetry * Trend troponin every 6 hours x3 * Trend PT/INR, PTT labs * Routine echocardiogram pending * NPO, except for meds * Continue home losartan, aspirin * Holding home Toprol due to bradycardia * Initiate rosuvastatin 20 mg, clopidogrel 75 mg daily (patient does have noted allergies to pravastatin, atorvastatin, and simvastatin, so low threshold for statin discontinuation/dose adjustment) * Placed cardiology consult for evaluation for cath, medical management recs as needed. Hypertension * Continue losartan 25 mg daily * Holding metoprolol succinate 100 mg for now due to bradycardia BPH with urinary obstruction * Continue tamsulosin 0.4 mg daily COPD -On daily maintenance Stiolto Respimat, as needed albuterol inhaler * Continue home regimen Code: Full code Dispo: Med-Surg telemetry FEN/GI: NPO DVT Prophylaxis: Aspirin PT/OT: No Consults: Cardiology (2) Coronary artery disease: (3) Hypertension: (4) Benign localized hyperplasia of prostate with urinary obstruction: (5) Moderate aortic stenosis: History of Present Illness Primary Care Provider: Jak Howard MD José Miguel is an 82-year-old man with a history of coronary artery disease (NSTEMI's in 2010 in 2019, s/p drug-eluting stents x4), moderate aortic stenosis, hypertension, hyperlipidemia (noted allergies to simvastatin, atorvastatin, and pravastatin) COPD, and BPH, who presented to the hospital today with 2 episodes of chest pain with minimal exertion. Patient reports having first episode last night, an hour or 2 after having pizza for dinner. He noted the chest pain was squeezing, pressure-like, but on the right side of his chest. He took nitroglycerin tablets, which resolved the chest pain. Second episode occurred while he was sleeping, which woke him up. He describes this pain is more similar to his prior NSTEMI's (crushing, with radiation to scapula). He took another nitroglycerin tablet and came to the emergency room. In the ED, work-up was notable for an elevated troponin of 86.9. EKG was negative for ST changes. No cardiomegaly on CXR. Creatinine was elevated at 1.6, but this appears to be around his baseline due to his CKD3. He received a dose of aspirin 325 mg, and started on IV heparin plus bolus. On admission, patient denies any chest pain. He reports an episode of irregular heartbeats (like his heart paused between beats) with accompanying dizziness/presyncope. Both episodes resolved after taking SL nitroglycerin. Otherwise, he denies headache, dizziness, shortness of breath, abdominal pain, or pedal edema. Patient follows with Dr. Nazario. Review of last visit note on 04/30/2022 reveals patient had been doing well with stable exercise tolerance and stamina, was managed medically. Follow-up as scheduled for 6 months, with echocardiogram for routine surveillance of moderate artery stenosis. Allergies Allergy/AdvReac Type Severity Reaction Status Date / Time niacin Allergy Intermediate ITCHING Verified 09/02/22 02:54 Penicillins Allergy Intermediate RASH Verified 09/02/22 02:54 irbesartan [From Avapro] Allergy Unknown Unknown Verified 09/02/22 02:54 iron AdvReac Severe CHEST PAIN Verified 09/02/22 02:54 zinc AdvReac Severe CHEST PAIN Verified 09/02/22 02:54 atorvastatin AdvReac Intermediate INTOLERANT Verified 09/02/22 02:54 ezetimibe AdvReac Intermediate ACHE AND Verified 09/02/22 02:54 JOINT PAIN metoprolol AdvReac Intermediate AT HIGHER Verified 09/02/22 02:54 DOSAGE - MUSCLES ACHES pravastatin [From Pravachol] AdvReac Intermediate INTOLERANT Verified 09/02/22 02:54 simvastatin AdvReac Intermediate INTOLERANT Verified 09/02/22 02:54 Home Medications Medication Instructions Recorded Confirmed Type albuterol sulfate 90 mcg/actuation 2 puff inhalation Q4H PRN 09/05/20 09/02/22 Rx aerosol inhaler shortness of breath or wheezing #6.7 grams nitroglycerin 0.4 mg sublingual 0.4 mg sublingual Q5M PRN chest 04/18/21 09/02/22 Rx tablet pain #25 tabs metoprolol succinate 100 mg 100 mg PO DAILY #90 tabs 11/08/21 09/02/22 Rx tablet,extended release 24 hr losartan 50 mg tablet 25 mg PO DAILY #90 tabs 06/04/22 09/02/22 Rx tamsulosin 0.4 mg capsule 0.4 mg PO DAILY #90 caps 08/06/22 09/02/22 Rx aspirin 81 mg tablet,delayed 81 mg PO DAILY 09/02/22 09/02/22 History release cholecalciferol (vitamin D3) 50 50 mcg PO DAILY 09/02/22 09/02/22 History mcg (2,000 unit) capsule (Vitamin D3) tiotropium 2.5 mcg-olodaterol 2.5 2 puff inhalation DAILY 09/02/22 09/02/22 History mcg/actuation mist for inhalation (Stiolto Respimat) Past Med/Surg History Medical History (Updated 09/02/22 @ 09:58 by Jak Manuel MD) Allergic rhinitis Aortic valve sclerosis Benign localized hyperplasia of prostate with urinary obstruction Bilateral tinnitus Carotid artery plaque Coronary artery disease Generalized osteoarthritis Hearing loss Hypercholesterolemia Moderate aortic stenosis Sensorineural hearing loss (SNHL) of both ears Subclavian artery stenosis Surgical History H/O hernia repair H/O wrist surgery History of coronary artery stent placement S/P appendectomy S/P rotator cuff repair S/P thoracotomy Family History Father Colorectal cancer about 78yo Mother about age 92 Brother accidental Brother Myocardial infarction Sister Obese Sister Hypertension Other Family history non-contributory Stroke Denies family history of Ovarian cancer Prostate cancer Coronary heart disease Breast cancer Social History Smoking Status: Former smoker Second Hand Exposure: No; Hx Alcohol Use: No Hx Substance Use: No Preferred Language: Greenlandic Communication Ability: Effective Visual Impairment: No Limitations Hearing Ability: Use of Hearing Aid Church Official Required: No Beliefs That Will Affect Care: None marital status: Current Living Situation: Spouse Current Living Situation Comment: home w/ current occupational status: 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 How many Children do You have: 3 Other Information That Helps Us Care for You: No Feels Safe at Home: Yes Safety Concerns: Feels Safe At This Time Childhood Exposure to Second-Hand Smoke: Yes Diet Comment: GOLO caffeine: Yes during the past year weight has: decreased > 10 lbs Dental Care, Regularly: Yes Physical Activity Frequency: 1-2 Times per Week Physical Activity Frequency Comment: walk Seatbelt Use: always Sunscreen Use: No Assistive Devices: CPAP and Hearing Aid - Bilateral Review of Systems Review of Systems: All systems reviewed & are unremarkable except as noted in HPI & below Physical Exam Physical Exam: General: No acute distress HEENT: PERRLA. Normal conjunctiva, anicteric sclera. Oropharynx normal. Respiratory: Normal respiratory effort, CTABL. Cardiovascular: Bradycardic. Regular rhythm. Systolic ejection murmur loudest at LUSB. No gallops or rubs. No pedal edema. GI: Soft abdomen with normal bowel sounds heard on auscultation. Nontender x4 quadrants Neuro: Alert and oriented x3. Results & Data Results & Data Vital Signs (Past 12 Hours) Vital Signs Temp Pulse Pulse Resp BP BP Pulse Ox 09/02/22 04:00 56 L 17 196/72 H 95 09/02/22 03:30 165/86 H 09/02/22 03:00 54 L 18 181/88 H 09/02/22 02:30 64 17 184/94 H 93 09/02/22 02:31 163 H 09/02/22 02:40 61 20 184/94 H 97 09/02/22 02:37 96 09/02/22 02:20 36.6 C 63 20 179/100 H 94 O2 Del Method 09/02/22 04:00 09/02/22 03:30 09/02/22 03:00 09/02/22 02:30 09/02/22 02:31 09/02/22 02:40 Room Air 09/02/22 02:37 Room Air 09/02/22 02:20 Room Air Supervising Physician Co-Signing Physician Notes Attending addendum: I have physically seen this patient, have supervised the medical residents activities, and agree with the H&P unless as otherwise noted. Assessment and Plan: NSTEMI/moderate aortic stenosis/hypertension/CAD- The patient will be admitted to telemetry for serial cardiac enzymes, serial EKG's, cardiac rhythm monitoring and a 2-D echocardiogram with Dopplers. Troponin is 86.9 on admission In the ED received the following: Aspirin 325 mg, Nitropaste 1 1 inch to anterior chest wall, low-dose IV heparin with bolus Continue losartan Consult cardiology BPH with LUTS- Continue tamsulosin COPD- Continue Stiolto Respimat Albuterol HFA 2 puffs 4 times daily as needed Resident Activity Tracking Resident Involvement: Resident Care Provided Care Provided: Adult Hospital Medicine
[2022-09-02] MEDS ORDERED: ALBUTEROL HFA 8 GM INHALER INH PRN (05:17)
[2022-09-02] MEDS ORDERED: NITROGLYCERIN SL 0.4 MG/TAB TAB SL PRN (05:17)
[2022-09-02] MEDS: ROSUVASTATIN CALCIUM 20 MG TAB PO SCH (05:57)
--- NOTE | 2022-09-02 07:07 | XRay Report ---
SINGLE VIEW CHEST CLINICAL HISTORY: Atypical chest pain. FINDINGS: An AP, portable, upright chest radiograph is compared to study dated 09/20/2018. The heart is enlarged. The pulmonary vasculature is noncongested. Chronic interstitial thickening similar to prev ious. There is bibasilar scarring/atelectasis. No airspace consolidation or large pleural effusion is identified. No pneumothorax is seen. The skeletal structures are osteopenic. The bony thorax is amador sly intact. Arthritic change is noted in the shoulders and spine. IMPRESSION: Cardiomegaly with no acute cardiopulmonary abnormality identified. ACT 112: Negative or not required by law. Electronically signed by: Nathan Kelly M.D. 09/02/2022 7:06 AM
--- NOTE | 2022-09-02 07:20 | Electrocardiogram Report ---
Test Reason : Blood Pressure : / mmHG Vent. Rate : 061 BPM Atrial Rate : 061 BPM P-R Int : 170 ms QRS Dur : 090 ms QT Int : 430 ms P-R-T Axes : 000 -16 189 degrees QTc Int : 432 ms Normal sinus rhythm Left ventricular hypertrophy with repolarization abnormality possible old inferior NE Abnormal ECG When compared with ECG of 23-SEP-2018 06:27, ST no longer elevated in Inferior leads ST more depressed Lateral leads T wave inversion less evident in Inferior leads T wave inversion now evident in Lateral leads Confirmed by Jak Manuel ([id number]) on 09/02/2022 7:19:46 AM Referred By: REFERRED SELF Confirmed By:You Manuel
--- NOTE | 2022-09-02 07:44 | Emergency Department Note ---
Impression & Plan Acute non-ST elevation myocardial infarction (NSTEMI) ED Provider Note CHIEF COMPLAINT: Chest pain HISTORY OF PRESENT ILLNESS: This 82-year-old male patient with complaint of coronary artery disease, hypertension, COPD, chronic kidney disease, impaired fasting glucose, prostatic hypertrophy, aortic valve sclerosis and moderate aortic stenosis presents to the emergency department with complaints of chest pain. Patient states he is concerned that it could be a heart attack but also could be indigestion as he had pizza last night. It does feel similar to previous heart attacks. He went to bed with pressure in his chest at about 11 PM and took a nitroglycerin. He woke up again around 1 with the chest discomfort. He took a nitro at that time and then came to the hospital. He does take aspirin daily. He denies any significant shortness of breath or chest discomfort at this time. Patient is followed by [facility] cardiology. REVIEW OF SYSTEMS: A review of systems was performed with positives and pertinent negatives listed in the history of present illness. 10 systems were reviewed and are otherwise negative. ALLERGIES: see below MEDICATIONS: see below PMH: see below SOCIAL HISTORY: see below DDx: Cardiac ischemia, aortic dissection, pulmonary embolism, pneumothorax, pneumonia, pericarditis, myocarditis, GERD, cholecystitis, pancreatitis, musculoskeletal, as well as other pathologies. PHYSICAL EXAM: Vital signs reviewed. General: Well-appearing 82 yo male, in no significant distress. HEENT: No scleral icterus, PERRLA, neck supple. Atraumatic. Cardiovascular: Regular rate and rhythm, no extra sounds. Pulmonary: Clear to auscultation bilaterally, normal work of breathing. Abdomen: Soft, nontender, nondistended, positive bowel sounds. Musculoskeletal: Atraumatic, no peripheral edema. Neurologic: Patient awake alert and oriented x 3, speech is clear Skin: Warm, dry, no rash EMERGENCY DEPARTMENT COURSE/MDM: This patient was evaluated and appeared to be in no significant distress. Patient was given 324 mg of aspirin to chew as well as an inch of Nitropaste. Chest x-ray was performed and reveals chronic scarring or atelectasis, no focal lung consolidation otherwise or failure. EKG is concerning with ST elevation in 1-lead inferiorly, deep ST changes laterally. When compared to previous however this seems to be improved. Patient's high- sensitivity troponin was 86.9. Heparin drip was ordered. Patient's pain was resolved at this time. Patient's case was discussed with the hospitalist service for further evaluation and management. MONITORING: An order for cardiac monitoring was placed and the patient is noted to be in a sinus rhythm at 59 beats per minute. RADIOLOGY: Chest x-ray to my review reveals some left basilar atelectasis and/or scarring that is not significantly changed from previous. Otherwise defer to radiology. EKG: To my interpretation reveals normal sinus rhythm at 61 bpm with LVH and repolarization abnormality noted in the inferior and lateral leads. Biphasic T waves in the inferior leads, when compared to previous September 23, 2018, ST segments are no longer elevated in the inferior leads, more depressed in the lateral leads. T wave inversions laterally are new. DISPOSITION: Admission I have personally spent 30 minutes of critical care time in the direct management of this patient. This was a life/limb threatening event. This 30 minutes is in excess of all separately billable procedures. Past Med/Surg History Medical History Allergic rhinitis Aortic valve sclerosis Benign localized hyperplasia of prostate with urinary obstruction Bilateral tinnitus Carotid artery plaque Coronary artery disease Generalized osteoarthritis Hearing loss Hypercholesterolemia Moderate aortic stenosis Sensorineural hearing loss (SNHL) of both ears Subclavian artery stenosis Surgical History H/O hernia repair H/O wrist surgery History of coronary artery stent placement S/P appendectomy S/P rotator cuff repair S/P thoracotomy Family History Father Colorectal cancer about 78yo Mother about age 92 Brother accidental Brother Myocardial infarction Sister Obese Sister Hypertension Other Family history non-contributory Stroke Denies family history of Ovarian cancer Prostate cancer Coronary heart disease Breast cancer Social History Smoking Status: Former smoker Second Hand Exposure: No; Hx Alcohol Use: No Hx Substance Use: No Preferred Language: Kittitian Communication Ability: Effective Visual Impairment: No Limitations Hearing Ability: Use of Hearing Aid Tool 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 Worker Required: No Beliefs That Will Affect Care: None marital status: Current Living Situation: Spouse Current Living Situation Comment: home w/ 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 How many Children do You have: 3 Other Information That Helps Us Care for You: No Feels Safe at Home: Yes Safety Concerns: Feels Safe At This Time Childhood Exposure to Second-Hand Smoke: Yes Diet Comment: GOLO caffeine: Yes during the past year weight has: decreased > 10 lbs Dental Care, Regularly: Yes Physical Activity Frequency: 1-2 Times per Week Physical Activity Frequency Comment: walk Seatbelt Use: always Sunscreen Use: No Assistive Devices: CPAP and Hearing Aid - Bilateral Allergies Allergies Allergy/AdvReac Type Severity Reaction Status Date / Time niacin Allergy Intermediate ITCHING Verified 09/02/22 02:54 Penicillins Allergy Intermediate RASH Verified 09/02/22 02:54 irbesartan [From Avapro] Allergy Unknown Unknown Verified 09/02/22 02:54 iron AdvReac Severe CHEST PAIN Verified 09/02/22 02:54 zinc AdvReac Severe CHEST PAIN Verified 09/02/22 02:54 atorvastatin AdvReac Intermediate INTOLERANT Verified 09/02/22 02:54 ezetimibe AdvReac Intermediate ACHE AND Verified 09/02/22 02:54 JOINT PAIN metoprolol AdvReac Intermediate AT HIGHER Verified 09/02/22 02:54 DOSAGE - MUSCLES ACHES pravastatin [From Pravachol] AdvReac Intermediate INTOLERANT Verified 09/02/22 02:54 simvastatin AdvReac Intermediate INTOLERANT Verified 09/02/22 02:54 Home Meds Home Medications Medication Instructions Recorded Confirmed aspirin 81 mg tablet,delayed 81 mg PO DAILY 09/02/22 09/02/22 release cholecalciferol (vitamin D3) 50 50 mcg PO DAILY 09/02/22 09/02/22 mcg (2,000 unit) capsule (Vitamin D3) tiotropium 2.5 mcg-olodaterol 2.5 2 puff inhalation DAILY 09/02/22 09/02/22 mcg/actuation mist for inhalation (Stiolto Respimat) Previous Rx's Medication Instructions Recorded albuterol sulfate 90 mcg/actuation 2 puff inhalation Q4H PRN 09/05/20 aerosol inhaler shortness of breath or wheezing #6.7 grams nitroglycerin 0.4 mg sublingual 0.4 mg sublingual Q5M PRN chest 04/18/21 tablet pain #25 tabs metoprolol succinate 100 mg 100 mg PO DAILY #90 tabs 11/08/21 tablet,extended release 24 hr losartan 50 mg tablet 25 mg PO DAILY #90 tabs 06/04/22 tamsulosin 0.4 mg capsule 0.4 mg PO DAILY #90 caps 08/06/22 Results & Data (ED) Vital Signs Vital Signs - 24 hr 09/02/22 02:20 09/02/22 02:37 09/02/22 02:40 Temperature 36.6 C Temperature Source Temporal Artery Scan Pulse Rate 63 Pulse Rate [Finger] 61 Pulse Rate from SpO2 Sensor Respiratory Rate 20 20 Respiratory Effort / Characteristics Non-Labored Spontaneous Respiratory Depth Normal Blood Pressure 179/100 H Blood Pressure [Right Arm] 184/94 H Blood Pressure Mean 126 Blood Pressure Mean [Right Arm] 124 Pulse Oximetry 94 96 97 Oxygen Delivery Method Room Air Room Air Room Air Sepsis Recent Fever Within 48 Hours No Sepsis New/Unexplained Change in Mental Status No Sepsis Action Taken by Nursing No Action Required 09/02/22 02:31 09/02/22 02:30 09/02/22 03:00 Temperature Temperature Source Pulse Rate 163 H 64 54 L Pulse Rate [Finger] Pulse Rate from SpO2 Sensor 64 Respiratory Rate 17 18 Respiratory Effort / Characteristics Respiratory Depth Blood Pressure 184/94 H 181/88 H Blood Pressure [Right Arm] Blood Pressure Mean 124 119 Blood Pressure Mean [Right Arm] Pulse Oximetry 93 Oxygen Delivery Method Sepsis Recent Fever Within 48 Hours Sepsis New/Unexplained Change in Mental Status Sepsis Action Taken by Nursing 09/02/22 03:30 09/02/22 04:00 Temperature Temperature Source Pulse Rate 56 L Pulse Rate [Finger] Pulse Rate from SpO2 Sensor 57 L Respiratory Rate 17 Respiratory Effort / Characteristics Respiratory Depth Blood Pressure 165/86 H 196/72 H Blood Pressure [Right Arm] Blood Pressure Mean 112 113 Blood Pressure Mean [Right Arm] Pulse Oximetry 95 Oxygen Delivery Method Sepsis Recent Fever Within 48 Hours Sepsis New/Unexplained Change in Mental Status Sepsis Action Taken by [facility] Medications Current Medication List: was personally reviewed by me Laboratory Data Attestation: I reviewed the patient's lab results. 09/02/22 02:34 09/02/22 02:34 Lab Results 09/02/22 09/02/22 09/02/22 Range/Units 02:34 02:34 02:34 WBC 6.22 (4.8-10.8) K/ul RBC 4.53 L (4.70-6.10) M/uL Hgb 14.7 (14.0-18.0) g/dl Hct 44.6 (42.0-52.0) % MCV 98.5 (80.0-100.0) fL MCH 32.5 (25.0-34.0) pg MCHC 33.0 (32.0-36.0) g/dL RDW Std Deviation 48.2 H (36.4-46.3) fL RDW Coeff of Yolande 13.2 (11.5-14.5) % Plt Count 152 (130-400) K/uL MPV 10.9 (9.4-12.4) fL Immature Gran % (Auto) 0.3 % Neut % (Auto) 60.1 % Lymph % (Auto) 26.8 % Trego % (Auto) 8.0 % Eos % (Auto) 4.3 % Baso % (Auto) 0.5 % Neut # (Auto) 3.73 (1.40-6.50) K/uL Lymph # (Auto) 1.67 (1.2-3.4) K/uL Trego # (Auto) 0.50 (0.11-0.59) K/uL Eos # (Auto) 0.27 (0-0.50) K/uL Baso # (Auto) 0.03 (0-0.2) K/uL Immature Gran # (Auto) 0.02 (0.01-0.20) K/uL PT 10.3 (9.0-12.0) Seconds INR 1.0 (0.9-1.1) APTT 25.9 (21.0-31.0) Seconds PTT Ratio 0.9 Sodium 138 (136-145) mmol/L Potassium 4.4 (3.5-5.1) mmol/L Chloride 104 (98-107) mmol/L Carbon Dioxide 29 (21-32) mmol/L Anion Gap 5 (3-11) BUN 26 H (6-23) mg/dl Creatinine 1.60 H (0.6-1.4) mg/dl Est Cr Clr Drug Dosing 39.0 ml/min Est GFR ( Amer) 45.8 ml/min Est GFR (Non-Af Amer) 39.5 ml/min BUN/Creatinine Ratio 16.3 (10-20) Glucose 135 H (70-99(Fasting)) mg/dl Calcium 9.7 (8.6-10.3) mg/dl Total Bilirubin 0.5 (0.2-1.0) mg/dl AST 16 (13-39) U/L ALT 8 (7-52) U/L Alkaline Phosphatase 41 (34-104) U/L Troponin I High Sens 86.9 H* (0-20) pg/ml Total Protein 6.8 (6.0-8.3) gm/dl Albumin 3.9 (3.4-5.0) gm/dl Globulin 2.9 (2.5-4.0) gm/dl Albumin/Globulin Ratio 1.3 (0.9-2) Lipase 42 (11-82) U/L SARS-CoV-2, RNA, NAAT (NEGATIVE) 09/02/22 Range/Units 02:49 WBC (4.8-10.8) K/ul RBC (4.70-6.10) M/uL Hgb (14.0-18.0) g/dl Hct (42.0-52.0) % MCV (80.0-100.0) fL MCH (25.0-34.0) pg MCHC (32.0-36.0) g/dL RDW Std Deviation (36.4-46.3) fL RDW Coeff of Yolande (11.5-14.5) % Plt Count (130-400) K/uL MPV (9.4-12.4) fL Immature Gran % (Auto) % Neut % (Auto) % Lymph % (Auto) % Trego % (Auto) % Eos % (Auto) % Baso % (Auto) % Neut # (Auto) (1.40-6.50) K/uL Lymph # (Auto) (1.2-3.4) K/uL Trego # (Auto) (0.11-0.59) K/uL Eos # (Auto) (0-0.50) K/uL Baso # (Auto) (0-0.2) K/uL Immature Gran # (Auto) (0.01-0.20) K/uL PT (9.0-12.0) Seconds INR (0.9-1.1) APTT (21.0-31.0) Seconds PTT Ratio Sodium (136-145) mmol/L Potassium (3.5-5.1) mmol/L Chloride (98-107) mmol/L Carbon Dioxide (21-32) mmol/L Anion Gap (3-11) BUN (6-23) mg/dl Creatinine (0.6-1.4) mg/dl Est Cr Clr Drug Dosing ml/min Est GFR ( Amer) ml/min Est GFR (Non-Af Amer) ml/min BUN/Creatinine Ratio (10-20) Glucose (70-99(Fasting)) mg/dl Calcium (8.6-10.3) mg/dl Total Bilirubin (0.2-1.0) mg/dl AST (13-39) U/L ALT (7-52) U/L Alkaline Phosphatase (34-104) U/L Troponin I High Sens (0-20) pg/ml Total Protein (6.0-8.3) gm/dl Albumin (3.4-5.0) gm/dl Globulin (2.5-4.0) gm/dl Albumin/Globulin Ratio (0.9-2) Lipase (11-82) U/L SARS-CoV-2, RNA, NAAT NEGATIVE (NEGATIVE) Administered Medications Heparin Sodium/Dextrose (Heparin Sodium/Dextrose) 25,000 units in 500 mls @ 19 mls/hr IV .Q24H [facility]; Protocol Stop: 10/02/22 03:44 Last Admin: 09/02/22 03:45 Dose: 950 units/hr, 19 mls/hr Documented By: PRIYA Co-signed By: TOYIN Rosuvastatin Calcium (Rosuvastatin Calcium 20 Mg Tab) [facility] [place] Stop: 10/02/22 05:16 Last Admin: 09/02/22 05:57 Dose: 20 mg Documented By: TESSIE Discontinued Medications Aspirin (Aspirin Chew 324 Mg) 324 mg PO NOW STA Stop: 09/02/22 02:32 Last Admin: 09/02/22 02:54 Dose: 324 mg Documented By: PRIYA Heparin Sodium (Porcine) (Heparin Sod (Porcine) 1000 Unit/Ml) 4,000 units IV NOW ONE Stop: 09/02/22 03:46 Last Admin: 09/02/22 03:45 Dose: 4,000 units Documented By: PRIYA Co-signed By: TOYIN Heparin Sodium/Dextrose (Heparin Iv Adult Wt-Based Low-Dose With Bolus Protocol) 1 each IV NOW STA; Protocol Stop: 09/02/22 03:22 Last Admin: 09/02/22 03:51 Dose: Not Given Documented By: PRIYA Nitroglycerin (Nitroglycerin 2% Ointment 30gm Tube) 1 inch EXT NOW STA Stop: 09/02/22 02:32 Last Admin: 09/02/22 02:55 Dose: 1 inch Documented By: PRIYA Imaging Data Radiologist's Impression: Chest X-Ray 09/02/22 02:31 SINGLE VIEW CHEST CLINICAL HISTORY: Atypical chest pain. FINDINGS: An AP, portable, upright chest radiograph is compared to study dated 09/20/2018. The heart is enlarged. The pulmonary vasculature is noncongested. Chronic interstitial thickening similar to previous. There is bibasilar scarring/atelectasis. No airspace consolidation or large pleural effusion is identified. No pneumothorax is seen. The skeletal structures are osteopenic. The bony thorax is grossly intact. Arthritic change is noted in the shoulders and spine. IMPRESSION: Cardiomegaly with no acute cardiopulmonary abnormality identified. ACT 112: Negative or not required by law. Electronically signed by: Nathan Kelly M.D. 09/02/2022 7:06 AM Discharge Plan Visit Data Chief Complaint: Cardiac Assessment Stated Complaint: CHEST PRESSURE,TOOK NITRO TAB AND HELPED ED Provider: Yelena Bautista Discharge Problem: Acute non-ST elevation myocardial infarction (NSTEMI) Patient Disposition: Admitted As Inpatient Discharge Instructions Interventions: ED Discharge Assessment Last Done: 09/02/22 05:04
--- NOTE | 2022-09-02 08:20 | Hospitalist Progress Note ---
Date of Service September 02, 2022 Assessment & Plan (1) NSTEMI (non-ST elevated myocardial infarction): Plan: Pt is an 82 yo man with history of coronary artery disease (PR x2 s/p DUC in 2010 at proximal LCx, DUC x3 in 2019 at distal RCA, right PDA, mid PDA), moderate aortic stenosis, hypertension, hypercholesterolemia, COPD, and BPH who presented today with chest pain and admitted for management, further work-up of presumed NSTEMI. Elevated troponin/NSTEMI - History of aortic stenosis, CAD (2 NSTEMIs, both revealing >90% stenosis during cath) s/p DUC x4. - chest pressure with radiation to right scapula, troponin 86.9 on admission. Chest pain resolved with SL nitro tablets prior to arrival at the hospital. - EMMANUEL score = 5 points (age, hypertension, hypercholesterolemia, ASA use, 2 anginal episodes, positive troponin). - s/p aspirin 325 mg, Nitro-Bid 2%, low-dose IV heparin with bolus in the ED - echo showed no significant change from 08/2021, minimal progression of - troponin uptrending and has not peaked- continue to trend q6hr to peak - card consulted; recommend cath tomorrow (NPO at midnight w/ fluids ordered) - continue daily aspirin, plavix, and rosuvastatin 20 mg as tolerated (patient does have noted allergies to pravastatin, atorvastatin, and simvastatin, so low threshold for statin discontinuation/dose adjustment) Hypertension - Continue losartan 25 mg daily, metoprolol succinate 100 mg BPH with urinary obstruction - Continue tamsulosin 0.4 mg daily COPD - On daily maintenance Stiolto Respimat, as needed albuterol inhaler - Continue home regimen (2) Coronary artery disease: (3) Hypertension: (4) Benign localized hyperplasia of prostate with urinary obstruction: (5) Moderate aortic stenosis: Plan Code: Full code Dispo: Med-Surg/telemetry FEN/GI: heart healthy diet, NPO at midnight for cath tomorrow DVT Prophylaxis: aspirin, plavix PT/OT: No Consults: Cardiology Admission and Anticipated Discharge Date Admission Date: September 02, 2022 Supervising Physician Co-Signing Physician Notes I personally examined the patient and verified all fleming points of history and exam, discussed case, and agree with decision making with Dr Aguilera No further chest pain. Feeling okay. For left heart cath tomorrow. He notes he has had several stents prior. Asked very good questions today answered to the best my ability. Vitals noted, in general he is awake and alert pleasant no distress. HEENT normocephalic atraumatic mucous membranes moist. Breathing unlabored no accessory muscle use good effort. Skin shows no rashes no pallor or icterus. Labs and diagnosticsmost notably EKG and troponin, but also CBC/BMP reviewed NSTEMImed management, left heart cath tomorrow. Continue to follow closely, but pain-free for now. Med management and lifestyle for secondary risk red uction. Subjective Pt seen at bedside this AM. He has been chest pain free since around 3:30 AM. He is currently wearing a nitro patch. He does endorse a mild headache. Denies N/V/D, recurrent chest pain, SOB, and leg pains. Review of Systems Review of Systems: All systems reviewed & are unremarkable except as noted in HPI & below Physical Exam Physical Exam: Constitutional: well appearing, no acute distress HEENT: normocephalic, no conjunctival injection CV: RRR, 2/6 systolic murmur noted, no LE edema Respiratory: CTA bilaterally. No rhonchi, wheezes, or crackles. No increased work of breathing MSK: no gross deformities noted Skin: warm, dry, no rashes Neuro: alert, oriented, no FND noted Psych: mood and affect congruent Results & Data Results & Data Vital Signs (Past 12 Hours) Vital Signs Temp Pulse Pulse Resp BP BP Pulse Ox 09/02/22 07:31 36.4 C L 52 L 18 159/83 H 92 09/02/22 06:53 57 L 09/02/22 05:14 36.5 C 59 L 18 164/85 H 94 09/02/22 05:18 09/02/22 05:18 36.5 C 59 L 18 164/85 H 94 09/02/22 04:00 56 L 17 196/72 H 95 09/02/22 03:30 165/86 H 09/02/22 03:00 54 L 18 181/88 H 09/02/22 02:30 64 17 184/94 H 93 09/02/22 02:31 163 H 09/02/22 02:40 61 20 184/94 H 97 09/02/22 02:37 96 09/02/22 02:20 36.6 C 63 20 179/100 H 94 O2 Del Method 09/02/22 07:31 Room Air 09/02/22 06:53 09/02/22 05:14 Room Air 09/02/22 05:18 Room Air 09/02/22 05:18 Room Air 09/02/22 04:00 09/02/22 03:30 09/02/22 03:00 09/02/22 02:30 09/02/22 02:31 09/02/22 02:40 Room Air 09/02/22 02:37 Room Air 09/02/22 02:20 Room Air Resident Activity Tracking Resident Involvement: Resident Care Provided Care Provided: Adult Hospital Medicine
[2022-09-02] MEDS ORDERED: CLOPIDOGREL BISULFATE 75 MG TAB PO SCH (09:00)
[2022-09-02] MEDS: CHOLECALCIFEROL 1,000 UNITS 25 MCG TAB PO SCH (09:11)
[2022-09-02] MEDS: LOSARTAN POTASSIUM 25 MG TAB PO SCH (09:11)
[2022-09-02] MEDS: UMECLIDINIUM/VILANTEROL 62.5/25MCG 7 PUFFS/INHALER INH SCH (09:11)
[2022-09-02] MEDS: ASPIRIN 81 MG ECTAB PO SCH (09:11)
[2022-09-02] MEDS: TAMSULOSIN HCL 0.4 MG CAP PO SCH (09:11)
[2022-09-02] MEDS: METOPROLOL SUCC 50MG EXT REL TAB PO SCH (09:12)
--- NOTE | 2022-09-02 09:29 | XCELERA ---
[id number]
--- NOTE | 2022-09-02 09:51 | Cardiology Consultation ---
Date of Consultation September 02, 2022 Assessment & Plan (1) Acute non-ST elevation myocardial infarction (NSTEMI): (2) Coronary artery disease: (3) CKD (chronic kidney disease), stage III: (4) Hypercholesterolemia: (5) Subclavian artery stenosis: (6) Valvular heart disease: Plan 1. NSTEMI: Blood his symptoms are suggestive of his prior events. He does have elevation in his cardiac biomarkers. EKG is abnormal and changed from prior (last EKG 2018). Given his symptoms, history and objective findings, I think we will treat this as an acute coronary syndrome. Will continue the heparin infusion. Will start dual anti-platelet therapy with the addition of Plavix. Will continue his beta-christelle. Continue nitro paste. In the absence of worsening symptoms we will plan on coronary angiography tomorrow. 2. Coronary disease: He has prior percutaneous intervention to the proximal left circumflex, mid LAD and right coronary arteries. He has had some intolerance to statin therapy previously but will try again. On aspirin as an outpatient. Will add Plavix. 3. Hyperlipidemia: We trial statin therapy. Alternatives would be Zetia, PKS9 inhibitor or bempedoic acid 4. Valvular heart disease: He has an element of aortic and mitral valvular disease which is not severe. Not currently playing a role in his symptoms. Preserved LV systolic function. To be followed over time. 5. Chronic renal insufficiency: We will hydrate overnight in anticipation of coronary angiography tomorrow. 6. Right subclavian stenosis: Noted on ultrasound in 2019. Good right radial pulse but this could compromise the approach for angiography. No noted difficulties during catheterization in 2019 7. Palpitations: Patient's palpitations sound like ventricular ectopy. Longstanding in nature. Some symptoms associated with the arrhythmias but infrequent and well tolerated. Curiously, he has found some improvement in his symptoms with nitroglycerin. This seems like a benign intervention in the absence of significant headaches or dizziness afterwards. Will keep him on tel emetry. Consider outpatient monitoring of the symptoms worsen. History of Present Illness Reason for Consultation: Chest pain Requesting Physician: Juan F Attending Physician: Lars Vela DO History of Present Illness The patient is an 82-year-old gentleman with a history of coronary artery disease having previously undergone percutaneous intervention in both 2009 and 2019. Patient states that yesterday around 10:00 p.m. he get began to experience symptoms of a chest pressure in the upper left chest and shoulder area. This was reminiscent of prior episodes of angina. The patient did take a nitroglycerin with some improvement but not complete resolution of his symptoms. He decided to go to bed and was awoken later that evening with worsening of his symptoms. He again took a nitroglycerin and called an ambulance. He was brought to the emergency room. It is unclear when his symptoms resolved but he is currently pain free. The patient did report some occasional discomfort under the right scapula which was transient and under the left armpit. He at 1st he was not sure the symptoms were related to eating pizza and indigestion, but some features were similar to prior heart attacks that he has had. No associated shortness of breath. No associated dizziness or lightheadedness. No associated palpitations. The patient is generally quite active. He is able to perform moderate activity without chest discomfort. Some history of dyspnea which is chronic and unchanged recently. Allergies Allergy/AdvReac Type Severity Reaction Status Date / Time niacin Allergy Intermediate ITCHING Verified 09/02/22 02:54 Penicillins Allergy Intermediate RASH Verified 09/02/22 02:54 irbesartan [From Avapro] Allergy Unknown Unknown Verified 09/02/22 02:54 iron AdvReac Severe CHEST PAIN Verified 09/02/22 02:54 zinc AdvReac Severe CHEST PAIN Verified 09/02/22 02:54 atorvastatin AdvReac Intermediate INTOLERANT Verified 09/02/22 02:54 ezetimibe AdvReac Intermediate ACHE AND Verified 09/02/22 02:54 JOINT PAIN metoprolol AdvReac Intermediate AT HIGHER Verified 09/02/22 02:54 DOSAGE - MUSCLES ACHES pravastatin [From Pravachol] AdvReac Intermediate INTOLERANT Verified 09/02/22 02:54 simvastatin AdvReac Intermediate INTOLERANT Verified 09/02/22 02:54 Home Medications Medication Instructions Recorded Confirmed Type albuterol sulfate 90 mcg/actuation 2 puff inhalation Q4H PRN 09/05/20 09/02/22 Rx aerosol inhaler shortness of breath or wheezing #6.7 grams nitroglycerin 0.4 mg sublingual 0.4 mg sublingual Q5M PRN chest 04/18/21 09/02/22 Rx tablet pain #25 tabs metoprolol succinate 100 mg 100 mg PO DAILY #90 tabs 11/08/21 09/02/22 Rx tablet,extended release 24 hr losartan 50 mg tablet 25 mg PO DAILY #90 tabs 06/04/22 09/02/22 Rx tamsulosin 0.4 mg capsule 0.4 mg PO DAILY #90 caps 08/06/22 09/02/22 Rx aspirin 81 mg tablet,delayed 81 mg PO DAILY 09/02/22 09/02/22 History release cholecalciferol (vitamin D3) 50 50 mcg PO DAILY 09/02/22 09/02/22 History mcg (2,000 unit) capsule (Vitamin D3) tiotropium 2.5 mcg-olodaterol 2.5 2 puff inhalation DAILY 09/02/22 09/02/22 History mcg/actuation mist for inhalation (Stiolto Respimat) Patient History Medical History (Updated 09/02/22 @ 09:58 by Jak Manuel MD) Allergic rhinitis Aortic valve sclerosis Benign localized hyperplasia of prostate with urinary obstruction Bilateral tinnitus Carotid artery plaque Coronary artery disease Generalized osteoarthritis Hearing loss Hypercholesterolemia Moderate aortic stenosis Sensorineural hearing loss (SNHL) of both ears Subclavian artery stenosis Surgical History H/O hernia repair H/O wrist surgery History of coronary artery stent placement S/P appendectomy S/P rotator cuff repair S/P thoracotomy Family History Father Colorectal cancer about 78yo Mother about age 92 Brother accidental Brother Myocardial infarction Sister Obese Sister Hypertension Other Family history non-contributory Stroke Denies family history of Ovarian cancer Prostate cancer Coronary heart disease Breast cancer Social History Smoking Status: Former smoker Second Hand Exposure: No; Hx Alcohol Use: No Hx Substance Use: No Preferred Language: Pakistani Communication Ability: Effective Visual Impairment: No Limitations Hearing Ability: Use of Hearing Aid Personal Injury Specialist Required: No Beliefs That Will Affect Care: None marital status: Current Living Situation: Spouse Current Living Situation Comment: home w/ current 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 Patient also describes a phenomenon of an irregular heartbeat. This is been going on for quite some time. The episodes themselves are fairly random in nature. They can be longstanding and involve a sense of a forceful heartbeat in a fairly regular fashion. He does have some transient dizziness and lightheadedness associated with these episodes. Lately he has been taking a nitroglycerin which seems to resolve the episodes more quickly than if he just allows them to resolve on their own. Physical Exam Physical Exam: The patient is alert and oriented. Mood and affect appeared normal. He answered all questions appropriately. HEENT: Pupils are equal and reactive to light and accommodation. Extraocular movements are intact. The sclerae are anicteric. Neuro: Cranial nerves intact Lungs: Clear to auscultation bilaterally. He has good air movement without use of accessory muscles. No rales wheezes or rhonchi. Cardiac: Heart demonstrates a regular rate and rhythm. Normal S1 and S2. Crescendo systolic murmur. Pulses: The patient has palpable radial pulses bilaterally that are equal in intensity Extremities: There was no evidence of hypoperfusion. There is no cyanosis or clubbing. There is no edema. Skin: I did not appreciate any rashes on examination today. Results & Data Vital Signs (Past 12 Hours) Vital Signs Temp Pulse Pulse Resp BP BP Pulse Ox 09/02/22 09:10 64 09/02/22 07:31 36.4 C L 52 L 18 159/83 H 92 09/02/22 06:53 57 L 09/02/22 05:14 36.5 C 59 L 18 164/85 H 94 09/02/22 05:18 09/02/22 05:18 36.5 C 59 L 18 164/85 H 94 09/02/22 04:00 56 L 17 196/72 H 95 09/02/22 03:30 165/86 H 09/02/22 03:00 54 L 18 181/88 H 09/02/22 02:30 64 17 184/94 H 93 09/02/22 02:31 163 H 09/02/22 02:40 61 20 184/94 H 97 09/02/22 02:37 96 09/02/22 02:20 36.6 C 63 20 179/100 H 94 O2 Del Method 09/02/22 09:10 09/02/22 07:31 Room Air 09/02/22 06:53 09/02/22 05:14 Room Air 09/02/22 05:18 Room Air 09/02/22 05:18 Room Air 09/02/22 04:00 09/02/22 03:30 09/02/22 03:00 09/02/22 02:30 09/02/22 02:31 09/02/22 02:40 Room Air 09/02/22 02:37 Room Air 09/02/22 02:20 Room Air Laboratory Results Abnormal Lab Results 09/02/22 09/02/22 09/02/22 02:34 02:34 02:34 WBC 6.22 RBC 4.53 L Hgb 14.7 Hct 44.6 MCV 98.5 MCH 32.5 MCHC 33.0 RDW Std Deviation 48.2 H RDW Coeff of Yolande 13.2 Plt Count 152 MPV 10.9 Immature Gran % (Auto) 0.3 Neut % (Auto) 60.1 Lymph % (Auto) 26.8 [place] % (Auto) 8.0 Eos % (Auto) 4.3 Baso % (Auto) 0.5 Neut # (Auto) 3.73 Lymph # (Auto) 1.67 [place] # (Auto) 0.50 Eos # (Auto) 0.27 Baso # (Auto) 0.03 Immature Gran # (Auto) 0.02 PT 10.3 INR 1.0 APTT 25.9 PTT Ratio 0.9 Sodium 138 Potassium 4.4 Chloride 104 Carbon Dioxide 29 Anion Gap 5 BUN 26 H Creatinine 1.60 H Est Cr Clr Drug Dosing 39.0 Est GFR ( Amer) 45.8 Est GFR (Non-Af Amer) 39.5 BUN/Creatinine Ratio 16.3 Glucose 135 H Calcium 9.7 Total Bilirubin 0.5 AST 16 ALT 8 Alkaline Phosphatase 41 Troponin I High Sens 86.9 H* Total Protein 6.8 Albumin 3.9 Globulin 2.9 Albumin/Globulin Ratio 1.3 Lipase 42 SARS-CoV-2, RNA, NAAT 09/02/22 09/02/22 02:49 07:13 WBC RBC Hgb Hct MCV MCH MCHC RDW Std Deviation RDW Coeff of Yolande Plt Count MPV Immature Gran % (Auto) Neut % (Auto) Lymph % (Auto) [place] % (Auto) Eos % (Auto) Baso % (Auto) Neut # (Auto) Lymph # (Auto) [place] # (Auto) Eos # (Auto) Baso # (Auto) Immature Gran # (Auto) PT INR APTT PTT Ratio Sodium Potassium Chloride Carbon Dioxide Anion Gap BUN Creatinine Est Cr Clr Drug Dosing Est GFR ( Amer) Est GFR (Non-Af Amer) BUN/Creatinine Ratio Glucose Calcium Total Bilirubin AST ALT Alkaline Phosphatase Troponin I High Sens 293.2 H* D Total Protein Albumin Globulin Albumin/Globulin Ratio Lipase SARS-CoV-2, RNA, NAAT NEGATIVE Diagnostic Findings Echocardiogram performed today revealed preserved LV systolic function with only mild basal inferior hypokinesis. Mild left ventricular hypertrophy. Mild to moderate aortic stenosis with [id number] aortic regurgitation and mild mitral regurgitation. X-ray obtained the time admission not reveal any acute cardiopulmonary process. Vascular duplex study performed 09/23/2019 revealed normal flow in the carotid arteries. Antegrade flow in the vertebral arteries. Greater than 50% stenosis in the right subclavian artery. No evidence of subclavian steal. ECG Additional Comments: EKG obtained the time admission revealed normal sinus rhythm with LVH and ST segment depressions. PG Care Time/CCT Total # of Minutes Spent Total Time Spent with Patient: Total time spent is greater than 50% in coordination of care (as documented) at patient's floor/unit and/or counseling patient: Coding Level of Care Code 24020 INT INP/OBS CARE 3/75MIN Diagnoses Acute non-ST elevation myocardial infarction (NSTEMI) I21.4 Coronary artery disease I25.10 CKD (chronic kidney disease), stage III N18.3 Hypercholesterolemia E78.00 Subclavian artery stenosis I77.1 Valvular heart disease I38
[2022-09-02] MEDS ORDERED: CLOPIDOGREL BISULFATE 300 MG TAB PO ONE (10:04)
[2022-09-02 10:53] LABS: Partial Thromboplastin Ratio 2.1; Prothrombin Time 10.7 Seconds (9.0-12.0)
[2022-09-02 10:59] LABS: Partial Thromboplastin Time 56.7 Seconds (21.0-31.0)
[2022-09-02] MEDS ORDERED: ACETAMINOPHEN 325 MG TAB PO PRN (14:04)
--- NOTE | 2022-09-02 18:19 | Billing Data ---
Date of Service September 02, 2022 Coding Level of Care Code 64921 SUB INP/OBS CARE MIN
[2022-09-02] MEDS: SODIUM CHLORIDE 0.9% 1000ML 1,000 ML IV SCH (21:16)
[2022-09-03 05:52] LABS: Hematocrit (blood only) 42.1 % (42.0-52.0); Hemoglobin 14.8 g/dl (14.0-18.0); Mean Corpuscular Hgb Conc 35.2 g/dL (32.0-36.0); Mean Corpuscular Volume 93.8 fL (80.0-100.0); Mean Platelet Volume 10.9 fL (9.4-12.4); Platelet Count 142 K/uL (130-400); RDW Coefficient of Variation 13.1 % (11.5-14.5); Red Blood Count 4.49 M/uL (4.70-6.10); White Blood Count 6.35 K/ul (4.8-10.8)
[2022-09-03 06:10] LABS: BUN Creatinine Ratio 15.1 (10-20); Calcium 9.5 mg/dl (8.6-10.3); Chol HDL Ratio 3.3 (0-5); Creatinine Clr Calc Pharmacy 36.3 ml/min; Est GFR (Non-African American) 36.2 ml/min; Magnesium 1.9 mg/dl (1.7-2.4); Phosphorus 2.8 mg/dl (2.5-4.9)
--- NOTE | 2022-09-03 06:16 | Billing Data ---
Date of Service September 03, 2022 Coding Level of Care Code 33628 INT INP/OBS CARE
[2022-09-03] MEDS: HEPARIN SODIUM/DEXTROSE 25,000 UNITS/500 ML BAG IV SCH (06:22)
[2022-09-03 06:58] LABS: Partial Thromboplastin Ratio 1.8
--- NOTE | 2022-09-03 07:05 | Hospitalist Progress Note ---
Date of Service September 03, 2022 Assessment & Plan (1) NSTEMI (non-ST elevated myocardial infarction): Plan: Pt is an 82 yo man with history of coronary artery disease (SC x2 s/p DUC in 2010 at proximal LCx, DUC x3 in 2019 at distal RCA, right PDA, mid PDA), moderate aortic stenosis, hypertension, hypercholesterolemia, COPD, and BPH who presented today with chest pain and admitted for management, further work-up of presumed NSTEMI. Elevated troponin/NSTEMI - History of aortic stenosis, CAD (2 NSTEMIs, both revealing >90% stenosis during cath) s/p DUC x4. - chest pressure with radiation to right scapula, troponin 86.9 on admission. Chest pain resolved with SL nitro tablets prior to arrival at the hospital. - EMMANUEL score = 5 points (age, hypertension, hypercholesterolemia, ASA use, 2 anginal episodes, positive troponin). - s/p aspirin 325 mg, Nitro-Bid 2%, low-dose IV heparin with bolus in the ED - echo showed no significant change from 08/2021, minimal progression of - troponin uptrending and has not peaked- continue to trend q6hr to peak - card consulted; recommend cath tomorrow (NPO at midnight w/ fluids ordered) - continue daily aspirin, plavix, and rosuvastatin 20 mg as tolerated (patient does have noted allergies to pravastatin, atorvastatin, and simvastatin, so low threshold for statin discontinuation/dose adjustment) --- Patient tolerating statin therapy --- S/p Cath 09/03: No stent placement, Cardiology recommended medical management, appreciate recommendations --- Patient resting comfortably following procedure Hypertension - Continue losartan 25 mg daily, metoprolol succinate 100 mg BPH with urinary obstruction - Continue tamsulosin 0.4 mg daily COPD - On daily maintenance Stiolto Respimat, as needed albuterol inhaler - Continue home regimen (2) Coronary artery disease: (3) Hypertension: (4) Benign localized hyperplasia of prostate with urinary obstruction: (5) Moderate aortic stenosis: Plan Code: Full code Dispo: Med-Surg/telemetry FEN/GI: heart healthy diet DVT Prophylaxis: Ambulation (continue aspirin/Plavix) PT/OT: No Consults: Cardiology Admission and Anticipated Discharge Date Admission Date: September 02, 2022 Supervising Physician Co-Signing Physician Notes ATTESTATION I also saw the patient and confirmed fleming portions of the history and exam. I agree with the impression and plan in the resident documentation, and as summarized below. Upon our early afternoon exam, the patient has no complaints. He is post catheterization. He is visiting with family. EXAM 144/73, 56, 18, 36.4, 95% room air Alert and oriented. No distress appreciated. Heart regular Lungs clear with nonlabored respirations DATA Labs Hemoglobin 14.8 Sodium 135, potassium 4.0, BUN 26, creatinine 1.72 IMPRESSION & PLAN NSTEMI/moderate aortic stenosis/hypertension/CAD Appreciate cardiology consultation Cath completed today, no intervention Will discuss continued medical management with cardiology Ambulate in hallway Additional diagnosis per resident documentation Subjective [id number] Patient resting comfortably in bed this morning upon arrival with family at bedside. Patient denies any discomfort. He was not experiencing any chest pain, dyspnea, headache, vision change, or bowel/bladder discomfort. Answered patient's questions about procedure and plan for the day. Discussed with family at patient's request. 1300 Evaluated patient at bedside following procedure. Sitting comfortably w/o concerns. Patient notes no stent placement and plan to proceed with medical mgmt. Review of Systems Review of Systems: As per HPI Physical Exam Physical Exam: Constitutional: well appearing, no acute distress HEENT: normocephalic, no conjunctival injection CV: RRR, 2/6 systolic murmur noted, no LE edema Respiratory: CTA bilaterally. No rhonchi, wheezes, or crackles. No increased work of breathing MSK: no gross deformities noted Skin: warm, dry, no rashes Neuro: alert, oriented, no FND noted Psych: mood and affect congruent Results & Data Results & Data Vital Signs (Past 12 Hours) Vital Signs Temp Pulse Pulse Resp BP BP Pulse Ox 09/03/22 03:23 36.4 C L 57 L 18 210/100 H 212/109 H 97 09/03/22 01:08 63 09/02/22 23:51 57 L 177/98 H 09/02/22 23:28 36.4 C L 56 L 18 193/93 H 94 09/02/22 19:31 36.6 C 59 L 18 175/78 H 96 O2 Del Method 09/03/22 03:23 Room Air 09/03/22 01:08 09/02/22 23:51 09/02/22 23:28 Room Air 09/02/22 19:31 Room Air Resident Activity Tracking Resident Involvement: Resident Care Provided Care Provided: Adult Hospital Medicine
[2022-09-03 07:07] LABS: Partial Thromboplastin Time 48.7 Seconds (21.0-31.0)
[2022-09-03] MEDS: TAMSULOSIN HCL 0.4 MG CAP PO SCH (08:12)
[2022-09-03] MEDS: ROSUVASTATIN CALCIUM 20 MG TAB PO SCH (08:12)
[2022-09-03] MEDS: CHOLECALCIFEROL 1,000 UNITS 25 MCG TAB PO SCH (08:12)
[2022-09-03] MEDS: LOSARTAN POTASSIUM 25 MG TAB PO SCH (08:12)
[2022-09-03] MEDS: METOPROLOL SUCC 50MG EXT REL TAB PO SCH (08:12)
[2022-09-03] MEDS: UMECLIDINIUM/VILANTEROL 62.5/25MCG 7 PUFFS/INHALER INH SCH (08:12)
[2022-09-03] MEDS: ASPIRIN 81 MG ECTAB PO SCH (08:12)
[2022-09-03] MEDS: SODIUM CHLORIDE 0.9% 1000ML 1,000 ML IV SCH ×2 (08:17→21:55)
[2022-09-03] MEDS ORDERED: niCARdipine HCL INJ 2.5 MG/ML 10 ML AMP ONE (08:26)
[2022-09-03] MEDS ORDERED: HEPARIN (PORCINE) 1000 UNIT/ML 10 ML (CATH LAB USE ONLY) ONE (08:26)
[2022-09-03] MEDS ORDERED: fentaNYL citrate PF 100 MCG/2 ML VIAL ONE (08:27)
[2022-09-03] MEDS ORDERED: NITROGLYCERIN/D5W 100MCG/ML 20ML SYR ONE (08:27)
[2022-09-03] MEDS ORDERED: MIDAZOLAM HCL 1 MG/ML 2ML VIAL ONE (08:27)
--- NOTE | 2022-09-03 10:03 | Pre Anesthesia Assessment ---
Date of Service September 03, 2022 Pre Sedation Assessment Vital Signs Temp Pulse Pulse Resp BP BP Pulse Ox 09/03/22 08:15 09/03/22 08:07 36.5 C 64 14 195/104 H 95 09/03/22 07:27 56 L 09/03/22 03:23 36.4 C L 57 L 18 210/100 H 212/109 H 97 09/03/22 01:08 63 09/02/22 23:51 57 L 177/98 H 09/02/22 23:28 36.4 C L 56 L 18 193/93 H 94 09/02/22 19:31 36.6 C 59 L 18 175/78 H 96 09/02/22 15:33 53 L 09/02/22 15:04 36.4 C L 53 L 18 156/86 H 97 09/02/22 11:03 36.6 C 55 L 18 148/75 H 96 O2 Del Method 09/03/22 08:15 Room Air 09/03/22 08:07 Room Air 09/03/22 07:27 09/03/22 03:23 Room Air 09/03/22 01:08 09/02/22 23:51 09/02/22 23:28 Room Air 09/02/22 19:31 Room Air 09/02/22 15:33 09/02/22 15:04 Room Air 09/02/22 11:03 Room Air Cardiovascular + regular rate and + regular rhythm Respiratory + respiratory effort normal Pre-Sedation Airway Assessment Smoking Status: Former smoker Hx Sleep Apnea: Yes Hx Difficult Intubation: No Short, Thick Neck: No Thyromental Distance: > or= 3.5 Finger Breadths Oral Cavity: + Chipped Teeth Mallampati Class: III ASA: ASA4 NPO Status Date of Last Intake of Fluids: 09/03/22 Time of Last Intake of Fluids: 08:00 Last Oral Intake of Fluids Comment: sip with meds Date of Last Intake of Solid Food: 09/02/22 Time of Last Intake of Solid Foods: 23:00 Procedure Planning Contraindications for Sedation: none Current Medications Reviewed: Yes Notes The planned sedation has been discussed with the patient. Informed Consent was obtained. I have identified the patient, determined the appropriateness of sedation and have assessed the patient immediately prior to the procedure. All medicine(s) and interventions are by my order.
--- NOTE | 2022-09-03 10:48 | Cardiac Catheterization ---
ACC Data: Electronic Health Records Specialist Cardiac Status Clinical evaluation leading to the procedure Diagnostic Physicians Name: Jak Manuel MD Closure Device Recommendations: Medical Therapy and/or Counseling Cardiac Cath Procedure Full Procedure Date September 03, 2022 Pre-Procedure Diagnosis Pre-Procedure Diagnosis: Non STEMI AUC Score AUC Score: 7 Post-Procedure Diagnosis Post-Procedure Diagnosis: Severe CAD Procedure(s) Performed Procedure(s) Performed: Coronary Angiography and Left Heart Cath Cord Maker Jak Manuel MD Manager House(s) none Estimated Blood Loss Estimated Blood Loss: 7cc Medication(s) Medication(s): Fentanyl, Heparin, Lidocaine 1%, Nicardipine, Nitroglycerin and Versed Summary of Findings procedure performed via left radial artery Normal LVEDP Severe LAD stenosis, proximal and distal to mid LAD stent. 99% mid OM1 Patenet RCA stent without obstructive disease Recommendations Recommendations: Medical Therapy and/or Counseling Specimens Specimens: None Disposition PCU I attest to the content of the Intraoperative Record and any orders documented therein. Any exceptions are noted below. PG Care Time/CCT Total # of Minutes Spent Total Time Spent with Patient: Total time spent is greater than 50% in coordination of care (as documented) at patient's floor/unit and/or counseling patient:
--- NOTE | 2022-09-03 10:48 | Post Anesthesia Assessment ---
Date of Service September 03, 2022 Post Sedation Assessment Vital Signs Temp Pulse Pulse Resp BP BP Pulse Ox 09/03/22 08:15 09/03/22 08:07 36.5 C 64 14 195/104 H 95 09/03/22 07:27 56 L 09/03/22 03:23 36.4 C L 57 L 18 210/100 H 212/109 H 97 09/03/22 01:08 63 09/02/22 23:51 57 L 177/98 H 09/02/22 23:28 36.4 C L 56 L 18 193/93 H 94 09/02/22 19:31 36.6 C 59 L 18 175/78 H 96 09/02/22 15:33 53 L 09/02/22 15:04 36.4 C L 53 L 18 156/86 H 97 09/02/22 11:03 36.6 C 55 L 18 148/75 H 96 O2 Del Method 09/03/22 08:15 Room Air 09/03/22 08:07 Room Air 09/03/22 07:27 09/03/22 03:23 Room Air 09/03/22 01:08 09/02/22 23:51 09/02/22 23:28 Room Air 09/02/22 19:31 Room Air 09/02/22 15:33 09/02/22 15:04 Room Air 09/02/22 11:03 Room Air Recovery Score Activity: Moves 4 extremities Respiration: Deep Breath/Cough Circulation: +/-20% PreAnes Value Consciousness: Arouseable (by name) Oxygen Saturation: > 92% On Room Air Discharge Sedation Level of Care: Fast Track Phase II Post Sedation Plan On clinical assessment, the patient appears to have tolerated the sedation without complications. Patient is recovering as anticipated. Patient will continue to be monitored by nursing and may be discharged when sedation discharge criteria are met per below protocol. Upon Completions of procedure up to 15 minutes continue every 5 minute vital signs and the P.A.R. score; then discharge to a Phase I or Fast Track to Phase II per the following guidelines: * Discharge Patient to appropriate Phase II area if PAR is 8 or greater or return to pre- procedure baseline. The post - procedure orders will be as directed. * If PAR score is less than 8 or not return to pre-procedure baseline then patient will follow Phase I monitoring till PAR is reached for Phase II. The Phase I may be done in procedure room or may call to secure a Phase I area. * If naloxone or flumazenil are used for reversal, hold in Phase I for continued monitoring from when last reversal dose was given for a minimum of 60 minutes or longer pending the nurse and/or physician discretion of patient condition before discharge to Phase II. Please call the Sedation Physician to re-evaluate and complete post-note for discharge to Phase II area. Do NOT discharge from procedure sedation or Phase 1 until post- sedation evaluation note is complete by procedure /sedation MD Sedation Discharge Instructions to be given to the patient at discharge to home.
[2022-09-03] MEDS ORDERED: LIDOCAINE 1% LOCAL 20 ML VIAL ONE (10:58)
[2022-09-03] MEDS: CLOPIDOGREL BISULFATE 75 MG TAB PO SCH (12:50)
--- NOTE | 2022-09-03 17:34 | Cardiology Progress Note ---
Date of Service September 03, 2022 Assessment & Plan (1) Acute non-ST elevation myocardial infarction (NSTEMI): (2) Coronary artery disease: (3) CKD (chronic kidney disease), stage III: (4) Hypercholesterolemia: (5) Subclavian artery stenosis: (6) Valvular heart disease: Plan 1. NSTEMI: No recurrent symptoms. Cardiac biomarkers have peaked and are trending downward. No intervention was performed today. Will continue the patient on dual anti-platelet therapy. Previously intolerant to statin therapy. Will discuss additional options with the patient for lowering lipids. 2. Coronary disease: He does have significant obstructive disease. No definite culprit lesion. Given the extensive and complex nature of his coronary disease will attempt medical therapy 1st. We will reserve a referral for advanced percutaneous intervention if medical therapy is not satisfactory. 3. Hyperlipidemia: Currently on high-dose rosuvastatin. Monitor for recurrent symptoms. Alternatives would be Zetia, PKS9 inhibitor or bempedoic acid 4. Valvular heart disease: He has an element of aortic and mitral valvular disease which is not severe. Not currently playing a role in his symptoms. Preserved LV systolic function. To be followed over time. 5. Chronic renal insufficiency: We will hydrate overnight in anticipation of coronary angiography tomorrow. 6. Right subclavian stenosis: Catheterization performed via left radial artery today. No symptoms of right arm claudication. 7. Palpitations: Likely related to occasional PVCs. Based on his coronary angiography today we will add long-acting nitrates. Will ambulate him tomorrow. In the absence of recurrent symptoms we will consider discharge with early follow-up and a low threshold for referral to determine if more advanced percutaneous intervention could be performed the setting of complex coronary disease Admission and Anticipated Discharge Date Admission Date: September 02, 2022 Subjective This afternoon the patient was feeling well. He was ambulatory to the bathroom and back. No significant symptoms at the radial access site. No recurrent symptoms of chest pain. No breathing difficulty or dizziness. Review of Systems Review of Systems: Per HPI. Occasional sense of palpitation without the associated dizziness that he has described previously Physical Exam Physical Exam: The patient is alert and oriented. Mood and affect appeared normal. He answered all questions appropriately. HEENT: Pupils are equal and reactive to light and accommodation. Extraocular movements are intact. The sclerae are anicteric. Neuro: Cranial nerves intact Lungs: Normal respiratory effort Cardiac: Heart demonstrates a regular rate and rhythm. Normal S1 and S2. Pulses: Good perfusion of both hands. Palpable radial pulses bilaterally. Extremities: There was no evidence of hypoperfusion. There is no cyanosis or clubbing. There is no edema. Skin: I did not appreciate any rashes on examination today. Results & Data Vital Signs (Past 12 Hours) Vital Signs Temp Pulse Pulse Resp BP Pulse Ox O2 Del Method 09/03/22 15:56 36.6 C 54 L 18 156/84 H 97 Room Air 09/03/22 14:03 56 L 18 144/73 H 95 Room Air 09/03/22 11:33 56 L 166/86 H 94 Room Air 09/03/22 11:03 54 L 137/82 09/03/22 10:48 36.4 C L 56 L 20 157/85 H 95 Room Air 09/03/22 11:07 55 L 18 169/88 H 96 Room Air 09/03/22 10:55 57 L 18 163/99 H 94 Room Air 09/03/22 08:15 Room Air 09/03/22 08:07 36.5 C 64 14 195/104 H 95 Room Air 09/03/22 07:27 56 L Laboratory Results Abnormal Lab Results 09/02/22 09/03/22 09/03/22 18:46 00:26 05:31 WBC 6.35 RBC 4.49 L Hgb 14.8 Hct 42.1 MCV 93.8 MCH 33.0 MCHC 35.2 RDW Std Deviation 45.0 RDW Coeff of Yolande 13.1 Plt Count 142 MPV 10.9 APTT PTT Ratio Sodium Potassium Chloride Carbon Dioxide Anion Gap BUN Creatinine Est Cr Clr Drug Dosing Est GFR ( Amer) Est GFR (Non-Af Amer) BUN/Creatinine Ratio Glucose Calcium Phosphorus Magnesium Troponin I High Sens 831.7 H* D 628.2 H* D Triglycerides Cholesterol LDL Cholesterol, Calc VLDL Cholesterol, Calc HDL Cholesterol Cholesterol/HDL Ratio 09/03/22 09/03/22 05:31 05:31 WBC RBC Hgb Hct MCV MCH MCHC RDW Std Deviation RDW Coeff of Yolande Plt Count MPV APTT 48.7 H* PTT Ratio 1.8 Sodium 135 L Potassium 4.0 Chloride 106 Carbon Dioxide 25 Anion Gap 4 BUN 26 H Creatinine 1.72 H Est Cr Clr Drug Dosing 36.3 Est GFR ( Amer) 42.0 Est GFR (Non-Af Amer) 36.2 BUN/Creatinine Ratio 15.1 Glucose 112 H Calcium 9.5 Phosphorus 2.8 Magnesium 1.9 Troponin I High Sens Triglycerides 91 Cholesterol 163 LDL Cholesterol, Calc 95 VLDL Cholesterol, Calc 18 HDL Cholesterol 50 Cholesterol/HDL Ratio 3.3 Diagnostic Findings Patient underwent coronary angiography today which did reveal patent stents in the right coronary artery, 99% stenosis of a large 1st OM branch distal to prior intervention, multiple foci of stenosis involving the LAD. Normal left ventricular filling pressures. PG Care Time/CCT Total # of Minutes Spent Total Time Spent with Patient: Total time spent is greater than 50% in coordination of care (as documented) at patient's floor/unit and/or counseling patient: Coding Level of Care Code 89697 SUB INP/OBS CARE 2/35MIN Diagnoses Acute non-ST elevation myocardial infarction (NSTEMI) I21.4 Coronary artery disease I25.10 CKD (chronic kidney disease), stage III N18.3 Hypercholesterolemia E78.00 Subclavian artery stenosis I77.1 Valvular heart disease I38
[2022-09-03] MEDS ORDERED: [UNRECOGNIZED DRUG - REMARK] ONE (22:59)
[2022-09-04 06:38] LABS: Hematocrit (blood only) 43.1 % (42.0-52.0); Hemoglobin 14.8 g/dl (14.0-18.0); Mean Corpuscular Hemoglobin 32.8 pg (25.0-34.0); Mean Corpuscular Hgb Conc 34.3 g/dL (32.0-36.0); Mean Corpuscular Volume 95.6 fL (80.0-100.0); Mean Platelet Volume 10.8 fL (9.4-12.4); Platelet Count 143 K/uL (130-400); RDW Coefficient of Variation 13.2 % (11.5-14.5); Red Blood Count 4.51 M/uL (4.70-6.10); White Blood Count 5.41 K/ul (4.8-10.8)
[2022-09-04 06:55] LABS: BUN Creatinine Ratio 15.2 (10-20); Calcium 9.5 mg/dl (8.6-10.3); Creatinine Clr Calc Pharmacy 34.7 ml/min; Est GFR (African American) 44.5 ml/min; Est GFR (Non-African American) 38.4 ml/min; Magnesium 1.8 mg/dl (1.7-2.4); Phosphorus 3.2 mg/dl (2.5-4.9); Potassium 4.1 mmol/L (3.5-5.1)
[2022-09-04 06:56] LABS: Partial Thromboplastin Time 27.5 Seconds (21.0-31.0)
[2022-09-04] MEDS: CLOPIDOGREL BISULFATE 75 MG TAB PO SCH (08:36)
[2022-09-04] MEDS: UMECLIDINIUM/VILANTEROL 62.5/25MCG 7 PUFFS/INHALER INH SCH (08:36)
[2022-09-04] MEDS: ROSUVASTATIN CALCIUM 20 MG TAB PO SCH (08:37)
[2022-09-04] MEDS: CHOLECALCIFEROL 1,000 UNITS 25 MCG TAB PO SCH (08:37)
[2022-09-04] MEDS: TAMSULOSIN HCL 0.4 MG CAP PO SCH (08:37)
[2022-09-04] MEDS: LOSARTAN POTASSIUM 25 MG TAB PO SCH (08:37)
[2022-09-04] MEDS: METOPROLOL SUCC 50MG EXT REL TAB PO SCH (08:37)
[2022-09-04] MEDS: ASPIRIN 81 MG ECTAB PO SCH (08:37)
[2022-09-04] MEDS ORDERED: ISOSORBIDE MONO EXTENDED REL 30 MG TABCR PO ONE (08:45)
--- NOTE | 2022-09-04 11:45 | Discharge Summary ---
Date of Service September 04, 2022 Admission HPI Per Admitting Provider José Miguel is an 82-year-old man with a history of coronary artery disease (NSTEMI's in 2010 in 2019, s/p drug-eluting stents x4), moderate aortic stenosis, hypertension, hyperlipidemia (noted allergies to simvastatin, atorvastatin, and pravastatin) COPD, and BPH, who presented to the hospital today with 2 episodes of chest pain with minimal exertion. Patient reports having first episode last night, an hour or 2 after having pizza for dinner. He noted the chest pain was squeezing, pressure-like, but on the right side of his chest. He took nitroglycerin tablets, which resolved the chest pain. Second episode occurred while he was sleeping, which woke him up. He describes this pain is more similar to his prior NSTEMI's (crushing, with radiation to scapula). He took another nitroglycerin tablet and came to the emergency room. In the ED, work-up was notable for an elevated troponin of 86.9. EKG was negative for ST changes. No cardiomegaly on CXR. Creatinine was elevated at 1.6, but this appears to be around his baseline due to his CKD3. He received a dose of aspirin 325 mg, and started on IV heparin plus bolus. On admission, patient denies any chest pain. He reports an episode of irregular heartbeats (like his heart paused between beats) with accompanying dizziness/presyncope. Both episodes resolved after taking SL nitroglycerin. Otherwise, he denies headache, dizziness, shortness of breath, abdominal pain, or pedal edema. Patient follows with Dr. Nazario. Review of last visit note on 04/30/2022 reveals patient had been doing well with stable exercise tolerance and stamina, was managed medically. Follow-up as scheduled for 6 months, with echocardiogram for routine surveillance of moderate artery stenosis. Admission Exam Per Admitting Provider General: No acute distress HEENT: PERRLA. Normal conjunctiva, anicteric sclera. Oropharynx normal. Respiratory: Normal respiratory effort, CTABL. Cardiovascular: Bradycardic. Regular rhythm. Systolic ejection murmur loudest at LUSB. No gallops or rubs. No pedal edema. GI: Soft abdomen with normal bowel sounds heard on auscultation. Nontender x4 quadrants Neuro: Alert and oriented x3. Principal Diagnosis NSTEMI Discharge Exam Constitutional: well appearing, no acute distress HEENT: normocephalic, no conjunctival injection CV: RRR, 2/6 systolic murmur noted, no LE edema Respiratory: CTA bilaterally. No rhonchi, wheezes, or crackles. No increased work of breathing MSK: no gross deformities noted Skin: warm, dry, no rashes Neuro: alert, oriented, no FND noted Psych: mood and affect congruent Discharge Data Allergies Allergy/AdvReac Type Severity Reaction Status Date / Time niacin Allergy Intermediate ITCHING Verified 09/02/22 02:54 Penicillins Allergy Intermediate RASH Verified 09/02/22 02:54 irbesartan [From Avapro] Allergy Unknown Unknown Verified 09/02/22 02:54 iron AdvReac Severe CHEST PAIN Verified 09/02/22 02:54 zinc AdvReac Severe CHEST PAIN Verified 09/02/22 02:54 atorvastatin AdvReac Intermediate INTOLERANT Verified 09/02/22 02:54 ezetimibe AdvReac Intermediate ACHE AND Verified 09/02/22 02:54 JOINT PAIN metoprolol AdvReac Intermediate AT HIGHER Verified 09/02/22 02:54 DOSAGE - MUSCLES ACHES pravastatin [From Pravachol] AdvReac Intermediate INTOLERANT Verified 09/02/22 02:54 simvastatin AdvReac Intermediate INTOLERANT Verified 09/02/22 02:54 Consultations 09/02/22 03:43 ED Decision to Admit Stat 09/02/22 05:43 Consult Cardiology Routine Procedures Performed Operation Date: 09/03/22 09:00 Actual Procedures p Cineradiography w/Routine Exam - Jak Manuel MD p Cath, Left with Cors and Vent - Jak Manuel MD Ordered Studies 09/03/22 10:06 CL Cath Imgs for PACS use only Stat Hospital Course (1) NSTEMI (non-ST elevated myocardial infarction): Pt is an 82 yo man with history of coronary artery disease (MT x2 s/p DUC in 2010 at proximal LCx, DUC x3 in 2019 at distal RCA, right PDA, mid PDA), moderate aortic stenosis, hypertension, hypercholesterolemia, COPD, and BPH who presented today with chest pain and admitted for management, further work-up of presumed NSTEMI. Elevated troponin/NSTEMI - History of aortic stenosis, CAD (2 NSTEMIs, both revealing >90% stenosis during cath) s/p DUC x4. - chest pressure with radiation to right scapula, troponin 86.9 on admission. Chest pain resolved with SL nitro tablets prior to arrival at the hospital. - EMMANUEL score = 5 points (age, hypertension, hypercholesterolemia, ASA use, 2 anginal episodes, positive troponin). - s/p aspirin 325 mg, Nitro-Bid 2%, low-dose IV heparin with bolus in the ED - echo showed no significant change from 08/2021, minimal progression of - troponin uptrending and has not peaked- continue to trend q6hr to peak - card consulted; recommend cath tomorrow (NPO at midnight w/ fluids ordered) - continue daily aspirin, plavix, and rosuvastatin 20 mg as tolerated (patient does have noted allergies to pravastatin, atorvastatin, and simvastatin, so low threshold for statin discontinuation/dose adjustment) --- Patient tolerating statin therapy, continue as tolerated, discussed supplementation with CoQ10 given patient's hx of intolerance d/t joint pains --- S/p Cath 09/03: No stent placement, Cardiology recommended medical management, advised DAPT, Imdur and cholesterol mgmt (continue statin as tolerated) --- Close follow up with Cardiology as outpatient scheduled prior to discharge Hypertension - Continue losartan 25 mg daily, metoprolol succinate 100 mg BPH with urinary obstruction - Continue tamsulosin 0.4 mg daily COPD - On daily maintenance Stiolto Respimat, as needed albuterol inhaler - Continue home regimen (2) Coronary artery disease: (3) Hypertension: (4) Benign localized hyperplasia of prostate with urinary obstruction: (5) Moderate aortic stenosis: Plan Code: Full code Dispo: Home FEN/GI: heart healthy diet DVT Prophylaxis: Ambulation (continue aspirin/Plavix) PT/OT: No Consults: Cardiology Total Time Total Time Spent Total Time Spent (In Minutes): 25 minutes spent seeing the patient, reviewing consultation, and documentation. Discharge Plan Discharge Items Patient Disposition: Home - Self-Care Reason For Visit: CHEST PAIN Discharge Diagnosis: NSTEMI Activity: Resume your previous activity Non-emergency contact: Primary Care Provider and Meat Soaker Call non-emergency contact if: you have any medication questions and your symptoms worsen Follow-up/Referrals: Julian Fernando MD [Physician] - 09/11/22 11:30 am Jak Howard MD [Primary Care Provider] - 09/06/22 11:00 am Diet: Heart Healthy Addtl Attending Provider Instructions: You were admitted to the hospital for evaluation of chest pain, you were found to be experiencing an NSTEMI (heart attack). You were subsequently evaluated by Cardiology who performed a Cardiac Catheterization. During this procedure your heart vessels were comprehensively evaluated, but there was no indication for placement of a stent. It was recommended that you be discharged home with medical management (aspirin, Plavix, and statin for cholesterol control). Cardiology recommended close follow up with their team and low threshold for additional intervention if your symptoms return or worsen. A discharge summary will be sent to your primary care physician to ensure continuity of care. Please bring this discharge summary with you to your next office appointment so that your provider can review it at that time. Follow-up appointments: - Make a follow-up appointment with your PCP within the next week. It is very important that you follow up with them shortly after discharge from the hospital. We have requested a follow-up appointment with your primary care physician within one week of discharge. Please call their office if you do not hear from them. - Our Case Management team has set up an appointment for you with Cardiology by the end of the week, please keep this appointment and continue to follow closely with your Meat Soaker. Medications: - New Medications: * Rosuvastatin 20 mg by mouth daily * Clopidogrel (Plavix) 75 mg by mouth daily * Isosorbide Mononitrate 30 mg by mouth daily Contact your Primary Care Provider if you experience: - Difficulty following your treatment plan or taking medications Call 911 or go to the emergency department if you experience: - Sudden, severe abdominal pain or nausea/vomiting - Severe chest pain, or chest pain that radiates (moves) to your jaw or arm - Sudden, severe shortness of breath or difficulty breathing It was a pleasure to be a part of your care, Dr. Marissa Corado Pending Studies at Discharge: No Stand-Alone Forms: [facility] [employer], Smoking Cessation Medications and DC Order Prescriptions: New clopidogrel 75 mg Tablet 75 mg PO QAM 30 Days Qty: 30 0RF rosuvastatin [Crestor] 20 mg Tablet 20 mg PO QAM 30 Days Qty: 30 0RF isosorbide mononitrate 30 mg tablet extended release 24 hr 30 mg PO DAILY Qty: 30 0RF Continued albuterol sulfate 90 mcg/actuation HFA aerosol inhaler 2 puff inhalation Q4H PRN (Reason: shortness of breath or wheezing) Qty: 6.7 5RF nitroglycerin 0.4 mg tablet, sublingual 0.4 mg SL Q5M PRN (Reason: chest pain) Qty: 25 0RF metoprolol succinate 100 mg tablet extended release 24 hr 100 mg PO DAILY Qty: 90 3RF losartan 50 mg tablet 25 mg PO DAILY Qty: 90 3RF tamsulosin 0.4 mg capsule 0.4 mg PO DAILY Qty: 90 3RF aspirin 81 mg Tablet,Delayed Release (Dr/Ec) 81 mg PO DAILY cholecalciferol (vitamin D3) [Vitamin D3] 50 mcg (2,000 unit) Capsule 50 mcg PO DAILY Stiolto Respimat 2.5-2.5 mcg/actuation Mist 2 puff INHALATION DAILY Discharge Orders: Discharge Order (Routine); Ordered 09/04/22 Ordered By: Marissa Corado Admission Data Admit Date/Time: 09/02/22 04:25 Attending Provider: Jacek Moffett Admit Provider: Isela Hawkins Primary Care Provider: Jak Howard Other Providers: Lars Vela ; Umer Rogel ; Watson Salmon ; Julian Fernando ; Erasmo He ; Ryan Chacon ; Konstantin Wynn ; Stephon Nazario Jr ; Milton Hayes ; Alice Lowe ; Radha Hairston ; Marcellus Richardson ; Jak Manuel ; Saud Pimentel ; Jaja Serrano ; Stefany Negron ; Geronimo Landaverde ; Ru Galvin ; Ryan Day V. Other Interventions: Discharge Summary Assessment (RN) Last Done: 09/04/22 14:40 Supervising Physician Co-Signing Physician Notes ATTESTATION I also saw the patient and confirmed fleming portions of the history and exam. I agree with the impression and plan in the resident documentation, and as summarized below. Upon our late morning exam, the patient had no complaints. Denied chest pain or shortness of breath. Reviewed the medication recommendations and he voiced understanding. EXAM 158/83, 57, 20, 36.3, 96% on room air Alert and oriented. No distress appreciated. Heart regular Lungs clear with nonlabored respirations DATA Labs BUN 25, creatinine 1.64 IMPRESSION & PLAN NSTEMI/moderate aortic stenosis/hypertension/CAD Appreciate cardiology consultation Plavix added, continue aspirin, continue rosuvastatin, Imdur added Follow-up discussed with cardiology and PCP Additional diagnosis and discharge instructions per resident documentation Resident Activity Tracking Resident Involvement: Resident Care Provided Care Provided: Adult Hospital Medicine
--- NOTE | 2022-09-04 11:59 | Cardiology Progress Note ---
Date of Service September 04, 2022 Assessment & Plan (1) Acute non-ST elevation myocardial infarction (NSTEMI): (2) Coronary artery disease: (3) CKD (chronic kidney disease), stage III: (4) Hypercholesterolemia: (5) Subclavian artery stenosis: (6) Valvular heart disease: Plan 1. NSTEMI: No recurrent symptoms. Markers trending downward. No acute lesions seen at angiography yesterday. Will discharge on Plavix in addition to aspirin 2. Coronary disease: He does have significant obstructive disease. No definite culprit lesion. Repeat intervention would be complicated and would likely require more advanced options at a tertiary care center. Given the absence of symptoms with ambulation at this time it would seem reasonable to discharge him on more aggressive medical therapy. He seems to be doing well with a daily long-acting nitrate. I think he could be discharged on Imdur 30. 3. Hyperlipidemia: Currently on high-dose rosuvastatin. Monitor for recurrent symptoms. Alternatives would be Zetia, PKS9 inhibitor or bempedoic acid 4. Valvular heart disease: He has an element of aortic and mitral valvular disease which is not severe. Not currently playing a role in his symptoms. Preserved LV systolic function. To be followed over time. 5. Chronic renal insufficiency: Renal function stable. Minimal contrast employed. Pre and post hydration also performed. 6. Right subclavian stenosis: Catheterization performed via left radial artery today. No symptoms of right arm claudication. 7. Palpitations: Likely related to occasional PVCs. Given the absence of recurrent symptoms and reasonable activity, I think would be fine to discharge him with close follow-up. I would add Plavix 75 mg daily to his regimen in addition to long-acting isosorbide mononitrate 30 mg. Continue rosuvastatin, aspirin and metoprolol. Admission and Anticipated Discharge Date Admission Date: September 02, 2022 Subjective This morning patient claimed he feeling well. He reported ambulating around the [place] several times last evening and again this morning without symptoms. No significant breathing difficulty. No recurrence of his presenting chest discomfort. No dizziness or lightheadedness. No discomfort at the left radial access site. Review of Systems Review of Systems: Per HPI Physical Exam Physical Exam: The patient is alert and oriented. Mood and affect appeared normal. He answered all questions appropriately. HEENT: Pupils are equal and reactive to light and accommodation. Extraocular movements are intact. The sclerae are anicteric. Neuro: Cranial nerves intact Lungs: Normal respiratory effort Cardiac: Heart demonstrates a regular rate and rhythm. Normal S1 and S2. Crescendo systolic murmur Pulses: Good perfusion of both hands. Palpable radial pulses bilaterally. Extremities: There was no evidence of hypoperfusion. There is no cyanosis or clubbing. There is no edema. Skin: I did not appreciate any rashes on examination today. Results & Data Vital Signs (Past 12 Hours) Vital Signs Temp Pulse Pulse Resp BP BP Pulse Ox 09/04/22 11:23 36.3 C L 57 L 20 145/74 H 96 09/04/22 08:00 54 L 09/04/22 07:20 36.7 C 64 20 158/83 H 95 09/04/22 03:45 36.5 C 57 L 18 169/87 H 95 O2 Del Method 09/04/22 11:23 Room Air 09/04/22 08:00 09/04/22 07:20 Room Air 09/04/22 03:45 Room Air Laboratory Results Abnormal Lab Results 09/04/22 09/04/22 09/04/22 05:39 05:39 05:39 WBC 5.41 RBC 4.51 L Hgb 14.8 Hct 43.1 MCV 95.6 MCH 32.8 MCHC 34.3 RDW Std Deviation 47.0 H RDW Coeff of Yolande 13.2 Plt Count 143 MPV 10.8 APTT 27.5 PTT Ratio 1.0 Sodium 137 Potassium 4.1 Chloride 106 Carbon Dioxide 25 Anion Gap 6 BUN 25 H Creatinine 1.64 H Est Cr Clr Drug Dosing 34.7 Est GFR ( Amer) 44.5 Est GFR (Non-Af Amer) 38.4 BUN/Creatinine Ratio 15.2 Glucose 89 Calcium 9.5 Phosphorus 3.2 Magnesium 1.8 PG Care Time/CCT Total # of Minutes Spent Total Time Spent with Patient: Total time spent is greater than 50% in coordination of care (as documented) at patient's floor/unit and/or counseling patient: Coding Level of Care Code 29978 SUB INP/OBS CARE 2/35MIN Diagnoses Acute non-ST elevation myocardial infarction (NSTEMI) I21.4 Coronary artery disease I25.10 CKD (chronic kidney disease), stage III N18.3 Hypercholesterolemia E78.00 Subclavian artery stenosis I77.1 Valvular heart disease I38
== END 2022-09-04 15:00 | disposition home or self-care (01) | DRG 281 ==
LOC: ED 02:13 → SUATTDRO 04:25 → 2W 04:25 → 4W 09-03 11:14

== ENCOUNTER 2022-10-25 09:56 | Observation (INO) ==
[2022-10-25] MEDS ORDERED: ASPIRIN CHEW 324 MG PO STA (10:24)
--- NOTE | 2022-10-25 10:29 | Emergency Department Note ---
History of Present Illness General Chief complaint: Chest Pain Stated complaint: CHEST PAIN, L ARM PAIN Time Seen by Provider: 10/25/22 10:11 Source: patient, family ( was at the bedside), RN notes reviewed and old records reviewed (I have reviewed his cardiology note) Mode of arrival: ambulatory Limitations: no limitations History of Present Illness Maximum Pain Intensity: 4 This patient is a 2-year-old male who comes in after having left arm pain and some mild chest discomfort as well. He has a long history of cardiac disease and in fact had a ID August 31 of this year. He is scheduled have a [place] stress test but has not had it yet. When he had his cardiac event they did not do any stenting. He is on Plavix. He took 1 baby aspirin this morning is normal. He felt a little tingling in his left arm yesterday around 2:00 in the morning woke up with significant pain it went away after a few minutes and came back at 6:00 in the morning and then again at 8:00 it only lasted for a few minutes although at 8:00 he took 2 nitroglycerin and second was 15 minutes after the first he estimates. He feels okay at present said he has some slight chest heaviness associated with it but no shortness of breath no diaphoresis no nausea vomiting no recent illness fever chills or trauma. When he had his previous cardiac events he had more chest pain Home Medications Medication Instructions Recorded Confirmed Type albuterol sulfate 90 mcg/actuation 2 puff inhalation Q4H PRN 09/05/20 10/25/22 Rx aerosol inhaler shortness of breath or wheezing #6.7 grams nitroglycerin 0.4 mg sublingual 0.4 mg sublingual Q5M PRN chest 04/18/21 10/25/22 Rx tablet pain #25 tabs metoprolol succinate 100 mg 100 mg PO DAILY #90 tabs 11/08/21 10/25/22 Rx tablet,extended release 24 hr losartan 50 mg tablet 25 mg PO DAILY #90 tabs 06/04/22 10/25/22 Rx tamsulosin 0.4 mg capsule 0.4 mg PO DAILY #90 caps 08/06/22 10/25/22 Rx aspirin 81 mg tablet,delayed 81 mg PO DAILY 09/02/22 10/25/22 History release cholecalciferol (vitamin D3) 50 50 mcg PO DAILY 09/02/22 10/25/22 History mcg (2,000 unit) capsule (Vitamin D3) tiotropium 2.5 mcg-olodaterol 2.5 2 puff inhalation DAILY 09/02/22 10/25/22 History mcg/actuation mist for inhalation (Stiolto Respimat) coenzyme Q10 [Co Q-10] 0 mg PO BID 09/11/22 10/25/22 History isosorbide mononitrate 30 mg 30 mg PO DAILY #30 tabs 10/01/22 10/25/22 Rx tablet,extended release 24 hr rosuvastatin 20 mg tablet (Crestor) 20 mg PO QAM 90 days #30 tabs 10/01/22 10/25/22 Rx clopidogrel 75 mg tablet 75 mg PO DAILY 10/25/22 10/25/22 History Allergies Allergy/AdvReac Type Severity Reaction Status Date / Time niacin Allergy Intermediate ITCHING Verified 09/27/22 14:55 Penicillins Allergy Intermediate RASH Verified 09/27/22 14:55 irbesartan [From Avapro] Allergy Unknown Unknown Verified 09/27/22 14:55 iron AdvReac Severe CHEST PAIN Verified 09/27/22 14:55 zinc AdvReac Severe CHEST PAIN Verified 09/27/22 14:55 atorvastatin AdvReac Intermediate INTOLERANT Verified 09/27/22 14:55 ezetimibe AdvReac Intermediate ACHE AND Verified 09/27/22 14:55 JOINT PAIN metoprolol AdvReac Intermediate AT HIGHER Verified 09/27/22 14:55 DOSAGE - MUSCLES ACHES pravastatin [From Pravachol] AdvReac Intermediate INTOLERANT Verified 09/27/22 14:55 simvastatin AdvReac Intermediate INTOLERANT Verified 09/27/22 14:55 Past Med/Surg History Medical History Acute non-ST elevation myocardial infarction (NSTEMI) Allergic rhinitis Aortic valve sclerosis Benign localized hyperplasia of prostate with urinary obstruction Bilateral tinnitus Carotid artery plaque Coronary artery disease Generalized osteoarthritis Hearing loss Hypercholesterolemia Moderate aortic stenosis Sensorineural hearing loss (SNHL) of both ears Subclavian artery stenosis Surgical History H/O hernia repair H/O wrist surgery History of coronary artery stent placement S/P appendectomy S/P rotator cuff repair S/P thoracotomy Family History Father Colorectal cancer about 78yo Mother about age 92 Brother accidental Brother Myocardial infarction Sister Obese Sister Hypertension Other Family history non-contributory Stroke Denies family history of Ovarian cancer Prostate cancer Coronary heart disease Breast cancer Social History Smoking Status: Former smoker Second Hand Exposure: No; Do You Dip or Chew Tobacco: No; Tobacco Cessation Education Requested by Patient: No Hx Alcohol Use: Yes Alcohol type: beer Alcohol Intake Frequency: Monthly or Less Hx Substance Use: No Preferred Language: [place]uran Communication Ability: Effective Visual Impairment: No Limitations Hearing Ability: Use of Hearing Aid Pneumatic Deicer Inspector Required: No Beliefs That Will Affect Care: None marital status: Current Living Situation: Spouse Current Living Situation Comment: home w/ current occupational status: 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 How many Children do You have: 3 Other Information That Helps Us Care for You: No Feels Safe at Home: Yes Safety Concerns: Feels Safe At This Time Childhood Exposure to Second-Hand Smoke: Yes Diet: regular Diet Comment: GOLO caffeine: Yes during the past year weight has: decreased > 10 lbs Dental Care, Regularly: Yes Physical Activity Frequency: 1-2 Times per Week Physical Activity Frequency Comment: walk Seatbelt Use: always Sunscreen Use: No Assistive Devices: Contacts, CPAP and Hearing Aid - Bilateral Review of Systems A total of 10 systems reviewed and were otherwise negative Physical Exam Vital Signs Vital Signs - 24 hr 10/25/22 10:01 10/25/22 10:14 10/25/22 10:25 Temperature 36.6 C Temperature Source Temporal Artery Scan Pulse Rate 52 L 55 L Pulse Rate [Apical] 64 Pulse Rhythm Regular Pulse Strength Normal Respiratory Rate 18 20 Respiratory Effort / Characteristics Non-Labored Non-Labored Respiratory Depth Normal Normal Respiratory Pattern Regular Blood Pressure 163/91 H Blood Pressure [Right Arm] 185/96 H Blood Pressure Mean 115 Blood Pressure Mean [Right Arm] 125 Pulse Oximetry 98 98 Oxygen Delivery Method Room Air Room Air Sepsis Recent Fever Within 48 Hours No Sepsis New/Unexplained Change in Mental Status No Sepsis Action Taken by Nursing No Action Required 10/25/22 10:27 10/25/22 11:11 Temperature Temperature Source Pulse Rate 56 L 51 L Pulse Rate [Apical] Pulse Rhythm Regular Pulse Strength Respiratory Rate 20 Respiratory Effort / Characteristics Respiratory Depth Respiratory Pattern Blood Pressure 150/79 H Blood Pressure [Right Arm] Blood Pressure Mean 102 Blood Pressure Mean [Right Arm] Pulse Oximetry 98 94 Oxygen Delivery Method Room Air Room Air Sepsis Recent Fever Within 48 Hours Sepsis New/Unexplained Change in Mental Status Sepsis Action Taken by Nursing General: Well developed well nourished older male who appears in no acute distress, breathing comfortably on room air. Normal speech HEENT: Normal cephalic atraumatic. Pupils are equal round and reactive to light. Extraocular movements are intact. Oropharynx is pink with moist mucous membranes. No swelling of the mouth lips or tongue. Neck: Supple with a midline trachea. No meningeal signs or stiffness, no JVD or bruits. No Stridor. Chest: Clear to auscultation bilaterally. No wheezes or rhonchi. No increased work of breathing. Heart: Regular rate and rhythm without murmurs or gallops. Abdomen: Soft nontender, nondistended without rebound guarding or rigidity. Extremities: No cyanosis clubbing or edema. No calf tenderness or assymetry Spine/Back. Non tender to palpation. No CVA tenderness Skin: Good turgor without rashes. Neurologic exam: Cranial nerves two through 12 are intact. Motor and sensation are intact and symmetrical throughout. Course Administered Medications Heparin Sodium/Dextrose (Heparin Sodium/Dextrose) 25,000 units in 500 mls @ 19 mls/hr IV [facility]H [facility]; Protocol Stop: 11/24/22 12:59 Last Admin: 10/25/22 13:03 Dose: 950 units/hr, 19 mls/hr Documented By: AB Co-signed By: ALY Potassium Chloride/Dextrose/Sod Cl (D5nss + 20meq Kcl) 20 meq in 1,000 mls @ 120 mls/hr IV .Q8H20M [facility] Stop: 11/24/22 14:44 Last Admin: 10/25/22 15:50 Dose: 120 mls/hr Documented By: JESSE Discontinued Medications Aspirin (Aspirin Chew 324 Mg) 324 mg PO NOW STA Stop: 10/25/22 10:25 Last Admin: 10/25/22 10:27 Dose: 324 mg Documented By: ALY Heparin Sodium (Porcine) (Heparin Sod (Porcine) 1000 Unit/Ml) 4,000 units IV NOW ONE Stop: 10/25/22 12:50 Last Admin: 10/25/22 13:01 Dose: 4,000 units Documented By: Co-signed By: ALY Heparin Sodium/Dextrose (Heparin Iv Adult Wt-Based Low-Dose With Bolus Protocol) 1 each IV Q30M [facility]; Protocol Stop: 11/24/22 12:39 Last Admin: 10/25/22 13:11 Dose: 1 each Documented By: Medical Decision Making Differential Diagnosis Acute coronary syndrome, arrhythmia, CHF, vascular, neurologic, metabolic, infectious Medical Records Attestation: I reviewed the patient's medical records. Home Medications Current Medication List: was personally reviewed by me Laboratory Data Attestation: I reviewed the patient's lab results. 10/25/22 10:17 10/25/22 10:17 Lab Results 10/25/22 10/25/22 10/25/22 Range/Units 10:17 10:17 10:17 WBC 6.65 (4.8-10.8) K/ul RBC 4.26 L (4.70-6.10) M/uL Hgb 14.0 (14.0-18.0) g/dl Hct 41.7 L (42.0-52.0) % MCV 97.9 (80.0-100.0) fL MCH 32.9 (25.0-34.0) pg MCHC 33.6 (32.0-36.0) g/dL RDW Std Deviation 47.6 H (36.4-46.3) fL RDW Coeff of [place]ol[place] 13.2 (11.5-14.5) % Plt Count 155 (130-400) K/uL MPV 10.7 (9.4-12.4) fL Immature Gran % (Auto) 0.3 % Neut % (Auto) 65.9 % Lymph % (Auto) 21.7 % [place] % (Auto) 8.0 % Eos % (Auto) 3.3 % Baso % (Auto) 0.8 % Neut # (Auto) 4.39 (1.40-6.50) K/uL Lymph # (Auto) 1.44 (1.2-3.4) K/uL [place] # (Auto) 0.53 (0.11-0.59) K/uL Eos # (Auto) 0.22 (0-0.50) K/uL Baso # (Auto) 0.05 (0-0.2) K/uL Immature Gran # (Auto) 0.02 (0.01-0.20) K/uL PT 10.9 (9.0-12.0) Seconds INR 1.0 (0.9-1.1) APTT 27.3 (21.0-31.0) Seconds PTT Ratio 1.0 Sodium 137 (136-145) mmol/L Potassium 4.5 (3.5-5.1) mmol/L Chloride 104 (98-107) mmol/L Carbon Dioxide 28 (21-32) mmol/L Anion Gap 5 (3-11) BUN 21 (6-23) mg/dl Creatinine 1.50 H (0.6-1.4) mg/dl Est Cr Clr Drug Dosing 41.9 ml/min Est GFR ( Amer) 49.5 ml/min Est GFR (Non-Af Amer) 42.7 ml/min BUN/Creatinine Ratio 14.0 (10-20) Glucose 130 H (70-99(Fasting)) mg/dl Calcium 9.9 (8.6-10.3) mg/dl Total Bilirubin 0.8 (0.2-1.0) mg/dl AST 18 (13-39) U/L ALT 9 (7-52) U/L Alkaline Phosphatase 34 (34-104) U/L Troponin I High Sens 553.4 H* (0-20) pg/ml Total Protein 7.1 (6.0-8.3) gm/dl Albumin 4.1 (3.4-5.0) gm/dl Globulin 3.0 (2.5-4.0) gm/dl Albumin/Globulin Ratio 1.4 (0.9-2) Lipase 42 (11-82) U/L SARS-CoV-2, RNA, NAAT (NEGATIVE) 10/25/22 10/25/22 Range/Units 10:28 12:47 WBC (4.8-10.8) K/ul RBC (4.70-6.10) M/uL Hgb (14.0-18.0) g/dl Hct (42.0-52.0) % MCV (80.0-100.0) fL MCH (25.0-34.0) pg MCHC (32.0-36.0) g/dL RDW Std Deviation (36.4-46.3) fL RDW Coeff of [place] (11.5-14.5) % Plt Count (130-400) K/uL MPV (9.4-12.4) fL Immature Gran % (Auto) % Neut % (Auto) % Lymph % (Auto) % [place] % (Auto) % Eos % (Auto) % Baso % (Auto) % Neut # (Auto) (1.40-6.50) K/uL Lymph # (Auto) (1.2-3.4) K/uL [place] # (Auto) (0.11-0.59) K/uL Eos # (Auto) (0-0.50) K/uL Baso # (Auto) (0-0.2) K/uL Immature Gran # (Auto) (0.01-0.20) K/uL PT (9.0-12.0) Seconds INR (0.9-1.1) APTT (21.0-31.0) Seconds PTT Ratio Sodium (136-145) mmol/L Potassium (3.5-5.1) mmol/L Chloride (98-107) mmol/L Carbon Dioxide (21-32) mmol/L Anion Gap (3-11) BUN (6-23) mg/dl Creatinine (0.6-1.4) mg/dl Est Cr Clr Drug Dosing ml/min Est GFR ( Amer) ml/min Est GFR (Non-Af Amer) ml/min BUN/Creatinine Ratio (10-20) Glucose (70-99(Fasting)) mg/dl Calcium (8.6-10.3) mg/dl Total Bilirubin (0.2-1.0) mg/dl AST (13-39) U/L ALT (7-52) U/L Alkaline Phosphatase (34-104) U/L Troponin I High Sens 587.8 H* (0-20) pg/ml Total Protein (6.0-8.3) gm/dl Albumin (3.4-5.0) gm/dl Globulin (2.5-4.0) gm/dl Albumin/Globulin Ratio (0.9-2) Lipase (11-82) U/L SARS-CoV-2, RNA, NAAT NEGATIVE (NEGATIVE) Imaging Data Attestation: I personally reviewed and interpreted this imaging study as follows: My Impression: Chest x-rayno acute infiltrate, failure, pneumothorax seen. Chronic interstitial disease Radiologist's Impression: Chest X-Ray 10/25/22 10:24 XR chest 1V portable HISTORY: 82 years-old Male Chest pain, nonspecific COMPARISON: 09/02/2022 TECHNIQUE: AP view of the chest FINDINGS: Cardiac silhouette is enlarged. Chronic interstitial coarsening is unchanged ill-defined opacity of the left midlung. No pneumothorax, large pleural effusion or overt pulmonary edema. Unchanged blunting of the costophrenic angles. Bones appear grossly intact. IMPRESSION: Stable appearance of the chest. No acute process. ACT 112: Negative or not required by law. The above report was generated using voice recognition software. It may contain grammatical, syntax or spelling errors. Electronically signed by: Sukumar Mccarthy M.D. 10/25/2022 10:43 AM ECG Data Attestation: I personally reviewed and interpreted this ECG as follows: Indication: + chest pain Rate (beats per minute): 53 Rhythm: + sinus bradycardia ECG Intervals/blocks: + Normal QRS, + Normal QT and + Normal [place] ECG [place]: + Normal ECG ST segments: + repolarization abnormalities ECG Findings: + Other (There were T wave inversions laterally and old inferior infarct changes); no PACs or no PVCs Comparison ECG Date: from (09/02/22) Change: no significant change Additional Comments: EKG #2: Sinus bradycardia rate of 49. LVH. No acute EKG changes compared EKG #1. There is some repolarization abnormalities as well as lateral T wave abnormalities which is unchanged. MDM Narrative This patient comes in as described above. He was placed on a hospital monitor in room 812. He is here for treatment evaluation of episode of chest and arm pain. he is feeling better at present .I did give him a chewable aspirin 324 mg. His EKG is abnormal appearing however it is unchanged compared to old. He feels good at present. Extensive cardiac work-up was done given his extensive cardiac history. He was placed on a hospital monitor, multiple blood testing was obtained, chest x-ray and EKG was obtained. He was reassessed frequently. Chest x-ray was unremarkable and does not suggest congestive heart failure, pneumonia, pneumothorax. He has remained stable. He has no significant electrolyte or metabolic abnormalities. Creatinine is mildly elevated at 1.5. He has no white count or fever to suggest infection. Is no significant anemia. His troponin came back significantly elevated in the 550 range. I got a second EKG and is unchanged compared to the first he remains asymptomatic during his entire ER stay he has no chest pain or arm pain like he did. Reviewing his cath report he has extensive LAD and circumflex lesions that were being treated medically. He was due for a stress test which she has yet to get. I am concerned that he may have an another acute cardiac event given his significant elevated troponin. Fortunately, he is asymptomatic at present. I did discuss case at length with Dr. Hayes, the manager division on-call. He agrees with the plan and suggested that we him on heparin. I discussed the case in consultation with Dr. Shafer who will be admitting him from the [facility] standpoint and he is going to put the heparin orders in. Continuous cardiac monitoring: Orders placed in EMR for continuous cardiac monitoring. Upon my evaluation he was noted to be in sinus bradycardia with a rate of 55 Impression & Plan Coronary artery disease, Chest pain, Antiplatelet or antithrombotic long-term use, Arm pain, left, Lab test negative for COVID-19 virus, ACS (acute coronary syndrome), Elevated troponin Discharge Plan Visit Data Chief Complaint: Chest Pain Stated Complaint: CHEST PAIN, L ARM PAIN ED Provider: Rodrigo Farias Discharge Problem: Coronary artery disease, Chest pain, Antiplatelet or antithrombotic long-term use, Arm pain, left, Lab test negative for COVID-19 virus, ACS (acute coronary syndrome), Elevated troponin Patient Disposition: Admitted As Inpatient Discharge Instructions Interventions: ED Discharge Assessment Last Done: 10/25/22 13:55
--- NOTE | 2022-10-25 10:45 | XRay Report ---
XR chest 1V portable HISTORY: 82 years-old Male Chest pain, nonspecific COMPARISON: 09/02/2022 TECHNIQUE: AP view of the chest FINDINGS: Cardiac silhouette is enlarged. Chronic interstitial coarsening is unchanged ill-defined opacity of t he left midlung. No pneumothorax, large pleural effusion or overt pulmonary edema. Unchanged blunting of the costophrenic angles. Bones appear grossly intact. IMPRESSION: Stable appearance of the chest. No acute process. ACT 112: Negative or not required by law. The above report was generated using voice recognition software. It may contain grammatical, syntax o r spelling errors. Electronically signed by: Sukumar Mccarthy M.D. 10/25/2022 10:43 AM
[2022-10-25 10:46] LABS: Basophils # (auto) 0.05 K/uL (0-0.2); Basophils % (auto) 0.8 %; Eosinophils # (auto) 0.22 K/uL (0-0.50); Eosinophils % (auto) 3.3 %; Hematocrit (blood only) 41.7 % (42.0-52.0); Immature Granulocytes # (auto) 0.02 K/uL (0.01-0.20); Immature Granulocytes % (auto) 0.3 %; Lymphocytes # (auto) 1.44 K/uL (1.2-3.4); Lymphocytes % (auto) 21.7 %; Mean Corpuscular Hemoglobin 32.9 pg (25.0-34.0); Mean Corpuscular Hgb Conc 33.6 g/dL (32.0-36.0); Mean Corpuscular Volume 97.9 fL (80.0-100.0); Mean Platelet Volume 10.7 fL (9.4-12.4); Monocytes # (auto) 0.53 K/uL (0.11-0.59); Neutrophils # (auto) 4.39 K/uL (1.40-6.50); Neutrophils % (auto) 65.9 %; Platelet Count 155 K/uL (130-400); RDW Coefficient of Variation 13.2 % (11.5-14.5); RDW Standard Deviation 47.6 fL (36.4-46.3); Red Blood Count 4.26 M/uL (4.70-6.10); White Blood Count 6.65 K/ul (4.8-10.8)
[2022-10-25 11:01] LABS: Partial Thromboplastin Time 27.3 Seconds (21.0-31.0); Prothrombin Time 10.9 Seconds (9.0-12.0)
[2022-10-25 11:27] LABS: Albumin Level 4.1 gm/dl (3.4-5.0); Bilirubin,Total 0.8 mg/dl (0.2-1.0); Calcium 9.9 mg/dl (8.6-10.3); Potassium 4.5 mmol/L (3.5-5.1)
[2022-10-25 11:33] LABS: Albumin Globulin Ratio 1.4 (0.9-2); Creatinine Clr Calc Pharmacy 41.9 ml/min; Est GFR (African American) 49.5 ml/min; Est GFR (Non-African American) 42.7 ml/min; Total Protein 7.1 gm/dl (6.0-8.3)
[2022-10-25 11:38] LABS: Troponin I High Sensitivity 553.4 pg/ml (0-20)
--- NOTE | 2022-10-25 12:18 | History & Physical Report ---
Date of Service October 25, 2022 Assessment & Plan (1) Chest pain: Plan: Chest pain/arm pain, history of NSTEMI Patient with several hours of left upper arm numbness/pain with some radiation into his chest on second episode. Episodes lasted for at least 15-30 minutes. Denies shortness of breath/diaphoresis with these. He has an elevated troponin of 553 on admission. EKG without acute changes. No arm weakness, no other focal neuro symptoms. Symptoms are completely resolved at time of bedside assessment. Prior history of PCI to LAD/circumflex/RCA. DAPT continued, received a full dose aspirin on admission NSTEMI 08/31/2022. Initially presented as retrosternal chest pain for over 8 hours which resolved while in the ER was noted to have basal inferior hypokinesis in ER. Cardiac cath at that time showed left circumflex marginal stenosis. LAD with moderate to severe proximal stenosis. Was recommended to continue dual antiplatelet therapy for 1 year, isosorbide mononitrate, rosuvastatin. Was recommended to represent to the ER/call cardiology if he has recurrent anginal symptoms and would need to consider revascularization at that time. On admission troponin is elevated at 553, trend pending COVID-negative Lipase negative Baseline creatinine around 1.51.7, admitting creatinine 1.5 Chest x-ray: Stable, no acute findings EKG 10:08 AM: Sinus bradycardia, no acute ST segment changes. Repeat 11:45 AM similar. No significant change from prior EKG in August. TTE 09/02/2022: LV SF normal, mild concentric LVH, mild LAD, moderate AR, moderate AAS, mild MR, RVSP normal. Cardiac cath 09/03/22: Left main normal in size and caliber. LAD with midportion stent with minimal restenosis, 70% stenosis of ostium of first diagonal, 70% stenosis prior to stent. 60 to 70% mid vessel disease, 50% disease at second diagonal, more distal 70% stenosis. Left circumflex nondominant, stent in proximal portion with minimal restenosis. A large first OM with 99% subtotal occlusion at midportion. RCA with proximal stent, minimal in-stent restenosis. Luminal irregularities without discrete stenosis. - Tolerating rosuvastatin well wtih CoQ10. Continued. Echo for interval wall motion change pending Case was reviewed with cardiology by ER prior to admission. Recommended for troponin trend, cardiology consult, and heparinization Shoulder pain Given associated with chest pain, elevated troponin, and cardiac history most likely cardiac as noted above Pain did occur at night and was positional in the setting of patient laying on his arm. DDx includes nerve compression/MSK Patient does have a history of 50% stenosis in right subclavian artery with no evidence of steal on 2020 exam. Radial pulses intact bilaterally, neurovascularly intact at bedside evaluation. Bilateral blood pressures pending CKD, chronic, stable Baseline creatinine around 1.51.7 Admitting creatinine 1.5. At baseline. No evidence of PALLAVI. Trend creatinine daily Impaired fasting glucose. A1c pending. Admitting BSG 130 Glucose checks AC/at bedtime A1c pending Weight-based SSI added, consistent carb/heart healthy diet COPD, chronic, stable - Stiolto works well at home 2 puffs BID. - No recent wheezing/flares - COntinue inhalers/formulary equivalent - Albuterol q4h PRN INH No wheezing, no evidence of acute exacerbation on admission Hx tracheotomy 1971, healed - Reports had a spontaneous empyema and illness requiring extensive surgery, hospitalization, and tracheostomy. Since this gets some breathing trouble if he bends over sharply or chin to chest, but this has been chronic since 1970s with no recent change. No change in this, no acute management Hyperlipidemia Patient is intolerant to multiple statins, but is tolerating rosuvastatin and co-Q10. Continue these. CRISTIAN Continue CPAP BPH Continue tamsulosin, bladder scan as needed DVT prophylaxis: Heparinized Disposition: PCU for suspected NSTEMI monitoring CODE STATUS: Full code (2) Coronary artery disease: (3) Hypertension: (4) COPD (chronic obstructive pulmonary disease): (5) CKD (chronic kidney disease), stage III: (6) Subclavian artery stenosis: (7) Restrictive lung disease: History of Present Illness Primary Care Provider: Jak Howard MD José Miguel Coyne is an 82-year-old male with past medical history of CAD, CKD 3, CO PD, hypertension, impaired fasting glucose, aortic stenosis who presents with an episode of left arm pain and chest discomfort. History of [facility] 08/31/2022. Pending nuclear stress test as outpatient, feels his pain worsened prior to being able to do this. Reports yesterday evening L arm was completely numb from the elbow to the arm pit and had tingling. Woke him up, rolled over, and seemed to get better. 6am felt similar while laying on it but had pain return with some chest pressure. Got out of bed around 8am and he took 1x nitro around 8:30a and another around 9am and the pain did not get any better or worse. Continued at ~8/10 and going into the armpit on his left side. On arrival he got 4x aspirin and pain completely resolved. He has no pain at the time of bedside assessment. No weakness. No confusion. NO sweating durign the episode. No shortness of breath during the episode. No other extremity weakness, no facial droop. Speech was normal. Muñoz snoted since august 'I just peter out quicker.' Greatly reduced exercise tolerance and gets tired very easily, but no pain. Denies exertional angina in the preceding months. He denies orthopnea, but notes that he sleeps with a CPAP and is more comfortable on the side and generally does not sleep laying on his back. Did have a tracheotomy in the 1970s and notes that if he lays on his back or sometimes bends over in a certain position it makes it very hard for him to breathe, this is chronic with no recent change. Denies weight gain. No leg edema He took all his morning medications. No history of bleeding problems. Does bruise a little easy. No hx blood clots. Feels completely back to his baseline after receiving aspirin. Medical History: Reviewed Medications: Reviewed Surgical History: Reviewed Family history: Reviewed Allergies: Reviewed Social History: No tobacco use. Rare social etoh use. Code Status: Full Code Allergies Allergy/AdvReac Type Severity Reaction Status Date / Time niacin Allergy Intermediate ITCHING Verified 09/27/22 14:55 Penicillins Allergy Intermediate RASH Verified 09/27/22 14:55 irbesartan [From Avapro] Allergy Unknown Unknown Verified 09/27/22 14:55 iron AdvReac Severe CHEST PAIN Verified 09/27/22 14:55 zinc AdvReac Severe CHEST PAIN Verified 09/27/22 14:55 atorvastatin AdvReac Intermediate INTOLERANT Verified 09/27/22 14:55 ezetimibe AdvReac Intermediate ACHE AND Verified 09/27/22 14:55 JOINT PAIN metoprolol AdvReac Intermediate AT HIGHER Verified 09/27/22 14:55 DOSAGE - MUSCLES ACHES pravastatin [From Pravachol] AdvReac Intermediate INTOLERANT Verified 09/27/22 14:55 simvastatin AdvReac Intermediate INTOLERANT Verified 09/27/22 14:55 Home Medications Medication Instructions Recorded Confirmed Type albuterol sulfate 90 mcg/actuation 2 puff inhalation Q4H PRN 09/05/20 10/25/22 Rx aerosol inhaler shortness of breath or wheezing #6.7 grams nitroglycerin 0.4 mg sublingual 0.4 mg sublingual Q5M PRN chest 04/18/21 10/25/22 Rx tablet pain #25 tabs metoprolol succinate 100 mg 100 mg PO DAILY #90 tabs 11/08/21 10/25/22 Rx tablet,extended release 24 hr losartan 50 mg tablet 25 mg PO DAILY #90 tabs 06/04/22 10/25/22 Rx tamsulosin 0.4 mg capsule 0.4 mg PO DAILY #90 caps 08/06/22 10/25/22 Rx aspirin 81 mg tablet,delayed 81 mg PO DAILY 09/02/22 10/25/22 History release cholecalciferol (vitamin D3) 50 50 mcg PO DAILY 09/02/22 10/25/22 History mcg (2,000 unit) capsule (Vitamin D3) tiotropium 2.5 mcg-olodaterol 2.5 2 puff inhalation DAILY 09/02/22 10/25/22 History mcg/actuation mist for inhalation (Stiolto Respimat) coenzyme Q10 [Co Q-10] 0 mg PO BID 09/11/22 10/25/22 History rosuvastatin 20 mg tablet (Crestor) 20 mg PO QAM 90 days #30 tabs 10/01/22 10/25/22 Rx clopidogrel 75 mg tablet 75 mg PO DAILY 10/25/22 10/25/22 History isosorbide mononitrate 30 mg 30 mg PO DAILY #90 tabs 10/26/22 Rx tablet,extended release 24 hr Past Med/Surg History Medical History Acute non-ST elevation myocardial infarction (NSTEMI) Allergic rhinitis Aortic valve sclerosis Benign localized hyperplasia of prostate with urinary obstruction Bilateral tinnitus Carotid artery plaque Coronary artery disease Generalized osteoarthritis Hearing loss Hypercholesterolemia Moderate aortic stenosis Sensorineural hearing loss (SNHL) of both ears Subclavian artery stenosis Surgical History H/O hernia repair H/O wrist surgery History of coronary artery stent placement S/P appendectomy S/P rotator cuff repair S/P thoracotomy Family History Father Colorectal cancer about 78yo Mother about age 92 Brother accidental Brother Myocardial infarction Sister Obese Sister Hypertension Other Family history non-contributory Stroke Denies family history of Ovarian cancer Prostate cancer Coronary heart disease Breast cancer Social History Smoking Status: Former smoker Second Hand Exposure: No; Do You Dip or Chew Tobacco: No; Tobacco Cessation Education Requested by Patient: No Hx Alcohol Use: Yes Alcohol type: beer Alcohol Intake Frequency: Monthly or Less Hx Substance Use: No Preferred Language: Italian Communication Ability: Effective Visual Impairment: No Limitations Hearing Ability: Use of Hearing Aid Edge Inker Required: No Beliefs That Will Affect Care: None marital status: Current Living Situation: Spouse Current Living Situation Comment: home w/ current occupational status: 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 [employer] How many Children do You have: 3 Other Information That Helps Us Care for You: No Feels Safe at Home: Yes Safety Concerns: Feels Safe At This Time Childhood Exposure to Second-Hand Smoke: Yes Diet: regular Diet Comment: GOLO caffeine: Yes during the past year weight has: decreased > 10 lbs Dental Care, Regularly: Yes Physical Activity Frequency: 1-2 Times per Week Physical Activity Frequency Comment: walk Seatbelt Use: always Sunscreen Use: No Assistive Devices: Contacts, CPAP and Hearing Aid - Bilateral Review of Systems Review of Systems: All systems reviewed & are unremarkable except as noted in HPI & below Physical Exam Physical Exam: General: A&Ox3. NAD. Cooperative. HEENT: Atraumatic, normocephalic. Pupils equal and reactive to light. Vision and hearing grossly intact. No facial asymmetry Pulm: CTAB A&P. -wheezes, -rales, -rhonchi. Symmetrical chest rise. No increased work of breathing. No respiratory distress. Cardiac: RRR, SM present. Radial pulses intact and symmetrical. No JVD. No lower extremity edema Abdominal: Nontender, nondistended, soft. BS present. 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 Sensation of soft touch intact in all distributions of the upper and lower arm bilaterally. Sensation soft touch in the feet intact, hip flexion/ankle dorsiflexion/plantarflexion 5/5. Results & Data Results & Data Vital Signs (Past 12 Hours) Vital Signs Temp Pulse Pulse Resp BP BP Pulse Ox 10/25/22 11:11 51 L 20 150/79 H 94 10/25/22 10:27 56 L 98 10/25/22 10:25 55 L 10/25/22 10:14 64 20 185/96 H 98 10/25/22 10:01 36.6 C 52 L 18 163/91 H 98 O2 Del Method 10/25/22 11:11 Room Air 10/25/22 10:27 Room Air 10/25/22 10:25 10/25/22 10:14 Room Air 10/25/22 10:01 Room Air PG Care Time/CCT Total # of Minutes Spent Total Time Spent with Patient: Total time spent is greater than 50% in coordination of care (as documented) at patient's floor/unit and/or counseling patient: Coding Level of Care Code 51960 INT INP/OBS CARE 3/75MIN Diagnoses Chest pain R07.9 Coronary artery disease I25.10 Hypertension I10 COPD (chronic obstructive pulmonary disease) J44.9 CKD (chronic kidney disease), stage III N18.3 Subclavian artery stenosis I77.1 Restrictive lung disease J98.4
[2022-10-25] MEDS ORDERED: Heparin IV Adult Wt-Based Low-Dose WITH Bolus Protocol IV SCH (12:40)
[2022-10-25] MEDS ORDERED: HEPARIN SOD (PORCINE) 1000 UNIT/ML IV ONE (12:49)
[2022-10-25] MEDS ORDERED: GLUCAGON FOR INJ 1 MG VIAL SQ PRN (12:51)
[2022-10-25] MEDS ORDERED: DEXTROSE 50% 50 ML SYRINGE IV PRN (12:51)
[2022-10-25] MEDS ORDERED: CARBOHYDRATES FOR HYPOGLYCEMIA PO PRN (12:51)
[2022-10-25] MEDS ORDERED: GLUCOSE 10 TAB/TUBE PO PRN (12:51)
[2022-10-25] MEDS ORDERED: GLUCOSE 40% GEL 15 GM TUBE PO PRN (12:51)
[2022-10-25] MEDS: HEPARIN SODIUM/DEXTROSE 25,000 UNITS/500 ML BAG IV SCH (13:03)
[2022-10-25] MEDS ORDERED: NITROGLYCERIN SL 0.4 MG/TAB TAB SL PRN (14:29)
[2022-10-25] MEDS ORDERED: ALBUTEROL HFA 8 GM INHALER INH PRN (14:29)
[2022-10-25] MEDS ORDERED: ACETAMINOPHEN 325 MG TAB PO PRN (14:29)
[2022-10-25] MEDS: D5NSS + 20MEQ KCL 20 MEQ/1,000 ML BAG IV SCH (15:50)
[2022-10-25] MEDS: INSULIN ASPART PER UNIT CHARGE SC SCH ×2 (16:49→21:20)
[2022-10-25] MEDS ORDERED: COENZYME Q10 PO SCH (21:00)
[2022-10-25 21:07] LABS: Partial Thromboplastin Ratio 1.7
[2022-10-25 21:09] LABS: Partial Thromboplastin Time 47.9 Seconds (21.0-31.0)
--- NOTE | 2022-10-25 22:52 | Cardiology Consultation ---
Date of Consultation October 25, 2022 Assessment & Plan (1) ACS (acute coronary syndrome): 2. Multivessel CADknown high-grade OM 2 lesion, multiple stents to RCA, prior stents to LCx, LAD. 3. New inferolateral wall motion abnormality on echo, EF 50 to 55% 4. 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 Stage III CKD 6. Right subclavian artery stenosis 7. Hypertension 8. COPD/restrictive lung disease Patient here with recurrent left upper extremity pain/numbness waking her from sleep, reminiscent of prior anginal symptoms which prompted PCI. Has mild elevated troponin and new inferolateral wall motion abnormality. Findings consistent with elevated risk ACS and suspect secondary to previously noted severe OM disease. Presently patient chest pain-free, hemodynamically and electrically stable. No need for urgent cardiac catheterization at this time. Plan on repeat cardiac catheterization via left radial artery tomorrow morning. Please keep n.p.o. past midnight Continue current heparin infusion, DAPT with aspirin, clopidogrel Continue home Toprol-XL, Imdur. Can increase losartan as needed for BP. Continue statin. Further recommendations pending findings of coronary angiography. History of Present Illness Attending Physician: Wilmer Shafer MD History of Present Illness Mr. Guzman is a very pleasant 82-year-old man with a history of complex coronary artery disease readmitted with recurrent left arm pain/numbness and elevated HS TropI concerning for NSTEMI. Patient is followed by Dr. Nazario for his cardiac care. CAD history includes NSTEMI 03/2010 with single DUC to proximal LCx (3.5 x 18 [place]). Repeat NSTEMI 09/2018 with 99% distal RCA (complex intervention with 3 overlapping DUC distal RCA to PDA (3.5 x 22, 2.5 x 26, 2.25 x 15 [place]) and 1 DUC to mid RCA (4.0 x 18 [place])). Later had staged PCI of LAD (3.5 x 18 [place]). Also has mild to moderate /AI, right subclavian artery stenosis, hypertension, dyslipidemia and stage III CKD. Other issues OA, BPH and COPD/restrictive lung disease and CRISTIAN on CPAP. Most recent hospitalization 08/2022 with NSTEMI. LV function unchanged on echo. Cardiac cath revealed moderate to severe diffuse LAD disease, LCx with minimal ISR, medium OM1 with 99% stenosis. RCA with minimal ISR. Decision for medical management. Since discharge minimal residual chest pain. Seen by cardiology 1 month ago and was awaiting Lexiscan SPECT to assess viability in OM distribution. Last night developed left hand/arm numbness waking him from sleep. Stuttering symptoms overnight. No associated chest pain. Has had similar symptoms prompting prior stents. In ED chest pain resolved with nitroglycerin. Initially hypertensive, sinus bradycardia. ECG with old inferior infarct, LVH, T wave inversions less prominent than prior hospitalization 08/2022. HS TropI initially 550, trended up to 623. Allergies Allergy/AdvReac Type Severity Reaction Status Date / Time niacin Allergy Intermediate ITCHING Verified 09/27/22 14:55 Penicillins Allergy Intermediate RASH Verified 09/27/22 14:55 irbesartan [From Avapro] Allergy Unknown Unknown Verified 09/27/22 14:55 iron AdvReac Severe CHEST PAIN Verified 09/27/22 14:55 zinc AdvReac Severe CHEST PAIN Verified 09/27/22 14:55 atorvastatin AdvReac Intermediate INTOLERANT Verified 09/27/22 14:55 ezetimibe AdvReac Intermediate ACHE AND Verified 09/27/22 14:55 JOINT PAIN metoprolol AdvReac Intermediate AT HIGHER Verified 09/27/22 14:55 DOSAGE - MUSCLES ACHES pravastatin [From Pravachol] AdvReac Intermediate INTOLERANT Verified 09/27/22 14:55 simvastatin AdvReac Intermediate INTOLERANT Verified 09/27/22 14:55 Home Medications Medication Instructions Recorded Confirmed Type albuterol sulfate 90 mcg/actuation 2 puff inhalation Q4H PRN 09/05/20 10/25/22 Rx aerosol inhaler shortness of breath or wheezing #6.7 grams nitroglycerin 0.4 mg sublingual 0.4 mg sublingual Q5M PRN chest 04/18/21 10/25/22 Rx tablet pain #25 tabs metoprolol succinate 100 mg 100 mg PO DAILY #90 tabs 11/08/21 10/25/22 Rx tablet,extended release 24 hr losartan 50 mg tablet 25 mg PO DAILY #90 tabs 06/04/22 10/25/22 Rx tamsulosin 0.4 mg capsule 0.4 mg PO DAILY #90 caps 08/06/22 10/25/22 Rx aspirin 81 mg tablet,delayed 81 mg PO DAILY 09/02/22 10/25/22 History release cholecalciferol (vitamin D3) 50 50 mcg PO DAILY 09/02/22 10/25/22 History mcg (2,000 unit) capsule (Vitamin D3) tiotropium 2.5 mcg-olodaterol 2.5 2 puff inhalation DAILY 09/02/22 10/25/22 History mcg/actuation mist for inhalation (Stiolto Respimat) coenzyme Q10 [Co Q-10] 0 mg PO BID 09/11/22 10/25/22 History isosorbide mononitrate 30 mg 30 mg PO DAILY #30 tabs 10/01/22 10/25/22 Rx tablet,extended release 24 hr rosuvastatin 20 mg tablet (Crestor) 20 mg PO QAM 90 days #30 tabs 10/01/22 10/25/22 Rx clopidogrel 75 mg tablet 75 mg PO DAILY 10/25/22 10/25/22 History Patient History Medical History Acute non-ST elevation myocardial infarction (NSTEMI) Allergic rhinitis Aortic valve sclerosis Benign localized hyperplasia of prostate with urinary obstruction Bilateral tinnitus Carotid artery plaque Coronary artery disease Generalized osteoarthritis Hearing loss Hypercholesterolemia Moderate aortic stenosis Sensorineural hearing loss (SNHL) of both ears Subclavian artery stenosis Surgical History H/O hernia repair H/O wrist surgery History of coronary artery stent placement S/P appendectomy S/P rotator cuff repair S/P thoracotomy Family History Father Colorectal cancer about 78yo Mother about age 92 Brother accidental Brother Myocardial infarction Sister Obese Sister Hypertension Other Family history non-contributory Stroke Denies family history of Ovarian cancer Prostate cancer Coronary heart disease Breast cancer Social History Smoking Status: Former smoker Second Hand Exposure: No; Do You Dip or Chew Tobacco: No; Tobacco Cessation Education Requested by Patient: No Hx Alcohol Use: Yes Alcohol type: beer Alcohol Intake Frequency: Monthly or Less Hx Substance Use: No Preferred Language: Lao Communication Ability: Effective Visual Impairment: No Limitations Hearing Ability: Use of Hearing Aid 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: No Beliefs That Will Affect Care: None marital status: Current Living Situation: Spouse Current Living Situation Comment: home w/ current 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 How many Children do You have: 3 Other Information That Helps Us Care for You: No Feels Safe at Home: Yes Safety Concerns: Feels Safe At This Time Childhood Exposure to Second-Hand Smoke: Yes Diet: regular Diet Comment: GOLO caffeine: Yes during the past year weight has: decreased > 10 lbs Dental Care, Regularly: Yes Physical Activity Frequency: 1-2 Times per Week Physical Activity Frequency Comment: walk Seatbelt Use: always Sunscreen Use: No Assistive Devices: Contacts, CPAP and Hearing Aid - Bilateral Review of Systems Review of Systems: All systems reviewed & are unremarkable except as noted in HPI & below Physical Exam Physical Exam: General: Comfortable HEENT: Sclerae anicteric Lungs: Clear to auscultation bilaterally, no crackles or wheezes Cardiac: Regular rate and rhythm, 2 out of 6 systolic ejection murmur Vascular: 2+ radial pulses bilaterally Abdomen: Soft, nontender Extremities: Well perfused, no peripheral edema Neuro: Nonfocal Psych: Alert orient x3, normal affect and mood Results & Data Vital Signs (Past 12 Hours) Vital Signs Temp Pulse Pulse Resp BP BP BP 10/25/22 21:00 52 L 19 177/93 H 10/25/22 20:00 56 L 24 170/91 H 10/25/22 19:00 57 L 17 192/94 H 10/25/22 18:30 61 18 10/25/22 18:20 56 L 21 10/25/22 18:10 51 L 17 10/25/22 18:07 174/89 H 10/25/22 18:07 56 L 18 10/25/22 18:01 51 L 16 10/25/22 18:00 156/99 H 10/25/22 17:59 51 L 20 10/25/22 17:00 51 L 20 10/25/22 17:00 167/85 H 10/25/22 16:00 50 L 15 10/25/22 16:00 53 L 10/25/22 15:30 53 L 18 10/25/22 15:01 58 L 15 10/25/22 15:01 169/74 H 10/25/22 15:00 50 L 17 10/25/22 14:30 57 L 17 10/25/22 14:13 139/98 10/25/22 14:13 56 L 18 10/25/22 14:00 52 L 19 10/25/22 14:00 137/84 10/25/22 15:09 10/25/22 14:29 10/25/22 14:31 97.9 F 52 L 18 139/98 10/25/22 13:55 52 L 20 152/81 H 10/25/22 12:56 152/81 H 10/25/22 12:55 50 L 17 146/79 H 10/25/22 11:11 51 L 20 150/79 H Pulse Ox Pulse Ox O2 Del Method O2 Del Method 10/25/22 21:00 10/25/22 20:00 93 10/25/22 19:00 94 10/25/22 18:30 96 10/25/22 18:20 96 10/25/22 18:10 95 10/25/22 18:07 10/25/22 18:07 97 10/25/22 18:01 97 10/25/22 18:00 10/25/22 17:59 97 10/25/22 17:00 97 10/25/22 17:00 10/25/22 16:00 96 10/25/22 16:00 10/25/22 15:30 97 10/25/22 15:01 97 10/25/22 15:01 10/25/22 15:00 97 10/25/22 14:30 10/25/22 14:13 10/25/22 14:13 10/25/22 14:00 96 10/25/22 14:00 10/25/22 15:09 Room Air 10/25/22 14:29 95 Room Air 10/25/22 14:31 95 Room Air 10/25/22 13:55 94 Room Air 10/25/22 12:56 10/25/22 12:55 95 Room Air 10/25/22 11:11 94 Room Air PG Care Time/CCT Total # of Minutes Spent Total Time Spent with Patient: Total time spent is greater than 50% in coordination of care (as documented) at patient's floor/unit and/or counseling patient: Coding Level of Care Code 78628 INT INP/OBS CARE 3/75MIN Diagnoses ACS (acute coronary syndrome) I24.9
[2022-10-26] MEDS: D5NSS + 20MEQ KCL 20 MEQ/1,000 ML BAG IV SCH ×3 (01:32→16:41)
[2022-10-26 03:38] LABS: Basophils # (auto) 0.02 K/uL (0-0.2); Basophils % (auto) 0.3 %; Eosinophils # (auto) 0.29 K/uL (0-0.50); Eosinophils % (auto) 4.8 %; Hematocrit (blood only) 39.8 % (42.0-52.0); Hemoglobin 13.5 g/dl (14.0-18.0); Immature Granulocytes # (auto) 0.03 K/uL (0.01-0.20); Immature Granulocytes % (auto) 0.5 %; Lymphocytes # (auto) 1.57 K/uL (1.2-3.4); Lymphocytes % (auto) 26.1 %; Mean Corpuscular Hgb Conc 33.9 g/dL (32.0-36.0); Mean Corpuscular Volume 97.3 fL (80.0-100.0); Mean Platelet Volume 10.8 fL (9.4-12.4); Neutrophils # (auto) 3.51 K/uL (1.40-6.50); Neutrophils % (auto) 58.3 %; Platelet Count 143 K/uL (130-400); RDW Standard Deviation 46.4 fL (36.4-46.3); Red Blood Count 4.09 M/uL (4.70-6.10); White Blood Count 6.02 K/ul (4.8-10.8)
[2022-10-26 03:50] LABS: Calcium 9.3 mg/dl (8.6-10.3); Creatinine Clr Calc Pharmacy 38.8 ml/min; Est GFR (African American) 45.5 ml/min; Est GFR (Non-African American) 39.2 ml/min; Potassium 4.2 mmol/L (3.5-5.1)
[2022-10-26 04:06] LABS: Partial Thromboplastin Ratio 1.4; Partial Thromboplastin Time 39.8 Seconds (21.0-31.0)
[2022-10-26 07:31] LABS: Estimated Average Glucose 120 mg/dl; Hemoglobin A1C 5.8 % (4.5-5.6)
[2022-10-26] MEDS: INSULIN ASPART PER UNIT CHARGE SC SCH ×3 (08:29→17:05)
[2022-10-26] MEDS: UMECLIDINIUM/VILANTEROL 62.5/25MCG 7 PUFFS/INHALER INH SCH (08:30)
[2022-10-26] MEDS: ISOSORBIDE MONO EXTENDED REL 30 MG TABCR PO SCH (08:31)
[2022-10-26] MEDS: CLOPIDOGREL BISULFATE 75 MG TAB PO SCH (08:31)
[2022-10-26] MEDS: ASPIRIN 81 MG ECTAB PO SCH (08:32)
[2022-10-26] MEDS: CHOLECALCIFEROL 1,000 UNITS 25 MCG TAB PO SCH (08:34)
[2022-10-26] MEDS: ROSUVASTATIN CALCIUM 20 MG TAB PO SCH (08:34)
[2022-10-26] MEDS: METOPROLOL SUCC 50MG EXT REL TAB PO SCH ×2 (08:34→14:00)
[2022-10-26] MEDS: TAMSULOSIN HCL 0.4 MG CAP PO SCH ×2 (08:35→10:51)
[2022-10-26] MEDS: LOSARTAN POTASSIUM 25 MG TAB PO SCH (08:36)
--- NOTE | 2022-10-26 09:02 | Hospitalist Progress Note ---
Date of Service October 26, 2022 Assessment & Plan (1) Chest pain: Plan: Chest pain/arm pain, history of NSTEMI Patient with troponins in the 500 range. Initiated on heparin therapy patient taken to the cardiac catheterization laboratory which showed: 1. Multivessel coronary artery disease -99% proximal OM1. Patent prox-mid circumflex stent 75% proximal LAD by IVUS. Mid LAD stent patent. Diffuse residual mid LAD disease up to 60%. 70% small distal LAD Patent mid RCA and distal RCA into PDA stents. 2. Normal intracardiac filling pressure 3. Successful PCI of proximal OM1 with single drug-eluting stent (2.25 x 18 mm Dion; postdilated with 2.5 NC). 4. Successful PCI of proximal LAD with single drug-eluting stent (3.0 x 8 mm Dion; postdilated with 4.0 NC). Recommendations postcatheterization of the following IV fluids for RENNY prevention Continue extended dual antiplatelet therapy with now at least 8 total stents Continue ASCVD risk factor modification. Consider PCSK9/bempedoic acid as outpatient. Consult cardiac Rehab (2) COPD (chronic obstructive pulmonary disease): Plan: COPD, chronic, stable - Stiolto works well at home 2 puffs BID. 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 Since this gets some breathing trouble if he bends over sharply or chin to chest, but this has been chronic since 1970s with no recent change. No change in this, no acute management CRISTIAN Continue CPAP (3) CKD (chronic kidney disease), stage III: Plan: CKD stage III, chronic, stable Baseline creatinine around 1.51.7 (4) Subclavian artery stenosis: Plan: Shoulder pain Given associated with chest pain, elevated troponin, and cardiac history most likely cardiac as noted above Pain did occur at night and was positional in the setting of patient laying on his arm. DDx includes nerve compression/MSK Patient does have a history of 50% stenosis in right subclavian artery with no evidence of steal on 2020 exam. Radial pulses intact bilaterally, neurovascularly intact at bedside evaluation. Plan DVT prophylaxis: Early ambulation Disposition: PCU for suspected NSTEMI monitoring CODE STATUS: Full code Admission and Anticipated Discharge Date Admission Date: October 25, 2022 Subjective Patient was being seen at the catheterization a couple of his family has had no further chest pain catheter access site of his left wrist is clean dry and intact without discomfort or numbness Physical Exam Physical Exam: Patient is awake alert appropriate no complaints card exam is regular lungs are clear distal hand show good perfusion on the left Results & Data Results & Data Vital Signs (Past 12 Hours) Vital Signs Temp Pulse Resp BP 10/26/22 04:00 98.2 F 10/26/22 00:00 98.2 F 10/26/22 06:00 47 L 10 L 175/80 H 10/26/22 05:00 48 L 15 182/81 H 10/26/22 04:00 47 L 12 166/85 H 10/26/22 03:00 45 L 11 L 10/26/22 02:00 48 L 0 L 148/67 H 10/26/22 01:00 50 L 11 L 133/62 10/26/22 00:00 47 L 16 189/92 H 10/26/22 00:00 48 L 10/25/22 23:00 51 L 15 173/89 H 10/25/22 22:00 51 L 20 170/79 H 10/25/22 21:00 52 L 19 177/93 H Laboratory Results Reviewed CBC reviewed chemistry PG Care Time/CCT Total # of Minutes Spent Total Time Spent with Patient: Total time spent is greater than 50% in coordination of care (as documented) at patient's floor/unit and/or counseling patient: Coding Level of Care Code 66447 SUB INP/OBS CARE 2/35MIN Diagnoses Chest pain R07.2 Chest pain type: precordial pain COPD (chronic obstructive pulmonary disease) J44.9 CKD (chronic kidney disease), stage III N18.3 Subclavian artery stenosis I77.1 (1) Chest pain Chest pain type: precordial pain Qualified Code(s): R07.2 - Precordial pain
[2022-10-26] MEDS ORDERED: MIDAZOLAM HCL 1 MG/ML 2ML VIAL ONE (10:11)
[2022-10-26] MEDS ORDERED: HEPARIN (PORCINE) 1000 UNIT/ML 10 ML (CATH LAB USE ONLY) ONE (10:11)
[2022-10-26] MEDS ORDERED: niCARdipine HCL INJ 2.5 MG/ML 10 ML AMP ONE (10:11)
[2022-10-26] MEDS ORDERED: fentaNYL citrate PF 100 MCG/2 ML VIAL ONE (10:12)
[2022-10-26] MEDS ORDERED: NITROGLYCERIN/D5W 100MCG/ML 20ML SYR ONE (10:12)
--- NOTE | 2022-10-26 10:58 | Pre Anesthesia Assessment ---
Date of Service October 26, 2022 Pre Sedation Assessment Vital Signs Temp Pulse Pulse Resp BP BP BP 10/26/22 10:29 59 L 16 185/116 H 10/26/22 09:00 55 L 25 H 197/110 H 10/26/22 08:00 50 L 13 192/90 H 10/26/22 07:00 49 L 16 175/83 H 10/26/22 09:00 97.7 F 10/26/22 08:00 51 L 10/26/22 04:00 98.2 F 10/26/22 00:00 98.2 F 10/25/22 20:00 98.2 F 10/26/22 06:00 47 L 10 L 175/80 H 10/26/22 05:00 48 L 15 182/81 H 10/26/22 04:00 47 L 12 166/85 H 10/26/22 03:00 45 L 11 L 10/26/22 02:00 48 L 0 L 148/67 H 10/26/22 01:00 50 L 11 L 133/62 10/26/22 00:00 47 L 16 189/92 H 10/26/22 00:00 48 L 10/25/22 23:00 51 L 15 173/89 H 10/25/22 22:00 51 L 20 170/79 H 10/25/22 20:00 10/25/22 21:00 52 L 19 177/93 H 10/25/22 20:00 56 L 24 170/91 H 10/25/22 19:00 57 L 17 192/94 H 10/25/22 18:30 61 18 10/25/22 18:20 56 L 21 10/25/22 18:10 51 L 17 10/25/22 18:07 174/89 H 10/25/22 18:07 56 L 18 10/25/22 18:01 51 L 16 10/25/22 18:00 156/99 H 10/25/22 17:59 51 L 20 10/25/22 17:00 51 L 20 10/25/22 17:00 167/85 H 10/25/22 16:00 50 L 15 10/25/22 16:00 53 L 10/25/22 15:30 53 L 18 10/25/22 15:01 58 L 15 10/25/22 15:01 169/74 H 10/25/22 15:00 50 L 17 10/25/22 14:30 57 L 17 10/25/22 14:13 139/98 10/25/22 14:13 56 L 18 10/25/22 14:00 52 L 19 10/25/22 14:00 137/84 10/25/22 15:09 10/25/22 14:29 10/25/22 14:31 97.9 F 52 L 18 139/98 10/25/22 13:55 52 L 20 152/81 H 10/25/22 12:56 152/81 H 10/25/22 12:55 50 L 17 146/79 H 10/25/22 11:11 51 L 20 150/79 H Pulse Ox Pulse Ox O2 Del Method O2 Del Method 10/26/22 10:29 97 Room Air 10/26/22 09:00 94 Room Air 10/26/22 08:00 10/26/22 07:00 10/26/22 09:00 10/26/22 08:00 10/26/22 04:00 10/26/22 00:00 10/25/22 20:00 10/26/22 06:00 10/26/22 05:00 10/26/22 04:00 10/26/22 03:00 10/26/22 02:00 10/26/22 01:00 10/26/22 00:00 10/26/22 00:00 10/25/22 23:00 10/25/22 22:00 10/25/22 20:00 Room Air 10/25/22 21:00 10/25/22 20:00 93 10/25/22 19:00 94 10/25/22 18:30 96 10/25/22 18:20 96 10/25/22 18:10 95 10/25/22 18:07 10/25/22 18:07 97 10/25/22 18:01 97 10/25/22 18:00 10/25/22 17:59 97 10/25/22 17:00 97 10/25/22 17:00 10/25/22 16:00 96 10/25/22 16:00 10/25/22 15:30 97 10/25/22 15:01 97 10/25/22 15:01 10/25/22 15:00 97 10/25/22 14:30 10/25/22 14:13 10/25/22 14:13 10/25/22 14:00 96 10/25/22 14:00 10/25/22 15:09 Room Air 10/25/22 14:29 95 Room Air 10/25/22 14:31 95 Room Air 10/25/22 13:55 94 Room Air 10/25/22 12:56 10/25/22 12:55 95 Room Air 10/25/22 11:11 94 Room Air Cardiovascular RRR, no murmur, no edema Respiratory normal respiratory effort, lungs clear to auscultation Pre-Sedation Airway Assessment Smoking Status: Former smoker Hx Sleep Apnea: No Hx Difficult Intubation: No Short, Thick Neck: No Thyromental Distance: > or= 3.5 Finger Breadths Oral Cavity: + WNL Mallampati Class: II ASA: ASA3 NPO Status Date of Last Intake of Fluids: 10/26/22 Time of Last Intake of Fluids: 08:00 Last Oral Intake of Fluids Comment: sips with meds Date of Last Intake of Solid Food: 10/25/22 Time of Last Intake of Solid Foods: 20:00 Procedure Planning Contraindications for Sedation: none Current Medications Reviewed: Yes Notes The planned sedation has been discussed with the patient. Informed Consent was obtained. I have identified the patient, determined the appropriateness of sedation and have assessed the patient immediately prior to the procedure. All medicine(s) and interventions are by my order.
[2022-10-26] MEDS ORDERED: Nursing to Pharmacy Communication SCH (11:00)
[2022-10-26] MEDS ORDERED: CLOPIDOGREL BISULFATE 300 MG TAB ONE (12:10)
--- NOTE | 2022-10-26 12:35 | Post Anesthesia Assessment ---
Date of Service October 26, 2022 Post Sedation Assessment Vital Signs Temp Pulse Pulse Resp BP BP BP 10/26/22 12:30 55 L 20 172/80 H 10/26/22 10:29 59 L 16 185/116 H 10/26/22 09:00 55 L 25 H 197/110 H 10/26/22 08:00 50 L 13 192/90 H 10/26/22 07:00 49 L 16 175/83 H 10/26/22 09:00 97.7 F 10/26/22 08:00 51 L 10/26/22 04:00 98.2 F 10/26/22 00:00 98.2 F 10/25/22 20:00 98.2 F 10/26/22 06:00 47 L 10 L 175/80 H 10/26/22 05:00 48 L 15 182/81 H 10/26/22 04:00 47 L 12 166/85 H 10/26/22 03:00 45 L 11 L 10/26/22 02:00 48 L 0 L 148/67 H 10/26/22 01:00 50 L 11 L 133/62 10/26/22 00:00 47 L 16 189/92 H 10/26/22 00:00 48 L 10/25/22 23:00 51 L 15 173/89 H 10/25/22 22:00 51 L 20 170/79 H 10/25/22 20:00 10/25/22 21:00 52 L 19 177/93 H 10/25/22 20:00 56 L 24 170/91 H 10/25/22 19:00 57 L 17 192/94 H 10/25/22 18:30 61 18 10/25/22 18:20 56 L 21 10/25/22 18:10 51 L 17 10/25/22 18:07 174/89 H 10/25/22 18:07 56 L 18 10/25/22 18:01 51 L 16 10/25/22 18:00 156/99 H 10/25/22 17:59 51 L 20 10/25/22 17:00 51 L 20 10/25/22 17:00 167/85 H 10/25/22 16:00 50 L 15 10/25/22 16:00 53 L 10/25/22 15:30 53 L 18 10/25/22 15:01 58 L 15 10/25/22 15:01 169/74 H 10/25/22 15:00 50 L 17 10/25/22 14:30 57 L 17 10/25/22 14:13 139/98 10/25/22 14:13 56 L 18 10/25/22 14:00 52 L 19 10/25/22 14:00 137/84 10/25/22 15:09 10/25/22 14:29 10/25/22 14:31 97.9 F 52 L 18 139/98 10/25/22 13:55 52 L 20 152/81 H 10/25/22 12:56 152/81 H 10/25/22 12:55 50 L 17 146/79 H Pulse Ox Pulse Ox O2 Del Method O2 Del Method 10/26/22 12:30 95 Room Air 10/26/22 10:29 97 Room Air 10/26/22 09:00 94 Room Air 10/26/22 08:00 10/26/22 07:00 10/26/22 09:00 10/26/22 08:00 10/26/22 04:00 10/26/22 00:00 10/25/22 20:00 10/26/22 06:00 10/26/22 05:00 10/26/22 04:00 10/26/22 03:00 10/26/22 02:00 10/26/22 01:00 10/26/22 00:00 10/26/22 00:00 10/25/22 23:00 10/25/22 22:00 10/25/22 20:00 Room Air 10/25/22 21:00 10/25/22 20:00 93 10/25/22 19:00 94 10/25/22 18:30 96 10/25/22 18:20 96 10/25/22 18:10 95 10/25/22 18:07 10/25/22 18:07 97 10/25/22 18:01 97 10/25/22 18:00 10/25/22 17:59 97 10/25/22 17:00 97 10/25/22 17:00 10/25/22 16:00 96 10/25/22 16:00 10/25/22 15:30 97 10/25/22 15:01 97 10/25/22 15:01 10/25/22 15:00 97 10/25/22 14:30 10/25/22 14:13 10/25/22 14:13 10/25/22 14:00 96 10/25/22 14:00 10/25/22 15:09 Room Air 10/25/22 14:29 95 Room Air 10/25/22 14:31 95 Room Air 10/25/22 13:55 94 Room Air 10/25/22 12:56 10/25/22 12:55 95 Room Air Recovery Score Activity: Moves 4 extremities Respiration: Deep Breath/Cough Circulation: +/-20% PreAnes Value Consciousness: Fully Awake Oxygen Saturation: > 92% On Room Air Post Anesthesia Score: 10 Discharge Sedation Level of Care: Fast Track Phase II Post Sedation Plan On clinical assessment, the patient appears to have tolerated the sedation without complications. Patient is recovering as anticipated. Patient will continue to be monitored by nursing and may be discharged when sedation discharge criteria are met per below protocol. Upon Completions of procedure up to 15 minutes continue every 5 minute vital signs and the P.A.R. score; then discharge to a Phase I or Fast Track to Phase II per the following guidelines: * Discharge Patient to appropriate Phase II area if PAR is 8 or greater or return to pre- procedure baseline. The post - procedure orders will be as directed. * If PAR score is less than 8 or not return to pre-procedure baseline then patient will follow Phase I monitoring till PAR is reached for Phase II. The Phase I may be done in procedure room or may call to secure a Phase I area. * If naloxone or flumazenil are used for reversal, hold in Phase I for continued monitoring from when last reversal dose was given for a minimum of 60 minutes or longer pending the nurse and/or physician discretion of patient condition before discharge to Phase II. Please call the Sedation Physician to re-evaluate and complete post-note for discharge to Phase II area. Do NOT discharge from procedure sedation or Phase 1 until post- sedation evaluation note is complete by procedure /sedation MD Sedation Discharge Instructions to be given to the patient at discharge to home.
--- NOTE | 2022-10-26 13:11 | Cardiac Catheterization ---
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 Cardiac Status Clinical evaluation leading to the procedure CAD Presenation: Non STEMI Anginal Classification: CCS IV Diagnostic Physicians Name: Jak Richardson MD Closure Device Recommendations: Medical Therapy and/or Counseling Cardiac Cath Procedure Full Procedure Date October 26, 2022 Pre-Procedure Diagnosis Pre-Procedure Diagnosis: Non STEMI AUC Score AUC Score: 7 Post-Procedure Diagnosis Post-Procedure Diagnosis: Severe CAD, Successful PCI and Normal Intracardiac Pressures Procedure(s) Performed Procedure(s) Performed: Coronary Angiography, Left Heart Cath, Drug Eluting Stent and IVUS Substation Operator Conversion Jak Richardson MD Physician Office Rep(s) Irena Estimated Blood Loss Estimated Blood Loss: 10 Medication(s) Medication(s): Fentanyl, Heparin, Lidocaine 1%, Nicardipine, Nitroglycerin and Versed Summary of Findings Indication: NSTEMI Access: 6 Fr left radial artery Catheters: JL 3.5, JR4, EBU 3.5 guide Findings: LM -Short, normal caliber, no significant disease LAD -medium caliber vessel, 70% % focal stenosis at takeoff of small D1, mid stent widely patent without ISR, 50 to 60% mid stenosis after stent, 40 to 50% latemid stenosis at takeoff of small D3. 70% distal stenosis. Medium D1 with 70% ostial stenosis. Circumflex -medium caliber, proximal to mid stent widely patent without significant ISR. Medium OM1 with 99% proximal stenosis and EMMANUEL II-III flow. OM 2 without significant disease. RCA -large caliber vessel, dominant, calcified, 30% mid segment stenosis just before widely patent mid stent. Distal stent into PDA widely patent. Right PDA, PLB without significant disease. LVEDP -8 -- PCI -- Antithrombotic therapy: Heparin, clopidogrel Procedure: Left main cannulated with EBU 3.5 guide Pre-procedure flow EMMANUEL 2-3 and OM Manufacturing Engineering Technician 50 wire passed across lesion into distal OM Proximal OM1 lesion predilated with 2.0 compliant balloon Dilated lesion stented with 2.25 x 18 mm Dion drug-eluting stent Stent post-dilated with 2.5 noncompliant balloon IC vasodilators administered for spasm Post procedure EMMANUEL 3 flow, stent well expanded with minimal residual stenosis and no apparent cardiac complications. Manufacturing Engineering Technician 50 wire redirected into LAD across stenosis and prior stents Ball IVUS catheter placed to mid LAD. Pullback revealed widely patent stent without ISR. Severe stenosis (75% by IVUS) at takeoff of small D1 with proximal mild to moderate calcified disease. No significant ostial LAD or LMCA disease. Decision to proceed with PCI of proximal LAD Proximal LAD stented with 3.0 x 8 mm [place] drug-eluting stent Stent postdilated with 3.5 NC Repeat IVUS showed well apposed, well-expanded stent. Mild haziness noted in segment between 2 stent at takeoff of D2. No apparent complications in this area on IVUS, residual mild to moderate calcified disease. Angiographically post procedure EMMANUEL-3 flow and stent well expanded. Arterial Closure: TR band Summary: 1. Multivessel coronary artery disease -99% proximal OM1. Patent prox-mid circumflex stent 75% proximal LAD by IVUS. Mid LAD stent patent. Diffuse residual mid LAD disease up to 60%. 70% small distal LAD Patent mid RCA and distal RCA into PDA stents. 2. Normal intracardiac filling pressure 3. Successful PCI of proximal OM1 with single drug-eluting stent (2.25 x 18 mm Dion; postdilated with 2.5 NC). 4. Successful PCI of proximal LAD with single drug-eluting stent (3.0 x 8 mm [place]; postdilated with 4.0 NC). Recommendations: To PCU for continued monitoring Reloaded with clopidogrel 300 mg daily. IV fluids for RENNY prevention Continue extended dual antiplatelet therapy with now at least 8 total stents Continue ASCVD risk factor modification. Consider PCSK9/bempedoic acid as outpatient. Consult cardiac Rehab Hemodynamics Rest Ao:: 152/78/108 Final Ao: 157/64/95 LV: 183/8 Recommendations Recommendations: Medical Therapy and/or Counseling Specimens Specimens: None Radiation Exposure (mGy) 3404 Contrast (mls) 95 Anesthesia Moderate 0993-5506 Procedural Complication(s) None Disposition PCU I attest to the content of the Intraoperative Record and any orders documented therein. Any exceptions are noted below. [employer] Card Cath Procedure Codes Cardiac Catheterization Procedure 1: Cardiovascular Cath Procedures: 61849 Coronaries and LHC (+/-LV) Therapeutic Services & Ancillary Procedure 1: Cardiovascular Tx and Anc Procedures: 37018 IV Ultrasound (Coronary or Graft) Moderate Sedation Procedure 1: Sedation/Anesthesia: 92387 Mod Sedation by the same physician;Init15 Min Child Age 5 & Up Procedure 2: Sedation/Anesthesia: 40609 Mod Sedation by the same physician; Nathaniel [id number] Minutes Stenting Procedure 1: Cardiovascular Stent Procedures: 90672 Perc transcatheter placement of intracoronary stent(s), with ang Procedure 2: Cardiovascular Stent Procedures: 81897 Ea addl branch of a major coronary artery PG Care Time/CCT Total # of Minutes Spent Total Time Spent with Patient: Total time spent is greater than 50% in coordination of care (as documented) at patient's floor/unit and/or counseling patient:
--- NOTE | 2022-10-26 13:13 | Cardiology Progress Note ---
Date of Service October 26, 2022 Assessment & Plan (1) ACS (acute coronary syndrome): Plan: 2. Multivessel CADpost PCI to OM1, LAD. M 3. New inferolateral wall motion abnormality on echo, EF 50 to 55% 4. 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 Stage III CKD 6. Right subclavian artery stenosis 7. Hypertension 8. COPD/restrictive lung disease Patient post successful PCI to proximal OM and proximal LAD. Continue to monitor on telemetry overnight Can stop heparin Continue long-term DAPT with aspirin, clopidogrel Continue current Toprol-XL, losartan, Imdur. If blood pressure remains high would add amlodipine, stop Imdur. Intolerant to multiple statins. Consider bempedoic acid/PCSK9 as an outpatient If stable overnight possible discharge tomorrow. Follow-up with Dr. Nazario in 2 weeks. Admission and Anticipated Discharge Date Admission Date: October 25, 2022 Subjective Chest pain-free post PCI today. No chest pain overnight. No other new concerns. Review of Systems Review of Systems: All systems reviewed & are unremarkable except as noted in HPI & below Physical Exam Physical Exam: General: Comfortable HEENT: Sclerae anicteric Lungs: Clear to auscultation bilaterally, no crackles or wheezes Cardiac: Regular rate and rhythm, 2 out of 6 systolic ejection murmur Vascular: 2+ radial pulses bilaterally. Left TR band in place Abdomen: Soft, nontender Extremities: Well perfused, no peripheral edema Neuro: Nonfocal Psych: Alert orient x3, normal affect and mood Results & Data Vital Signs (Past 12 Hours) Vital Signs Temp Pulse Pulse Resp BP BP Pulse Ox 10/26/22 12:45 64 20 116/55 L 96 10/26/22 12:30 55 L 20 172/80 H 95 10/26/22 10:29 59 L 16 185/116 H 97 10/26/22 09:00 55 L 25 H 197/110 H 94 10/26/22 08:00 50 L 13 192/90 H 10/26/22 07:00 49 L 16 175/83 H 10/26/22 09:00 97.7 F 10/26/22 08:00 51 L 10/26/22 04:00 98.2 F 10/26/22 06:00 47 L 10 L 175/80 H 10/26/22 05:00 48 L 15 182/81 H 10/26/22 04:00 47 L 12 166/85 H 10/26/22 03:00 45 L 11 L 10/26/22 02:00 48 L 0 L 148/67 H O2 Del Method 10/26/22 12:45 Room Air 10/26/22 12:30 Room Air 10/26/22 10:29 Room Air 10/26/22 09:00 Room Air 10/26/22 08:00 10/26/22 07:00 10/26/22 09:00 10/26/22 08:00 10/26/22 04:00 10/26/22 06:00 10/26/22 05:00 10/26/22 04:00 10/26/22 03:00 10/26/22 02:00 PG Care Time/CCT Total # of Minutes Spent Total Time Spent with Patient: Total time spent is greater than 50% in coordination of care (as documented) at patient's floor/unit and/or counseling patient: Coding Level of Care Code 85511 SUB INP/OBS CARE 3/50MIN Diagnoses ACS (acute coronary syndrome) I24.9
[2022-10-26] MEDS ORDERED: SODIUM CHLORIDE 0.9% 1000ML 1,000 ML IV SCH (13:15)
[2022-10-26] MEDS: HEPARIN SODIUM/DEXTROSE 25,000 UNITS/500 ML BAG IV SCH (15:27)
[2022-10-26] MEDS ORDERED: hydrALAZINE HCL 20 MG/ML VIAL IV PRN (15:47)
[2022-10-26] MEDS: METOPROLOL TARTRATE 25 MG TAB PO SCH (20:15)
[2022-10-26] MEDS ORDERED: TAMSULOSIN HCL 0.4 MG CAP PO SCH (21:00)
[2022-10-27 07:34] LABS: Basophils # (auto) 0.03 K/uL (0-0.2); Basophils % (auto) 0.5 %; Eosinophils # (auto) 0.28 K/uL (0-0.50); Eosinophils % (auto) 4.4 %; Hematocrit (blood only) 40.8 % (42.0-52.0); Hemoglobin 13.9 g/dl (14.0-18.0); Immature Granulocytes # (auto) 0.01 K/uL (0.01-0.20); Immature Granulocytes % (auto) 0.2 %; Lymphocytes # (auto) 1.22 K/uL (1.2-3.4); Lymphocytes % (auto) 19.3 %; Mean Corpuscular Hemoglobin 33.6 pg (25.0-34.0); Mean Corpuscular Hgb Conc 34.1 g/dL (32.0-36.0); Mean Corpuscular Volume 98.6 fL (80.0-100.0); Mean Platelet Volume 10.7 fL (9.4-12.4); Monocytes # (auto) 0.69 K/uL (0.11-0.59); Monocytes % (auto) 10.9 %; Neutrophils # (auto) 4.09 K/uL (1.40-6.50); Neutrophils % (auto) 64.7 %; Platelet Count 148 K/uL (130-400); RDW Coefficient of Variation 13.1 % (11.5-14.5); RDW Standard Deviation 47.3 fL (36.4-46.3); Red Blood Count 4.14 M/uL (4.70-6.10); White Blood Count 6.32 K/ul (4.8-10.8)
[2022-10-27 07:47] LABS: Anion Gap 5 (3-11); BUN Creatinine Ratio 14.9 (10-20); Blood Urea Nitrogen 24 mg/dl (6-23); Calcium 9.5 mg/dl (8.6-10.3); Carbon Dioxide 26 mmol/L (21-32); Chloride 105 mmol/L (98-107); Creatinine Clr Calc Pharmacy 38.3 ml/min; Est GFR (African American) 45.5 ml/min; Est GFR (Non-African American) 39.2 ml/min; Glucose 86 mg/dl (70-99(Fasting)); Sodium 136 mmol/L (136-145)
[2022-10-27] MEDS: CLOPIDOGREL BISULFATE 75 MG TAB PO SCH (08:00)
[2022-10-27] MEDS: ASPIRIN 81 MG ECTAB PO SCH (08:00)
[2022-10-27] MEDS: CHOLECALCIFEROL 1,000 UNITS 25 MCG TAB PO SCH (08:00)
[2022-10-27] MEDS: ISOSORBIDE MONO EXTENDED REL 30 MG TABCR PO SCH (08:00)
[2022-10-27] MEDS: LOSARTAN POTASSIUM 25 MG TAB PO SCH (08:00)
[2022-10-27] MEDS: UMECLIDINIUM/VILANTEROL 62.5/25MCG 7 PUFFS/INHALER INH SCH (08:01)
[2022-10-27] MEDS: METOPROLOL TARTRATE 25 MG TAB PO SCH (08:01)
[2022-10-27] MEDS: ROSUVASTATIN CALCIUM 20 MG TAB PO SCH (08:01)
[2022-10-27] MEDS ORDERED: METOPROLOL SUCC 50MG EXT REL TAB PO STA (08:23)
--- NOTE | 2022-10-27 09:53 | Cardiology Progress Note ---
Date of Service October 27, 2022 Assessment & Plan (1) ACS (acute coronary syndrome): (2) CAD (coronary artery disease): (3) History of coronary artery stent placement: (4) Aortic stenosis: (5) Aortic regurgitation: (6) Hypertension: (7) Dyslipidemia: Plan ASSESSMENT/PLAN: 1. Acute coronary syndrome: No further angina following PCI to OM1 and LAD. Consider cardiac rehab consider cardiac rehab. 2. CAD s/p prior PCI and current PCI of OM1 and LAD: Continue dual antiplatelet therapy chronically given history of multiple PCI. Continue beta-christelle, ARB, nitrate therapy. Continue high intensity statin therapy. 911 for angina. 3. Hypertension: Continue home regimen of beta-christelle, ARB. Has not tolerated higher doses of ARB per records. Consider amlodipine. Low-sodium diet. 4. Dyslipidemia: Continue high intensity statin therapy. Consider adding PCSK9 inhibitor, which can be done as an outpatient. 5. Aortic stenosis/regurgitation: None severe. Can be followed as an outpatient. 6. Disposition: If able to tolerate ambulation in the hallways, can be di scharged from cardiac standpoint. Close follow-up with his primary leasing sales consultant, Dr. Nazario, in 1 to 2 weeks. Pt care communicated with Dr. Hale of the primary hospitalist service. Admission and Anticipated Discharge Date Admission Date: October 25, 2022 Subjective Patient was seen early this morning. Feels much better following PCI. He denies chest pain, shortness of breath, syncope, near syncope, palpitations, edema, or bleeding. He had not yet ambulated in the hallway. He was alone in his hospital room. Physical Exam Physical Exam: Gen.: No acute distress. Alert and oriented. HEENT: Anicteric sclera. Neck: No JVD. Cardiac: No ventricular heave. Regular rate and rhythm. Normal S1-S2. 2/6 mid peaking systolic ejection murmur. Pulmonary: Clear to auscultation bilaterally without wheezes, rales, or rhonchi. Abdomen: Soft, nontender, nondistended, with normoactive bowel sounds. No bruits noted. Extremities: 2+ radial pulses bilaterally. Left radial cath site was clean, dry, and intact without erythema or discharge. No edema or cyanosis. Psychiatric: Affect appears appropriate. Results & Data Vital Signs (Past 12 Hours) Vital Signs Temp Pulse Pulse Pulse Resp BP Pulse Ox 10/27/22 07:50 51 L 10/27/22 07:09 36.8 C 55 L 17 165/83 H 94 10/27/22 03:08 36.6 C 60 19 143/71 H 96 10/26/22 22:00 58 L 10/26/22 23:08 37.0 C 56 L 17 140/73 96 O2 Del Method 10/27/22 07:50 10/27/22 07:09 Room Air 10/27/22 03:08 Room Air 10/26/22 22:00 10/26/22 23:08 Room Air Laboratory Results Laboratory Results - last 24 hr 10/26/22 10/26/22 10/26/22 11:37 12:17 13:26 WBC RBC Hgb Hct MCV MCH MCHC RDW Std Deviation RDW Coeff of Yolande Plt Count MPV Immature Gran % (Auto) Neut % (Auto) Lymph % (Auto) Wells % (Auto) Eos % (Auto) Baso % (Auto) Neut # (Auto) Lymph # (Auto) Wells # (Auto) Eos # (Auto) Baso # (Auto) Immature Gran # (Auto) Activ Coag Time Kaolin 257 H 281 H Sodium Potassium Chloride Carbon Dioxide Anion Gap BUN Creatinine Est Cr Clr Drug Dosing Est GFR ( Amer) Est GFR (Non-Af Amer) BUN/Creatinine Ratio Glucose POC Glucose 82 Calcium 10/27/22 10/27/22 10/27/22 06:13 06:13 08:12 WBC 6.32 RBC 4.14 L Hgb 13.9 L Hct 40.8 L MCV 98.6 MCH 33.6 MCHC 34.1 RDW Std Deviation 47.3 H RDW Coeff of Yolande 13.1 Plt Count 148 MPV 10.7 Immature Gran % (Auto) 0.2 Neut % (Auto) 64.7 Lymph % (Auto) 19.3 Wells % (Auto) 10.9 Eos % (Auto) 4.4 Baso % (Auto) 0.5 Neut # (Auto) 4.09 Lymph # (Auto) 1.22 Wells # (Auto) 0.69 H Eos # (Auto) 0.28 Baso # (Auto) 0.03 Immature Gran # (Auto) 0.01 Activ Coag Time Kaolin Sodium 136 Potassium TNP 4.8 Chloride 105 Carbon Dioxide 26 Anion Gap 5 BUN 24 H Creatinine 1.61 H Est Cr Clr Drug Dosing 38.3 Est GFR ( Amer) 45.5 Est GFR (Non-Af Amer) 39.2 BUN/Creatinine Ratio 14.9 Glucose 86 POC Glucose Calcium 9.5 Diagnostic Findings Telemetry personally reviewed: Sinus rhythm. No arrhythmia. Cardiac cath 10/26/2022 Summary: 1. Multivessel coronary artery disease -99% proximal OM1. Patent prox-mid circumflex stent 75% proximal LAD by IVUS. Mid LAD stent patent. Diffuse residual mid LAD disease up to 60%. 70% small distal LAD Patent mid RCA and distal RCA into PDA stents. 2. Normal intracardiac filling pressure 3. Successful PCI of proximal OM1 with single drug-eluting stent (2.25 x 18 mm Protem; postdilated with 2.5 NC). 4. Successful PCI of proximal LAD with single drug-eluting stent (3.0 x 8 mm Protem; postdilated with 4.0 NC). Labs reviewed and notable for abnormal but stable renal function, stable blood counts. Medications Administered Current Inpatient Medications Acetaminophen (Acetaminophen 325 Mg Tab) 650 mg PO Q4H PRN PRN Reason: Pain or Fever Stop: 11/24/22 14:28 Albuterol (Albuterol Hfa 8 Gm Inhaler) 2 puffs INH Q4R PRN PRN Reason: shortness of breath or wheezing Stop: 11/24/22 14:28 Aspirin (Aspirin 81 Mg Ectab) 81 mg PO DAILY [facility] Stop: 11/25/22 08:59 Last Admin: 10/27/22 08:00 Dose: 81 mg Clopidogrel Bisulfate (Clopidogrel Bisulfate 75 Mg Tab) 75 mg PO DAILY [facility] Stop: 11/25/22 08:59 Last Admin: 10/27/22 08:00 Dose: 75 mg Hydralazine HCl (Hydralazine Hcl 20 Mg/Ml Vial) 10 mg IV Q8 PRN PRN Reason: sbp>185 or dbp>95 Stop: 11/25/22 15:46 Isosorbide Mononitrate (Isosorbide Wells Extended Rel 30 Mg Tabcr) 30 mg PO DAILY [facility] Stop: 11/25/22 08:59 Last Admin: 10/27/22 08:00 Dose: 30 mg Losartan Potassium (Losartan Potassium 25 Mg Tab) 25 mg PO DAILY [facility] Stop: 11/25/22 08:59 Last Admin: 10/27/22 08:00 Dose: 25 mg Nitroglycerin (Nitroglycerin Sl 0.4 Mg/Tab Tab) 0.4 mg SL Q5M PRN PRN Reason: chest pain Stop: 11/24/22 14:28 Rosuvastatin Calcium (Rosuvastatin Calcium 20 Mg Tab) 20 mg PO QAM [facility] Stop: 11/25/22 08:59 Last Admin: 10/27/22 08:01 Dose: 20 mg Tamsulosin HCl (Tamsulosin Hcl 0.4 Mg Cap) 0.4 mg PO HS [facility] Stop: 11/25/22 20:59 Last Admin: 10/26/22 20:07 Dose: 0.4 mg Umeclidinium/Vilanterol (Umeclidinium/Vilanterol 62.5/25mcg 7 Puffs/Inhaler) 1 puffs INH DAILY [facility]; Protocol Stop: 11/25/22 08:59 Last Admin: 10/27/22 08:01 Dose: 1 puffs Vitamin D (Cholecalciferol 1,000 Units 25 Mcg Tab) 2,000 units PO DAILY [facility] Stop: 11/25/22 08:59 Last Admin: 10/27/22 08:00 Dose: 2,000 units PG Care Time/CCT Total # of Minutes Spent Total Time Spent with Patient: Total time spent is greater than 50% in coordination of care (as documented) at patient's floor/unit and/or counseling patient: Coding Level of Care Code 00439 SUB INP/OBS CARE 2/35MIN Diagnoses ACS (acute coronary syndrome) I24.9 CAD (coronary artery disease) I25.110 Associated angina: with unstable angina Coronary Disease-Associated Artery/Lesion type: unspecified vessel or lesion type [place] vs. transplanted heart: eagle heart History of coronary artery stent placement Z95.5 Aortic stenosis I35.0 Aortic regurgitation I35.1 Hypertension I10 Dyslipidemia E78.5 (2) CAD (coronary artery disease) Associated angina: with unstable angina Coronary Disease-Associated Artery/Lesion type: unspecified vessel or lesion type [place] vs. transplanted heart: eagle heart Qualified Code(s): I25.110 - Atherosclerotic heart disease of [place] coronary artery with unstable angina pectoris
--- NOTE | 2022-10-27 16:31 | Discharge Summary ---
Date of Service October 27, 2022 Admission HPI Per Admitting Provider José Miguel Coyne is an 82-year-old male with past medical history of CAD, CKD 3, COPD, hypertension, impaired fasting glucose, aortic stenosis who presents with an episode of left arm pain and chest discomfort. History of VT 08/31/2022. Pending nuclear stress test as outpatient, feels his pain worsened prior to being able to do this. Reports yesterday evening L arm was completely numb from the elbow to the arm pit and had tingling. Woke him up, rolled over, and seemed to get better. 6am felt similar while laying on it but had pain return with some chest pressure. Got out of bed around 8am and he took 1x nitro around 8:30a and another around 9am and the pain did not get any better or worse. Continued at ~8/10 and going into the armpit on his left side. On arrival he got 4x aspirin and pain completely resolved. He has no pain at the time of bedside assessment. No weakness. No confusion. NO sweating durign the episode. No shortness of breath during the episode. No other extremity weakness, no facial droop. Speech was normal. Muñoz snoted since august 'I just peter out quicker.' Greatly reduced exercise tolerance and gets tired very easily, but no pain. Denies exertional angina in the preceding months. He denies orthopnea, but notes that he sleeps with a CPAP and is more comfortable on the side and generally does not sleep laying on his back. Did have a tracheotomy in the 1970s and notes that if he lays on his back or sometimes bends over in a certain position it makes it very hard for him to breathe, this is chronic with no recent change. Denies weight gain. No leg edema He took all his morning medications. No history of bleeding problems. Does bruise a little easy. No hx blood clots. Feels completely back to his baseline after receiving aspirin. Medical History: Reviewed Medications: Reviewed Surgical History: Reviewed Family history: Reviewed Allergies: Reviewed Social History: No tobacco use. Rare social etoh use. Code Status: Full Code Principal Diagnosis nstemi, s/p 2 drug eluting stents placed Discharge Exam cardiac exam is regular, systolic murmur, left hand is without neurologic change Discharge Data Allergies Allergy/AdvReac Type Severity Reaction Status Date / Time niacin Allergy Intermediate ITCHING Verified 09/27/22 14:55 Penicillins Allergy Intermediate RASH Verified 09/27/22 14:55 irbesartan [From Avapro] Allergy Unknown Unknown Verified 09/27/22 14:55 iron AdvReac Severe CHEST PAIN Verified 09/27/22 14:55 zinc AdvReac Severe CHEST PAIN Verified 09/27/22 14:55 atorvastatin AdvReac Intermediate INTOLERANT Verified 09/27/22 14:55 ezetimibe AdvReac Intermediate ACHE AND Verified 09/27/22 14:55 JOINT PAIN metoprolol AdvReac Intermediate AT HIGHER Verified 09/27/22 14:55 DOSAGE - MUSCLES ACHES pravastatin [From Pravachol] AdvReac Intermediate INTOLERANT Verified 09/27/22 14:55 simvastatin AdvReac Intermediate INTOLERANT Verified 09/27/22 14:55 Consultations 10/25/22 12:20 ED Decision to Admit Stat 10/25/22 14:29 Consult Cardiology Routine Procedures Performed Operation Date: 10/26/22 10:30 Actual Procedures p Cineradiography w/Routine Exam(Left) - Marcellus Richardson MD s Cath, Left with Cors and Vent - Marcellus Richardson MD s Drug Eluting Stent SGl Vessel - Marcellus Richardson MD s IVUS Coronary Single Vessel - Marcellus Richardson MD s Drug Eluting Stent each ADDTL Vessel - Marcellus Richardson MD Ordered Studies 10/26/22 10:21 CL Cath Imgs for PACS use only Routine 10/26/22 12:44 CL IVUS Coronary Single Vessel Routine Hospital Course (1) Chest pain: Chest pain/arm pain, history of NSTEMI Patient with troponins in the 500 range. Initiated on heparin therapy patient taken to the cardiac catheterization laboratory which showed: 1. Multivessel coronary artery disease -99% proximal OM1. Patent prox-mid circumflex stent 75% proximal LAD by IVUS. Mid LAD stent patent. Diffuse residual mid LAD disease up to 60%. 70% small distal LAD Patent mid RCA and distal RCA into PDA stents. 2. Normal intracardiac filling pressure 3. Successful PCI of proximal OM1 with single drug-eluting stent (2.25 x 18 mm [place]; postdilated with 2.5 NC). 4. Successful PCI of proximal LAD with single drug-eluting stent (3.0 x 8 mm [place]; postdilated with 4.0 NC). Recommendations postcatheterization of the following IV fluids for RENNY prevention Continue extended dual antiplatelet therapy with now at least 8 total stents Continue ASCVD risk factor modification. Consider PCSK9/bempedoic acid as outpatient. Consult cardiac Rehab (2) COPD (chronic obstructive pulmonary disease): COPD, chronic, stable - Stiolto works well at home 2 puffs BID. 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 Since this gets some breathing trouble if he bends over sharply or chin to chest, but this has been chronic since with no recent change. No change in this, no acute management (3) CKD (chronic kidney disease), stage III: stable post procedure (4) Subclavian artery stenosis: Total Time Total Time Spent Total Time Spent (In Minutes): It required greater than 30 minutes to prepare this patient for discharge Discharge Plan Discharge Items Patient Disposition: Home - Self-Care Reason For Visit: CHEST PAIN/NSTEMI EVAL Discharge Diagnosis: Unstable angina NSTEMI, cardioversion, status post deployment of drug-eluting stent x2 Activity: Per Instructions section Activity Comment: No intentional exercise until cleared by cardiology, consider cardiac rehab Non-emergency contact: Primary Care Provider and [employer] Worker Call non-emergency contact if: your symptoms worsen Follow-up/Referrals: Jak Howard MD [Primary Care Provider] - Diet: Heart Healthy Addtl Attending Provider Instructions: ACTIVITY RECOMMENDATIONS: Excess manipulation of the wrist should be avoided for the next 24-48 hours. * No lifting over 2 pounds (approximately a 1/2 gallon of milk) with the utilized arm for 24 hours. * No strenuous activity such as bowling or tennis for 3 days. * Keep the site of the procedure covered with a bandage for 24 hours. *You may shower the day after the procedure. Do not take a tub bath or submerge the puncture site in water for the next 3 days. *Do not operate any motorized equipment for 3 days. SPECIAL CARE INSTRUCTIONS: The site may be slightly bruised and sore following your procedure. Should any of the following occur, contact the DrLizet who performed your procedure. 1. Redness/inflammation, swelling, chills, or fever, or colored drainage at procedure site within 3-7 days after your procedure. 2. Coldness, discoloration, ongoing numbness, severe pain, or swelling. Expect mild tingling of hand and tenderness at the puncture site for up to three days. If this persists beyond three days, or other symptoms develop, notify the Dr. who performed your procedure. BLEEDING: If the procedure site on your wrist begins to bleed, do not panic 1. Place 1 or 2 fingers firmly just slightly above the insertion site to stop the bleeding. You may be able to feel your pulse as you hold pressure. 2. Lift your finger after 5 minutes to see if the bleeding has stopped. 3. Once the bleeding has stopped, gently wipe the wrist area clean with a bandage. * If the bleeding from your wrist does not stop after 10 minutes, or if there is a large amount of bleeding or spurting, call 911 (do not drive yourself to the hospital). SKIN IRRITATION: * You may experience some redness and/or swelling in the area where radiation was administered. If any skin irritation occurs, please contact your family physician. FOLLOW UP VISIT: Keep any scheduled doctor appointments. Pending Studies at Discharge: No Stand-Alone Forms: My [facility] digiSchool, Smoking Cessation Medications and DC Order Prescriptions: Continued albuterol sulfate 90 mcg/actuation HFA aerosol inhaler 2 puff inhalation Q4H PRN (Reason: shortness of breath or wheezing) Qty: 6.7 5RF nitroglycerin 0.4 mg tablet, sublingual 0.4 mg SL Q5M PRN (Reason: chest pain) Qty: 25 0RF metoprolol succinate 100 mg tablet extended release 24 hr 100 mg PO DAILY Qty: 90 3RF losartan 50 mg tablet 25 mg PO DAILY Qty: 90 3RF tamsulosin 0.4 mg capsule 0.4 mg PO DAILY Qty: 90 3RF rosuvastatin [Crestor] 20 mg tablet 20 mg PO QAM 90 Days Qty: 30 3RF isosorbide mononitrate 30 mg tablet extended release 24 hr 30 mg PO DAILY Qty: 90 3RF coenzyme Q10 [Co Q-10] 0 mg PO BID aspirin 81 mg Tablet,Delayed Release (Dr/Ec) 81 mg PO DAILY cholecalciferol (vitamin D3) [Vitamin D3] 50 mcg (2,000 unit) Capsule 50 mcg PO DAILY Stiolto Respimat 2.5-2.5 mcg/actuation Mist 2 puff INHALATION DAILY clopidogrel 75 mg tablet 75 mg PO DAILY Discharge Orders: Discharge Order (Routine); Ordered 10/27/22 Ordered By: Chace Hale Admission Data Admit Date/Time: 10/25/22 12:49 Attending Provider: Chace Hale Admit Provider: Wilmer Shafer Primary Care Provider: Jak Howard Other Providers: Wilmer Shafer ; Milton Hayes Other Interventions: Discharge Summary Assessment (RN) Last Done: 10/27/22 10:51 Coding Level of Care Code 51608 INP/OBS DISCH >30 MIN Diagnoses Chest pain R07.2 Chest pain type: precordial pain COPD (chronic obstructive pulmonary disease) J44.9 CKD (chronic kidney disease), stage III N18.3 Subclavian artery stenosis I77.1
--- NOTE | 2022-10-27 21:52 | Electrocardiogram Report ---
Test Reason : Blood Pressure : / mmHG Vent. Rate : 053 BPM Atrial Rate : 053 BPM P-R Int : 182 ms QRS Dur : 094 ms QT Int : 444 ms P-R-T Axes : 061 -21 168 degrees QTc Int : 416 ms Sinus bradycardia Left ventricular hypertrophy with repolarization abnormality Inferior infarct Abnormal ECG When compared with ECG of 02-SEP-2022 02:26, No significant change was found Confirmed by Milton Hayes ([id number]) on 10/27/2022 9:52:46 PM Referred By: REFERRED SELF Confirmed By:Milton Hayes
--- NOTE | 2022-10-27 22:07 | Electrocardiogram Report ---
Test Reason : Blood Pressure : / mmHG Vent. Rate : 049 BPM Atrial Rate : 049 BPM P-R Int : 172 ms QRS Dur : 084 ms QT Int : 464 ms P-R-T Axes : -16 -22 165 degrees QTc Int : 419 ms Sinus bradycardia Left ventricular hypertrophy with repolarization abnormality Possible Inferior infarct Abnormal ECG When compared with ECG of 25-OCT-2022 10:08, No significant change was found Confirmed by Milton Hayes ([id number]) on 10/27/2022 10:07:29 PM Referred By: REFERRED SELF Confirmed By:Milton Hayes
== END 2022-10-27 11:15 | disposition home or self-care (01) ==
LOC: ED 09:56 → SUATTDRO 12:49 → 1E 12:49 → INTOOBSV 12:49 → 1E 13:55 → 2S 10-26 18:46